=== PATIENT | male | born 1970 | race Caucasian/White ===

== ENCOUNTER 2019-07-28 19:52 | Observation (INO) | payer MEDICARE, MEDICAID ==
[~2019-07-28] VITALS: Ht 188 cm; Wt 108.4 kg
[~2019-07-28 19:52] MED LIST: ACHYD1T PO; ATOR40TA PO; BRIM5DRO12 OP; BRIM5DRO12 OU; C250T PO; CALC-685 PO; CALTRATE 600 +1 EACH PO; CPR500T PO; DCS100C PO; LEVE100015 PO; LORA2TAB PO; MULT-1029 PO; NITR-65 PO; TRAM50TA2 PO; VENL150C PO; VITAMIN C 1000MG PO
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
[2019-07-28 20:16] LABS: BASOPHILS % (AUTO) 0 % (0-10); EOSINOPHILS # (AUTO) 0.4 10^3/uL (0.0-0.3); EOSINOPHILS % (AUTO) 3 % (0-10); HEMATOCRIT 44 % (40-54); HEMOGLOBIN 14.8 G/DL (13.3-17.7); LYMPHOCYTES # (AUTO) 2.2 X 10^3 (1.0-4.0); LYMPHOCYTES % (AUTO) 16 % (12-44); MEAN CORPUSCULAR HEMOGLOBIN 32 PG (25-34); MEAN CORPUSCULAR HGB CONC 34 G/DL (32-36); MEAN CORPUSCULAR VOLUME 94 FL (80-99); MEAN PLATELET VOLUME 10.9 FL (7.4-10.4); MONOCYTES # (AUTO) 1.9 X 10^3 (0.0-1.0); MONOCYTES % (AUTO) 14 % (0-12); NEUTROPHILS # (AUTO) 8.8 X 10^3 (1.8-7.8); NEUTROPHILS % (AUTO) 66 % (42-75); PLATELET COUNT 217 10^3/uL (130-400); RED CELL DISTRIBUTION WIDTH 13.4 % (10.0-14.5); WHITE BLOOD COUNT 13.3 10^3/uL (4.3-11.0)
[2019-07-28 20:34] LABS: ALANINE AMINOTRANSFERASE 55 U/L (0-55); ALBUMIN 3.9 GM/DL (3.2-4.5); ALKALINE PHOSPHATASE 69 U/L (40-136); BILIRUBIN,TOTAL 0.2 MG/DL (0.1-1.0); BUN/CREATININE RATIO 15; CALCIUM 9.3 MG/DL (8.5-10.1); CARBON DIOXIDE 19 MMOL/L (21-32); CHLORIDE 106 MMOL/L (98-107); CREATININE SERUM 0.86 MG/DL (0.60-1.30); GFR ESTIMATED > 60; GLUCOSE 192 MG/DL (70-105); POTASSIUM 4.5 MMOL/L (3.6-5.0); SODIUM 139 MMOL/L (135-145); TOTAL PROTEIN 7.1 GM/DL (6.4-8.2)
--- NOTE | 2019-07-28 20:39 | Diagnostic Imaging Report ---
HISTORY: Fall TECHNIQUE: Single frontal view of the chest COMPARISON: 04/29/2013 FINDINGS: Lung volumes are low. There is mild airspace opacity in the right upper lobe. No pleural effusion or pneumothorax is seen. The cardiac silhouette and mediastinum appear mildly prominent, likely due to low lung volumes. There is tubing overlying the right chest. IMPRESSION: 1. Mild airspace opacities in the right upper lobe. This may be due to atelectasis given the low lung volumes, versus infiltrate. Dictated by: Dictated on workstation # [id number]
[2019-07-28 20:40] LABS: INR 0.9 (0.8-1.4); PROTHROMBIN TIME PATIENT 12.6 SEC (12.2-14.7)
--- NOTE | 2019-07-28 20:40 | Diagnostic Imaging Report ---
HISTORY: Fall with left hip pain TECHNIQUE: Frontal view of the pelvis. Frontal and lateral views of the left hip COMPARISON: 12/31/2012 FINDINGS: Tubing extends along the right pelvis and there is also tubing into the pelvis of the midline. Alignment appears normal. No acute fracture is seen. Joint spaces are preserved. There is heterogeneous material overlying the lower pelvis external to the patient. There may be mild cortical irregularity along the left ilioischial line. IMPRESSION: 1. Subtle cortical irregularity along the left ilioischial line, could represent a nondisplaced fracture. Consider cross-sectional imaging for further evaluation. Dictated by: Dictated on workstation # [id number]
[2019-07-28] MEDS ORDERED: NS IV 1000 ML 1,000 ML IV SCH (20:45)
[2019-07-28] MEDS ORDERED: LIDOCAINE UROJET 2% GEL 10 ML PKG ONE (21:10)
--- NOTE | 2019-07-28 21:20 | NUR ---
IN ROOM TO STRAIGT CATH PATIENT FOR URINE SAMPLE, PATIENT IS INCONTINENT AT THIS TIME A LARGE AMOUNT OF YELLOW URINE. NO SKIN BREAKDOWN NOTED. CLEANSED AND CHANGED. PATIENT DENIES ADDITONAL NEEDS AND DEMONSTRATES USE OF CALL LIGHT WHICH IS LAYING WITHIN REACH OF PATIENT. FREQUENT MONITORING MAINTAINED.
--- NOTE | 2019-07-28 21:25 | Diagnostic Imaging Report ---
PROCEDURE: CT left lower extremity without contrast. TECHNIQUE: Multiple contiguous axial images were obtained through the left lower extremity without the use of intravenous contrast. Sagittal and coronal reformations were then performed. Auto Exposure Controls were utilized during the CT exam to meet ALARA standards for radiation dose reduction. INDICATION: Fall, left hip pain COMPARISON: Radiographs from the same day FINDINGS: No acute fracture is seen in the left hip. There is slight irregularity at the medial cortex of the left acetabulum which appears to be chronic. There is a sclerotic focus at the medial left acetabulum which is consistent with a bone island. There are mild degenerative changes in the left hip joint. There is mild enthesopathy at the ischial tuberosity. Mild degenerative changes seen in the left sacroiliac joint. There is mild generalized muscular atrophy without focal atrophy seen. No soft tissue fluid collections are identified. No free fluid is seen in the pelvis. There is tubing seen within the pelvis near the midline. There is a small fat-containing left inguinal hernia. Calcifications in the left adductor musculature may be from remote trauma. IMPRESSION: 1. Chronic findings in the left hip with no acute osseous abnormality seen. Dictated by: Dictated on workstation # [id number]
[2019-07-28] MEDS ORDERED: KETOROLAC 30 MG/ML VIAL IVP ONE (21:30)
[2019-07-28] MEDS ORDERED: LIDOCAINE UROJET 2% GEL 10 ML PKG TOP ONE (21:30)
[2019-07-28 21:31] LABS: BILIRUBIN,URINE NEGATIVE (NEGATIVE); CLARITY,URINE CLEAR; COLOR,URINE YELLOW; GLUCOSE, URINE (UA) NEGATIVE (NEGATIVE); KETONES,URINE TRACE (NEGATIVE); LEUKOCYTE ESTERASE ,URINE NEGATIVE (NEGATIVE); NITRITE,URINE NEGATIVE (NEGATIVE); PH,URINE 6.5 (5-9); PROTEIN,URINE NEGATIVE (NEGATIVE)
--- OUTSIDE RECORDS SUMMARY | 2019-07-28 21:40 | XMS REPORT ---
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 [employer] [facility] [facility] [place] Address [address] [address] Care Team Providers Care Fuel Buyer Name Role Phone LETTY, NIKKI Unavailable Unavailable KENYETTA FU Unavailable [facility] Unavailable [phone] SAENZ, NIKKI K Unavailable KENYETTA FU Unavailable KENYETTA FU Unavailable GAULT, ADRIANO Unavailable GAULT, ADRIANO Unavailable GAULT, ADRIANO Unavailable GAULT, ADRIANO Unavailable GAULT, ADRIANO Unavailable STUART FRANK Unavailable Unavailable GAULT, ADRIANO Unavailable GAULT, ADRIANO Unavailable Migration, Doctor Unavailable Unavailable Migration, Doctor Unavailable Unavailable Migration, Doctor Unavailable Unavailable Migration, Doctor Unavailable Unavailable Migration, Doctor Unavailable Unavailable SAENZ, NIKKI Unavailable SAENZ, NIKKI Unavailable SAENZ, NIKKI Unavailable SAENZ, NIKKI Unavailable SAENZ, NIKKI Unavailable SAENZ, NIKKI Unavailable SAENZ, NIKKI Unavailable SAENZ, NIKKI Unavailable SAENZ, NIKKI Unavailable GAMCKAY, ADRIANO Unavailable Unavailable KENYETTA FU Unavailable SAENZ, NIKKI Unavailable SAENZ, NIKKI Unavailable SAENZ, NIKKI Unavailable SAENZ, NIKKI Unavailable SAENZ NIKKI Unavailable SAENZ, NIKKI Unavailable KENYETTA FU Unavailable SAENZ, NIKKI Unavailable SAENZ, NIKKI Unavailable SAENZ, NIKKI Unavailable Unavailable Unavailable Unavailable Unavailable Allergies The data below is from unstructured sources Allergen Type Severity Reaction Last Updated No Known Drug Allergies 09/21/12 No Information Medications Medication Ingredient Drug Dose Dates Status Sig Sig Care Class(es) (Normalized) (Original) Provid er no Calcium no Active no Calcium no information Carb-Cholec information information Carb-Choleca name (1 source.) alciferol lciferol Active no Calcium-Vit no Active no Calcium-Manjula no information woo D information information min D name (3 600-400 600-400 sources.) MG-UNIT MG-UNIT Translation Active s: [ Calcium-Vit woo D 600-400 MG-UNIT, Calcium-Vit woo D 600-400 MG-UNIT] no Centrum no 06-12-19 Active no Centrum by no information information 12 information Oral route name (1 source.) May, Active no Centrum no Active no Centrum no information Silver - information information Silver - name (3 Translation Active sources.) s: [ Centrum Silver -, Centrum Silver -] guaiFENesin guaiFENesin no 600 mg 12-03-19 Active take 1 Muc inex 600 no 600 mg oral Translation information 14 tablet by mg 1 tab let name tablet (4 s: [ mouth every by Oral sources.) Mucinex twelve hours route every Maximum as needed 12 hours PRN Strength with plenty 1200 MG, of water 10 Mucinex Nov, 2013 Maximum Active Strength 1200 MG] 1200 mg Active no Mucinex no name inform Maximum ation Strength 1200 MG Orally every 12 hrs 1 tablet as needed 12h Active no Multiple no Active no Multiple no information Vitamins-Mi information information Vitamins-Min name (1 source.) nerals erals Active no Multivitami no 01-06-20 Active no Multivitamin no information n information 13 information 1 Tablet 1 name (1 source.) preparation time per day Dec, Active no senokot-s no Active no Docusate no information information information Sodium name (1 source.) Active no valproate no Active no Depakote no information Translation information information Active na me (4 s: [ sources.) Depakote 500 mg, Depakote 500 mg] 500 mg Active no Depakote no name inform 500 mg ation Orally 2 times a day 1 tablet 12h Active Problems Problem Normalized Date Last Normalized Normalized Provider Fa cility Classification Problem(s) Recorded Problem Problem Sta tus Duration Unclassified Edema, Episodic Active ADRIANO BATES Communit y (20 sources.) unspecified [address] [place] [address] Translations: of [facility] [ - Dependent [place] ([address]) edema R60.9, - Lower extremity edema R60.0, - Lower extremity edema R60.0, - Dependent edema R60.9] Medical Encounter for Episodic Active ADRIANO Hayden ity examination/ev general adult [address] [place] [address] aluation (4 medical of [facility] sources.) examination [place] ([address]) without abnormal findings Translations: [ - Well adult health check Z00.00, - Medicare annual wellness visit, initial Z00.00] Immunizations Encounter for Episodic Active ADRIANO BATES Co mmunity and screening immunization [address] [place] [address] for infectious Translations: of [facility] disease (20 [ - Encounter [place] ([address]) sources.) for immunization Z23, - Encounter for immunization Z23] Residual Localized Episodic Active ADRIANO BATES Community codes; edema [address] [place] [address] unclassified Translations: of [facility] (20 sources.) [ - [place] ([address]) extremity edema R60.0] Other Other symptoms Episodic Active ADRIANO BATES Commu nity connective and signs [address] [place] [address] tissue disease involving the of [facility] (20 sources.) musculoskeleta [place] ([address]16) l system Translations: [ - Weakness of both lower limbs R29.898, - Weakness of both lower limbs R29.898] Spinal cord Unspecified Episodic Active ADRIANO BATES Commun ity injury (20 injury at [address] [place] [address] sources.) unspecified of [facility] level of [place] ([address]) thoracic spinal cord, sequela Translations: [ - Spinal cord injury of thoracic region without bone injury, sequela S24.109S, - Spinal cord injury of thoracic region without bone injury, sequela S24.109S] Intracranial Unspecified Episodic Active ADRIANO BATES Commu nity injury (20 [facility] sources.) injury with of [facility] (22032) consciousness of unspecified duration, sequela Translations: [ - Traumatic brain injury, with loss of consciousness of unspecified duration, sequela S06.9X9S, - Traumatic brain injury with loss of consciousness, sequela S06.9X9S, - Traumatic brain injury, with loss of consciousness of unspecified duration, sequela S06.9X9S, Traumatic brain injury with loss of consciousness, sequela, Traumatic brain injury with loss of consciousness, sequela, - Traumatic brain injury with loss of consciousness, sequela S06.9X9S, Traumatic brain injury with loss of consciousness, sequela] Procedures Procedure Normalized Procedure Procedure Result Performer Facility Date 04-14-2014 Blood count complete no information no name [facility] auto&auto difrntl wbc [facility] ([id number]) 04-14-2014 Comprehensive no information no name [facility] metabolic panel [facility] ([id number]) 11-12-2017 Dental prophylaxis no information no name [facility] adult [facility] ([id number]) 09-12-2017 Fall risk assessment no information no name [facility] docd [facility] ([id number]) 07-23-2017 FQHC visit, estab pt no information no name [facility] ([id number]) 01-14-2017 FQHC visit, estab pt no information no name [facility] ([id number]) 09-12-2017 FQ visit, IPPE or no information no name [facility] AWV [facility] ([id number]) 09-12-2017 Pt tobacco screen rcvd no information no name [facility] tlk [facility] ([id number]) 08-10-2013 Quantitation drug not no information [facility] specified [facility] ([id number]) 04-14-2014 Radiologic examination no information no name [facility] ankle 2 views [facility] ([id number]) 11-12-2017 Topical fluoride no information no name [facility] ([id number]) 04-14-2014 Urnls dip stick/tablet no information no name [facility] rgnt auto w/o [facility] ([id number]) Immunizations Normalized Immunization Date Notes Care Provider Facili ty Immunization influenza, 01-14-2017 - no information ADRIANO BATES [address] [facility] injectable, 01-14-2017 [facility] [place] preservative free Translations: [ FLUARIX QUAD (3 AND UP) 2016] influenza, seasonal, 01-28-2018 no information no name [facility] injectable [facility] ([id number]) tetanus toxoid, 09-12-2017 - no information ADRIANO BATES [address] [facility] reduced diphtheria 09-12-2017 [facility] ([id number]) acellular pertussis vaccine, adsorbed Translations: [ SINGLE IMMUNIZATION ADMIN, TDAP (BOOSTRIX)] SINGLE IMMUNIZATION 01-14-2017 no information ADRIANO BATES 6676 2 [facility] ([id number]) Results The data below is from unstructured sourcesNo Known Results No Results No ResultsNo Known Relevant Diagnostic Tests, Laboratory Data and/or Discharge Summary.No Known Relevant Diagnostic Tests, Laboratory Data and/or Discharge Summary. No Results No Results No Results No Results No Results No Results No Results No Results No Results No Results No Results No Results No Results No Results No Results No Results No Results No Results No Results No Results No Results No Results No Results No Results No Results No Results No Results No Results No Results No Results No Results No Results No Results No Results No Results No Results No Results No Results No Results No Results No Results No Results No Results No Results No Results No Results No Results No Results No Results No Results No Results No Results No Results No Results No Results No Results Vital Signs Vital Sign Value Interpretation Reference Date Time Care Prov ider Facility (Normalized) (Normalized) Range BMI (Body Mass 34.41 kg/m2 (no code) 15 - 25 kg/m2 09-12-2017 HO Y GAULT Community Index) 12:20-[id number] [place] [address] ([id number]) BMI (Body Mass 37.61 kg/m2 (no code) 15 - 25 kg/m2 07-23-2017 HO LLY GAULT Community Index) 14:20-[id number] [place] [address] ([id number]) Body height 187.96 cm (no code) cm 08-24-2013 [employer] [facility] 12:520400 79577 [facility] [place] [facility] ([id number]) Body 97.9 [degF] (no code) 97.8 - 99.0 09-12-2017 [facility]ANOMinnie [facility] Temperature [degF] 12:[id number] [place] [address] ([id number]) Body 98.2 [degF] (no code) 97.8 - 99.0 07-23-2017 AD[facility]ANOMinnie [facility] Temperature [degF] 14: [address] [place] [address] ([id number]) Body 98 [degF] (no code) 97.8 - 99.0 01-14-2017 ADRIANO GI-ViewMCKAY [facility] Temperature [degF] 12:[address] [place] [address] ([id number]) Body 98.6 [degF] (no code) 97.8 - 99.0 08-24-2013 NIKKI SAENZ [facility] temperature [degF] 12:520400 [address] [place] [address] ([id number]) Height 187.96 cm (no code) cm 09-12-2017 ADRIANO GAULT Co mmunity 12: [address] [place] [address] ([id number]) Height 187.96 cm (no code) cm 07-23-2017 ADRIANO GAULT Co mmunity 14: [address] [place] [address] ([id number]) Height 187.96 cm (no code) cm 01-14-2017 ADRIANO GAULT Co mmunity 12:[address] [place] [address] ([id number]) Weight 121.56 kg (no code) kg 09-12-2017 ADRIANO GAULT Co mmunity 12:[address] [place] [address] ([id number]) Weight 132.9 kg (no code) kg 07-23-2017 ADRIANO GAULT Com munity 14: [address] [place] [address] ([id number]) Interventions No Information Plan of Treatment The data below is from unstructured sources Activity Details Follow Up 3 Months with Gault CHM Re ason: Activity Details Follow Up 6 Months with Josy Mallory, will schedule MAWV Reason: Activity Details Follow Up 1 Year with Josy for MAWV Reason: Activity Details Follow Up prn Reason:Recall Goals No Information Social History The data below is from unstructured sources History Response Recorde d Date/Time Hx Family Cancer N 12/25 3:20pm Hx Family Breast Cancer N 12/25/12 3:20pm Hx Family Lung Cancer N 12/25/12 3:20pm Hx Family Colorectal Cancer N 12/25/12 3:20pm Hx Family Cardiac Disorders N 12/25/12 3:20pm Hx Family Stroke N 12/25 3:20pm Hx Family Hypertension Y 12/25/12 3:20pm Hx Family Myocardial Infarction N 12/25/12 3:20pm Hx Family Cystic Fibrosis N 12/25/12 3:20pm History Response Recorde d Date/Time Alcohol Use Denies Use 1 3:32pm Recreational Drug Use N 12/25/12 3:32pm Sexually Transmitted Disease N 12/25/12 3:32pm HIV/AIDS N 12/25/12 3:32 pm History Response Recorde d Date/Time Alcohol Use Denies Use 0 09/21/12 1:20pm Recreational Drug Use N 09/21/12 1:20pm Functional Status No Information Mental Status No Information Encounters Encounter Normalized Encounter Encounter Diagnosis Care Provi valeria Organization Date Type 01-14-2017 (ACUTE) Acute Visit Edema, unspecified ADRIANO BATES (no phone) [facility] - (no phone) 01-14-2017 - 01-14-2017 09-17-2016 (ACUTE) Acute Visit Localized edema ADRIANO BATES (no phone) [facility] - (no phone) 09-17-2016 - 09-17-2016 01-28-2018 (M) Chronic Health Anxiety disorder, ADRIANO BATES (no phone) [facility] - Maintenance unspecified (no phone) 01-28-2018 - 01-28-2018 07-23-2017 (M) Chronic Health Hemiplegia, ADRIANO BATES (no ph one) [facility] - Maintenance unspecified affecting (no cherie ne) 07-23-2017 left nondominant side - 07-23-2017 08-06-2016 (CHM) Chronic Health Dependence on ADRIANO TOLEDOMCKAY (no phone) [facility] - Maintenance wheelchair (no phone) 08-06-2016 - 08-06-2016 11-12-2017 (d-outreach) Dental Encounter for dental STUART MURPHY (no [facility] - Outreach examination and phone) DENTAL (no phone) 11-12-2017 cleaning without - abnormal findings 11-12-2017 02-08-2016 (ESTAB) Establish Care Unspecified ADRIANO BATES (no phone) [facility] - intracranial injury (no phone) 02-08-2016 with loss of - consciousness of 02-08-2016 unspecified duration, sequela 09-12-2017 (MAWV) Medicare Annual Encounter for general ADRIANO BATES (no phone) [facility] - Wellness Visit adult medical (no phone) 09-12-2017 examination without - abnormal findings 09-12-2017 06-19-2016 [facility] no information ADRIANO BATES (no cherie ne) [facility] - NONFQHC NONFQHC (no phone) 06-19-2016 - 06-19-2016 06-12-2016 [facility] no information ADRIANO BATES (no cherie ne) [facility] - NONFQHC NONFQHC (no phone) 06-12-2016 - 06-12-2016 02-01-2017 [facility] no information ADRIANO BATES (n o phone) [facility] - (no phone) 02-01-2017 - 02-01-2017 07-11-2016 [facility] no information ADRIANO BATES (n o phone) [facility] - (no phone) 07-11-2016 - 07-11-2016 03-07-2016 [facility] no information KENYETTA FU (no [facility] - phone) (no phone) 03-07-2016 - 03-07-2016 02-22-2016 [facility] no information KENYETTA FU (no [facility] - phone) (no phone) 02-22-2016 - 02-22-2016 02-07-2016 [facility] no information NIKKI SAENZ (no phone) [facility] - (no phone) 02-07-2016 - 02-07-2016 12-20-2014 [facility] no information NIKKI SAENZ (no phone) [facility] - (no phone) 12-20-2014 - 12-20-2014 07-06-2014 [facility] no information Doctor Migrati on (no [facility] - phone) (no phone) 07-06-2014 - 07-06-2014 07-05-2014 [facility] no information Doctor Migrati on (no [facility] - phone) (no phone) 07-05-2014 - 07-05-2014 05-13-2014 [facility] no information NIKKI SAENZ (no phone) [facility] - Doctor Migration (no (no phone) 05-13-2014 phone) Doctor - Migration (no phone) 05-13-2014 NIKKI SAENZ (no phone) NIKKI SAENZ (no phone) Doctor Migration (no phone) 05-12-2014 [facility] no information Doctor Migrati on (no [facility] - phone) (no phone) 05-12-2014 - 05-12-2014 05-11-2014 [facility] no information NIKKI SAENZ (no phone) [facility] - Doctor Migration (no (no phone) 05-11-2014 phone) NIKKI SAENZ (no - phone) Doctor 05-11-2014 Migration (no phone) NIKKI SAENZ (no phone) Doctor Migration (no phone) 04-26-2014 [facility] no information NIKKI SAENZ (no phone) [facility] - Doctor Migration (no (no phone) 04-26-2014 phone) NIKKI SAENZ (no - phone) Doctor 04-26-2014 Migration (no phone) Doctor Migration (no phone) NIKKI SAENZ (no phone) 04-14-2014 [facility] no information NIKKI SAENZ (no phone) [facility] - Doctor Migration (no (no phone) 04-14-2014 phone) NIKKI SAENZ (no - phone) Doctor 04-14-2014 Migration (no phone) Doctor Migration (no phone) NIKKI SAENZ (no phone) 03-08-2014 [facility] no information NIKKI SAENZ (no phone) [facility] - Doctor Migration (no (no phone) 03-08-2014 phone) NIKKI SAENZ (no - phone) Doctor 03-08-2014 Migration (no phone) Doctor Migration (no phone) NIKKI SAENZ (no phone) 12-18-2013 [facility] no information NIKKI SAENZ (no phone) [facility] - Doctor Migration (no (no phone) 12-18-2013 phone) NIKKI SAENZ (no - phone) Doctor 12-18-2013 Migration (no phone) Doctor Migration (no phone) NIKKI SAENZ (no phone) 12-02-2013 [facility] no information NIKKI SAENZ (no phone) [facility] - Doctor Migration (no (no phone) 12-02-2013 phone) NIKKI SAENZ (no - phone) Doctor 12-02-2013 Migration (no phone) NIKKI SAENZ (no phone) Doctor Migration (no phone) 10-19-2013 [facility] no information NIKKI SAENZ (no phone) [facility] - Doctor Migration (no (no phone) 10-19-2013 phone) NIKKI SAENZ (no - phone) Doctor 10-19-2013 Migration (no phone) NIKKI SAENZ (no phone) Doctor Migration (no phone) 10-16-2013 [facility] no information NIKKI SAENZ (no phone) [facility] - Doctor Migration (no (no phone) 10-16-2013 phone) NIKKI SAENZ (no - phone) Doctor 10-16-2013 Migration (no phone) Doctor Migration (no phone) NIKKI SAENZ (no phone) 09-28-2013 [facility] no information Doctor Migrati on (no [facility] - phone) KENYETTA FU (no phone) 09-28-2013 (no phone) Doctor - Migration (no phone) 09-28-2013 KENYETTA FU (no phone) Doctor Migration (no phone) KENYETTA FU (no phone) 08-24-2013 [facility] no information NIKKI SAENZ (no phone) [facility] - Doctor Migration (no (no phone) 08-24-2013 phone) NIKKI SAENZ (no - phone) Doctor 08-24-2013 Migration (no phone) NIKKI SAENZ (no phone) Doctor Migration (no phone) 08-10-2013 [facility] no information Doctor Migrati on (no [facility] - phone) NIKKI SAENZ (no (no phone) 08-10-2013 phone) Doctor - Migration (no phone) 08-10-2013 NIKKI SAENZ (no phone) Doctor Migration (no phone) NIKKI SAENZ (no phone) 08-04-2013 [facility] no information NIKKI SAENZ (no phone) [facility] - Doctor Migration (no (no phone) 08-04-2013 phone) NIKKI SAENZ (no - phone) Doctor 08-04-2013 Migration (no phone) NIKKI SAENZ (no phone) Doctor Migration (no phone) 07-10-2013 [facility] no information NIKKI SAENZ (no phone) [facility] - Doctor Migration (no (no phone) 07-10-2013 phone) NIKKI SAENZ (no - phone) Doctor 07-10-2013 Migration (no phone) NIKKI SAENZ (no phone) Doctor Migration (no phone) 07-03-2013 [facility] no information KENYETTA FU (no [facility] - phone) Doctor (no phone) 07-03-2013 Migration (no phone) - KENYETTA FU (no 07-03-2013 phone) Doctor Migration (no phone) KENYETTA FU (no phone) Doctor Migration (no phone) 06-19-2013 [facility] no information NIKKI SAENZ (no phone) [facility] - Doctor Migration (no (no phone) 06-19-2013 phone) NIKKI SAENZ (no - phone) Doctor 06-19-2013 Migration (no phone) NIKKI SAENZ (no phone) Doctor Migration (no phone) 05-18-2013 [facility] no information NIKKI SAENZ (no phone) [facility] - Doctor Migration (no (no phone) 05-18-2013 phone) NIKKI SAENZ (no - phone) Doctor 05-18-2013 Migration (no phone) Doctor Migration (no phone) NIKKI SAENZ (no phone) 05-05-2013 [facility] no information Doctor Migrati on (no [facility] - phone) NIKKI SAENZ (no (no phone) 05-05-2013 phone) Doctor - Migration (no phone) 05-05-2013 NIKKI SAENZ (no phone) NIKKI SAENZ (no phone) Doctor Migration (no phone) 04-29-2013 [facility] no information Doctor Migrati on (no [facility] - phone) (no phone) 04-29-2013 - 04-29-2013 04-09-2013 [facility] no information NIKKI SAENZ (no phone) [facility] - Doctor Migration (no (no phone) 04-09-2013 phone) NIKKI SAENZ (no - phone) Doctor 04-09-2013 Migration (no phone) Doctor Migration (no phone) NIKKI SAENZ (no phone) 04-02-2013 [facility] no information NIKKI SAENZ (no phone) [facility] - Doctor Migration (no (no phone) 04-02-2013 phone) NIKKI SAENZ (no - phone) Doctor 04-02-2013 Migration (no phone) Doctor Migration (no phone) NIKKI SAENZ (no phone) 02-26-2013 [facility] no information Doctor Migrati on (no [facility] - phone) NIKKI SAENZ (no (no phone) 02-26-2013 phone) Doctor - Migration (no phone) 02-26-2013 NIKKI SAENZ (no phone) NIKKI SAENZ (no phone) Doctor Migration (no phone) 02-13-2013 [facility] no information Doctor Migrati on (no [facility] - phone) (no phone) 02-13-2013 - 02-13-2013 02-12-2013 [facility] no information NIKKI SAENZ (no phone) [facility] - Doctor Migration (no (no phone) 02-12-2013 phone) NIKKI SAENZ (no - phone) Doctor 02-12-2013 Migration (no phone) Doctor Migration (no phone) NIKKI SAENZ (no phone) 01-05-2013 [facility] no information NIKKI SAENZ (no phone) [facility] - Doctor Migration (no (no phone) 01-05-2013 phone) NIKKI SAENZ (no - phone) Doctor 01-05-2013 Migration (no phone) Doctor Migration (no phone) NIKKI SAENZ (no phone) 12-25-2012 [facility] no information NIKKI SAENZ (no phone) [facility] - (no phone) 12-25-2012 - 12-25-2012 12-08-2012 [facility] no information NIKKI SAENZ (no phone) [facility] - (no phone) 12-08-2012 - 12-08-2012 10-23-2012 [facility] no information NKIKI SAENZ (no phone) [facility] - (no phone) 10-23-2012 - 10-23-2012 10-16-2012 [facility] no information NIKKI SAENZ (no phone) [facility] - (no phone) 10-16-2012 - 10-16-2012 10-15-2012 [facility] no information NIKKI SAENZ (no phone) [facility] - (no phone) 10-15-2012 - 10-15-2012 09-23-2012 [facility] no information Doctor Migrati on (no [facility] - phone) (no phone) 09-23-2012 - 09-23-2012 06-30-2012 [facility] no information NIKKI SAENZ (no phone) [facility] - (no phone) 06-30-2012 - 06-30-2012 06-27-2012 [facility] no information Doctor Migrati on (no [facility] - phone) (no phone) 06-27-2012 - 06-27-2012 05-09-2012 [facility] no information NIKKI SAENZ (no phone) [facility] - (no phone) 05-09-2012 - 05-09-2012 03-26-2012 [facility] no information NIKKI SAENZ (no phone) [facility] - (no phone) 03-26-2012 - 03-26-2012 02-25-2012 [facility] no information KENYETTA FU (no [facility] - phone) Doctor (no phone) 02-25-2012 Migration (no phone) - KENYETTA FU (no 02-25-2012 phone) Doctor Migration (no phone) Doctor Migration (no phone) KENYETTA FU (no phone) 01-07-2012 [facility] no information Doctor Migrati on (no [facility] - phone) KENYETTA FU (no phone) 01-07-2012 (no phone) Doctor - Migration (no phone) 01-07-2012 KENYETTA FU (no phone) KENYETTA FU (no phone) Doctor Migration (no phone) 12-27-2011 [facility] no information NIKKI SAENZ (no phone) [facility] - (no phone) 12-27-2011 - 12-27-2011 12-18-2011 [facility] no information Doctor Migrati on (no [facility] - phone) (no phone) 12-18-2011 - 12-18-2011 12-11-2011 [facility] no information KENYETTA FU (no [facility] - phone) (no phone) 12-11-2011 - 12-11-2011 11-22-2011 [facility] no information KENYETTA FU (no [facility] - phone) (no phone) 11-22-2011 - 11-22-2011 09-27-2011 [facility] no information KENYETTA FU (no [facility] - phone) (no phone) 09-27-2011 - 09-27-2011 08-30-2011 [facility] no information NIKKI SAENZ (no phone) [facility] - (no phone) 08-30-2011 - 08-30-2011 06-14-2011 [facility] no information NIKKI SAENZ (no phone) [facility] - (no phone) 06-14-2011 - 06-14-2011 06-13-2011 [facility] no information NIKKI SAENZ (no phone) [facility] - (no phone) 06-13-2011 - 06-13-2011 06-12-2011 [facility] no information NIKKI SAENZ (no phone) [facility] - (no phone) 06-12-2011 - 06-12-2011 06-11-2011 [facility] no information NIKKI SAENZ (no phone) [facility] - (no phone) 06-11-2011 - 06-11-2011 05-10-2011 [facility] no information NIKKI SAENZ (no phone) [facility] - (no phone) 05-10-2011 - 05-10-2011 01-05-2011 [facility] no information Doctor Migrati on (no [facility] - phone) (no phone) 01-05-2011 - 01-05-2011 12-05-2010 [facility] no information Doctor Migrati on (no [facility] - phone) (no phone) 12-05-2010 - 12-05-2010 03-14-2009 [facility] no information Doctor Migrati on (no [facility] - phone) (no phone) 03-14-2009 - 03-14-2009 02-21-2009 [facility] no information Doctor Migrati on (no [facility] - phone) (no phone) 02-21-2009 - 02-21-2009 02-15-2009 [facility] no information Doctor Migrati on (no [facility] - phone) (no phone) 02-15-2009 - 02-15-2009 02-07-2009 [facility] no information Doctor Migrati on (no [facility] - phone) (no phone) 02-07-2009 - 02-07-2009 09-12-2017 Patient encounter no information no name no or ganization name 07-23-2017 Patient encounter no information no name no or ganization name NEGATED Patient encounter no information no name no or ganization name 11-11-2018 Patient encounter no information no name no or ganization name procedure 02-12-2018 Patient encounter no information no name no or ganization name procedure 09-12-2017 [facility], initial visit no information no name no organization name 01-24-2018 Telephone encounter no information ADRIANO BATES (no phone) JACQUI [facility] - (no phone) 01-24-2018 - 01-24-2018 no information Encounter

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
--- OUTSIDE RECORDS SUMMARY | 2019-07-28 21:40 | XMS REPORT ---
Author Author Bradley SANEZ [facility] Address [address] [place] [address] Care Team Providers Care Private Secretary Name Role Phone NIKKI SAENZ Unavailable PROBLEMS Type Condition ICD9-CM Code SBD47-OT Code Onset Dates Condition S tatus SNOMED Code Problem Other specified glaucoma, unspecified laterality H 40.89 Active 50404522 Problem Mood disorder F39 Active 663028 05 Problem Anxiety F41.9 Active 32005959 Problem Traumatic brain injury with loss of consciousness, sequela S06.9X9S Active 569979694 Problem Hemiplegia, unspecified etio logy, unspecified hemiplegia laterality, unspecified hemiplegia type G81.90 Active 50550665 Problem Other urinary incontinence N39.498 Act bertha 212016355 Problem Other generalized epilepsy, 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, 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 Active 89700755 Problem Wheel chair as ambulatory aid Z99.3 Active 122708790 Problem Seizure disorder G40.909 Active 128 322607 Problem Left hemiplegia G81.94 Active 2782 49578 ALLERGIES No Information ENCOUNTERS Encounter Location Date Diagnosis [facility] [employer] [facility] [address] [place] [address] May, Seizure disorder G40.909 ; Left hemipleg ia G81.94 and Mood disorder F39 [facility] [address] [facility] [id number] [address] [place] [address] Apr, Seizure disorder G40.909 [facility] [address] [facility] [id number] [address] [place] [address] Apr, [facility] [address] [facility] [id number] [address] [place] [address] Feb, [facility] [address] [facility] [id number] [address] [place] [address] Feb, [facility] [address] [facility] [id number] [address] [place] [address] Feb, [facility] [address] [place] [address] Feb, Mood disorder F39 ; Anxiety F41.9 ; Left hemiplegia G81.94 ; Seizure disorder G40.909 ; Traumatic brain injury with loss of consciousness, sequela S06.9X9S ; Other specified glaucoma, unspecified laterality H40.89 and Other urinary incontinence N39.498 [facility] [address] [facility] [id number] [address] [place] [address] Jan, [facility] [address] [place] [address] Oct, Insect bite (nonvenomous) of right forea rm, initial encounter S50.861A [place] [address] [facility] [id number] [address] [place] [address] Sep, [facility] [address] [facility] [id number] [address] [place] [address] Aug, Rash R21 [facility] [address] [place] [address] Aug, Ringworm B35.9 [place] [id number] [facility] [id number] [address] [place] [address] July, [facility] [address] [facility] [id number] [address] [place] [address] July, [facility] [address] [facility] [id number] [address] [place] [address] Jan, [place] [address] [facility] [id number] [address] [place] [address] Jan, Anxiety F41.9 ; Wheel chair as ambulatory aid Z99.3 ; Left hemiplegia G81.94 and Encounter for immunization Z23 [facility] [address] [facility] [id number] [address] [place] [address] Jan, [facility] [address] [id number] [address] [place] [id number] Oct, Dental examination Z01.20 [place] [address] [place] [id number] [address] [place] [address] Aug, Medicare annual wellness vis it, initial Z00.00 ; Traumatic brain injury with loss of consciousness, sequela S06.9X9S ; Anxiety F41.9 ; Mood disorder F39 ; Other specified glaucoma, unspecified laterality H40.89 ; Hemiplegia, unspecified etiology, unspecified hemiplegia laterality, unspecified hemiplegia type G81.90 ; Other generalized epilepsy, 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ble, 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 ; Left hemiplegia G81.94 and Encounter for immunization Z23 [place] [address] [place] [id number] [address] [place] [address] July, Left hemiplegia G81.94 ; Low er extremity edema R60.0 ; Seizure disorder G40.909 and Wheel chair as ambulatory aid Z99.3 [place] [address] [address] Jan, [place] [address] [address] Dec, Dependent edema R60.9 and He miplegia, unspecified etiology, unspecified hemiplegia laterality, unspecified hemiplegia type G81.90 [place] [address] [place] [id number] [address] [place] [address] Aug, Lower extremity edema R60.0 [place] [address] [place] [id number] [address] [place] [address] July, Wheel chair as ambulatory ai d Z99.3 ; Hemiplegia, unspecified etiology, unspecified hemiplegia laterality, unspecified hemiplegia type G81.90 ; Spinal cord injury of thoracic region without bone injury, sequela S24.109S and Weakness of both lower limbs R29.898 [place] [address] [place] [id number] [address] [place] [address] Jun, [facility] [address] [id number] [place] [id number] May, [facility] [address] [id number] [place] [id number] May, [facility] [address] [id number] [address] [place] [address] Feb, [facility] [address] [facility] [id number] [address] [place] [address] 30 Jan, 2016 [facility] [address] [id number] [address] [place] [address] 16 Jan, 2016 Traumatic brain injury, with loss of consciousness of unspecified duration, sequela S06.9X9S ; Well adult health check Z00.00 and Other generalized epilepsy, 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ble, 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 [facility] [address] [facility] [id number] [address] [place] [address] Jan, [facility] [address] [facility] [id number] [address] [place] [address] Nov, [facility] [address] [facility] [id number] [address] [place] [address] Jun, [facility] [address] [facility] [id number] [address] [place] [address] Jun, [facility] [address] [facility] [id number] [address] [place] [address] Apr, [facility] [address] [facility] [id number] [address] [place] [address] Apr, [facility] [address] [id number] [address] [place] [address] 18 Apr, 2014 [facility] [address] [facility] [id number] [address] [place] [address] 17 Apr, 2014 [facility] [address] [facility] [id number] [address] [place] [address] Apr, [facility] [address] [id number] [address] [place] [address], [place] [address] Apr, [facility] [address] [id number] [address] [place] [address], [place] [address] Apr, [facility] [address] [id number] [address] [place] [address], [place] [address] Mar, [facility] [address] [id number] [address] [place] [address], [place] [address] Mar, [facility] [address] [id number] [address] [place] [address], [place] [address] Feb, [facility] [address] [id number] [address] [place] [address], [place] [address] Feb, [facility] [address] [id number] [address] [place] [address], [place] [address] Nov, [facility] [address] [id number] [address] [place] [address], [place] [address] Nov, [facility] [address] [id number] [address] [place] [address], [place] [address] Nov, [facility] [address] [id number] [address] [place] [address], [place] [address] Nov, [facility] [address] [id number] [address] [place] [address], [place] [address] Nov, [facility] [address] [id number] [address] [place] [address], [place] [address] Nov, [facility] [address] [id number] [address] [place] [address], [place] [address] Sep, [facility] [address] [id number] [address] [place] [address], [place] [address] Sep, [facility] [address] [id number] [address] [place] [address], [place] [address] Sep, [facility] [address] [id number] [address] [place] [address], [place] [address] Sep, [facility] [address] [id number] [facility] [place] [address] Sep, [facility] [address] [id number] [address] [place] [address], [place] [address] Sep, [facility] [address] [id number] [address] [place] [address], [place] [address] Aug, [facility] [address] [id number] [address] [place] [address], [place] [address] Aug, [facility] [address] [id number] [address] [place] [address], [place] [address] July, [facility] [address] [id number] [address] [place] [address], [place] [address] July, [facility] [address] [id number] [address] [place] [address], [place] [address] July, [facility] [address] [id number] [address] [place] [address], [place] [address] July, [facility] [address] [id number] [address] [place] [address], [place] [address] Jun, [facility] [address] [id number] [address] [place] [address], [place] [address] Jun, [facility] [address] [id number] [address] [place] [address], [place] [address] Jun, [facility] [address] [id number] [address] [place] [address], [place] [address] Jun, [facility] [address] [id number] [address] [place] [address], [place] [address] May, [facility] [address] [id number] [address] [place] [address], [place] [address] May, [facility] [address] [id number] [address] [place] [address], [place] [address] Apr, [facility] [address] [id number] [address] [place] [address], [place] [address] Apr, [facility] [address] [id number] [address] [place] [address], [place] [address] Apr, [facility] [address] [id number] [address] [place] [address], [place] [address] Apr, [facility] [address] [id number] [address] [place] [address], [place] [address] Apr, [facility] [address] [id number] [address] [place] [address], [place] [address] Mar, [facility] [address] [id number] [address] [place] [address], [place] [address] Mar, [facility] [address] [id number] [address] [place] [address], [place] [address] Mar, [facility] [address] [id number] [address] [place] [address], [place] [address] Mar, [facility] [address] [id number] [address] [place] [address], [place] [address] Feb, [facility] [address] [id number] [address] [place] [address], [place] [address] Feb, [facility] [address] [id number] [address] [place] [address], [place] [address] Jan, [facility] [address] [id number] [address] [place] [address], [place] [address] Jan, [facility] [address] [id number] [address] [place] [address], [place] [address] Jan, [facility] [address] [id number] [address] [place] [address], [place] [address] Jan, [facility] [address] [id number] [address] [place] [address], [place] [address] 14 Dec, 2012 [facility] [address] [id number] [address] [place] [address], [place] [address] 14 Dec, 2012 [facility] [address] [id number] [address] [place] [address], [place] [address] Dec, [facility] [address] [id number] [address] [place] [address], [place] [address] Nov, [facility] [address] [id number] [address] [place] [address], [place] [address] Oct, [facility] [address] [id number] [address] [place] [address], [place] [address] Sep, [facility] [address] [id number] [address] [place] [address], [place] [address] Sep, [facility] [address] [id number] [address] [place] [address], [place] [address] Sep, [facility] [address] [id number] [address] [place] [address], [place] [address] Jun, [facility] [address] [id number] [address] [place] [address], [place] [address] Jun, [facility] [address] [id number] [address] [place] [address], [place] [address] Apr, [facility] [address] [id number] [address] [place] [address], [place] [address] Mar, [facility] [address] [id number] [address] [place] [address], [place] [address] Feb, [facility] [address] [id number] [address] [place] [address] Feb, [facility] [address] [id number] [address] [place] [address], [place] [address] Dec, [facility] [address] [id number] [address] [place] [address], [place] [address] Dec, [facility] [address] [id number] [address] [place] [address], [place] [address] Dec, [facility] [address] [id number] [address] [place] [address], [place] [address] 25 Nov, 2011 [facility] [address] [id number] [address] [place] [address], [place] [address] 18 Nov, 2011 [facility] [address] [id number] [address] [place] [address], [place] [address] 30 Oct, 2011 [facility] [address] [id number] [address] [place] [address], [place] [address] 05 Sep, 2011 [facility] [address] [id number] [address] [place] [address], [place] [address] Aug, [facility] [address] [id number] [address] [place] [address], [place] [address] 22 May, 2011 [facility] [address] [id number] [address] [place] [address], [place] [address] May, [facility] [address] [id number] [address] [place] [address], [place] [address] May, [facility] [address] [id number] [address] [place] [address], [place] [address] May, [facility] [address] [id number] [address] [place] [address], [place] [address] May, [facility] [address] [id number] [address] [place] [address], [place] [address] 16 Apr, 2011 [facility] [address] [id number] [address] [place] [address], [place] [address] 14 Dec, 2010 [facility] [address] [id number] [address] [place] [address], [place] [address] 13 Nov, 2010 [facility] [address] [id number] [address] [place] [address], [place] [address] Feb, [facility] [address] [id number] [address] [place] [address], [place] [address] 30 Jan, 2009 [facility] [address] [id number] [address] [place] [address], [place] [address] Jan, [facility] [address] [facility] [id number] [address] [place] [address] Jan, [facility] [address] [facility] [id number] [address] [place] [address] Jan, IMMUNIZATIONS No Known Immunizations SOCIAL HISTORY [...]
--- OUTSIDE RECORDS SUMMARY | 2019-07-28 21:41 | XMS REPORT ---
Author Author Bradley SAENZ [facility] Address [address] [place] [address] Care Team Providers Care Stained Glass Artist Name Role Phone NIKKI SAENZ Unavailable PROBLEMS Type Condition ICD9-CM Code QHY95-WS Code Onset Dates Condition S tatus SNOMED Code Problem Other specified glaucoma, unspecified laterality H 40.89 Active 65966135 Problem Mood disorder F39 Active 882958 05 Problem Anxiety F41.9 Active 96409233 Problem Traumatic brain injury with loss of consciousness, sequela S06.9X9S Active 279697888 Problem Hemiplegia, unspecified etio logy, unspecified hemiplegia laterality, unspecified hemiplegia type G81.90 Active 14888025 Problem Other urinary incontinence N39.498 Act bertha 740444570 Problem Other generalized epilepsy, 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 [address] [id number] [place] [address] Apr, Seizure disorder G40.909 [facility] [id number] [place] [address] Apr, [facility] [address] [id number] [place] [address] Feb, [facility] [address] [id number] [place] [address] Feb, [place] [id number] [address] Feb, [facility] [address] [place] [address] Feb, Mood disorder F39 ; Anxiety F41.9 ; Left hemiplegia G81.94 ; Seizure disorder G40.909 ; Traumatic brain injury with loss of consciousness, sequela S06.9X9S ; Other specified glaucoma, unspecified laterality H40.89 and Other urinary incontinence N39.498 [place] [address] [address] Jan, [facility] [address] [place] [address] Oct, Insect bite (nonvenomous) of right forea rm, initial encounter S50.861A [place] [address] [address] Sep, [place] [address] [address] Aug, Rash R21 [facility] [address] [place] [address] Aug, Ringworm B35.9 [place] [address] [address] July, [place] [address] [address] July, [place] [address] [address] Jan, [place] [address] [address] Jan, Anxiety F41.9 ; Wheel chair as ambulator y aid Z99.3 ; Left hemiplegia G81.94 and Encounter for immunization Z23 [place] [address] [address] Jan, [facility] [id number] [place] [id number] Oct, Dental examination Z01.20 [place] [address] [address] Aug, Medicare annual wellness visit, initial Z00.00 ; Traumatic brain injury with loss of consciousness, sequela S06.9X9S ; Anxiety F41.9 ; Mood disorder F39 ; Other specified glaucoma, unspecified laterality H40.89 ; Hemiplegia, unspecified etiology, unspecified hemiplegia laterality, unspecified hemiplegia type G81.90 ; Other generalized epilepsy, 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ble, 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 ; Left hemiplegia G81.94 and Encounter for immunization Z23 [place] [address] [address] July, Left hemiplegia G81.94 ; Lower extremity edema R60.0 ; Seizure disorder G40.909 and Wheel chair as ambulatory aid Z99.[address] [address] Jan, [place] [address] [address] Dec, Dependent edema R60.9 and Hemiplegia, un specified etiology, unspecified hemiplegia laterality, unspecified hemiplegia type G81.90 [place] [address] [address] Aug, Lower extremity edema R60.0 [place] [address] [address] July, Wheel chair as ambulatory aid Z99.3 ; He miplegia, unspecified etiology, unspecified hemiplegia laterality, unspecified hemiplegia type G81.90 ; Spinal cord injury of thoracic region without bone injury, sequela S24.109S and Weakness of both lower limbs R29.898 [place] [address] [address] Jun, [place] [address] [place] [id number] [facility] [place] [id number] May, [id number] [place] [id number] May, [facility] [address] [address] Feb, [facility] [address] [address] Jan, [facility] [address] [address] Jan, Traumatic brain injury, with loss of con sciousness of unspecified duration, sequela S06.9X9S ; Well adult health check Z00.00 and Other generalized epilepsy, 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ble, 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 [facility] [address] [address] Jan, [facility] [address] [address] 28 Nov, 2014 [facility] [address] [address] 14 Jun, 2014 [facility] [address] [address] 13 Jun, 2014 [facility] [address] [address] Apr, [facility] [address] [address] Apr, 2014 [facility] [address] [address] 18 Apr, 2014 [facility] [address] [address] Apr, 2014 [facility] [address] [address] Apr, 2014 [facility] [address] [address] Apr, 2014 [facility] [address] [address] Apr, 2014 [facility] [address] [facility] [id number] [place] [address] Mar, [facility] [address] [facility] [id number] [place] [address] Mar, [facility] [address] [id number] [place] [address] Feb, [facility] [address] [id number] [place] [address] Feb, [facility] [address] [facility] [id number] [place] [address] Nov, [facility] [address] [facility] [id number] [place] [address] Nov, [facility] [address] [id number] [place] [address] Nov, [facility] [address] [id number] [place] [address] Nov, [facility] [address] [id number] [place] [address] Nov, [facility] [address] [id number] [place] [address] Nov, [facility] [address] [id number] [place] [address] Sep, [facility] [address] [id number] [place] [address] Sep, [facility] [address] [id number] [place] [address] Sep, [facility] [address] [facility] [id number] [place] [address] Sep, [facility] [address] [id number] [place] [address] Sep, [facility] [address] [id number] [place] [address] Sep, [facility] [address] [id number] [place] [address] Aug, [facility] [address] [facility] [id number] [place] [address] Aug, [facility] [address] [facility] [id number] [facility] [place] [address] July, [facility] [address] [facility] [id number] [place] [address] July, [facility] [address] [id number] [place] [address] July, [facility] [address] [facility] [id number] [place] [address] July, [facility] [address] [id number] [place] [address] Jun, [facility] [address] [id number] [place] [address] Jun, [facility] [address] [id number] [place] [address] Jun, [facility] [address] [id number] [place] [address] Jun, [facility] [address] [id number] [place] [address] May, [facility] [address] [id number] [place] [address] May, [facility] [address] [id number] [place] [address] Apr, [facility] [address] [facility] [id number] [place] [address] Apr, [facility] [address] [id number] [place] [address] Apr, [facility] [address] [id number] [place] [address] Apr, [facility] [address] [id number] [place] [address] Apr, [facility] [address] [id number] [place] [address] Mar, [facility] [address] [id number] [place] [address] Mar, [facility] [address] [id number] [place] [address] Mar, [facility] [address] [id number] [place] [address] Mar, [facility] [address] [id number] [place] [address] Feb, [facility] [address] [id number] [place] [address] Feb, [facility] [address] [id number] [place] [address] Jan, [facility] [id number] [place] [address] Jan, [facility] [id number] [place] [address] Jan, [facility] [address] [id number] [place] [address] Jan, [facility] [address] [id number] [place] [address] Dec, [facility] [address] [id number] [place] [address] Dec, [facility] [address] [id number] [place] [address] Dec, [facility] [address] [id number] [place] [address] Nov, [facility] [id number] [place] [address] Oct, [facility] [address] [id number] [place] [address] Sep, [facility] [address] [id number] [place] [address] Sep, [facility] [address] [id number] [place] [address] Sep, [facility] [address] [id number] [place] [address] Jun, [facility] [address] [id number] [place] [address] Jun, [facility] [id number] [place] [address] Apr, [facility] [address] [id number] [place] [address] Mar, [facility] [id number] [place] [address] Feb, [facility] [id number] [place] [address] Feb, [facility] [id number] [place] [address] Dec, [facility] [id number] [place] [address] Dec, [facility] [id number] [place] [address] Dec, [facility] [id number] [place] [address] Nov, [facility] [id number] [place] [address] Nov, [facility] [address] [id number] [place] [address] Oct, [facility] [address] [id number] [place] [address] Sep, [facility] [id number] [place] [address] Aug, [facility] [address] [id number] [place] [address] May, [facility] [id number] [place] [address] May, [facility] [id number] [place] [address] May, [facility] [id number] [place] [address] May, [facility] [id number] [place] [address] May, [facility] [id number] [place] [address] Apr, [facility] [id number] [place] [address] Dec, [facility] [address] [address] Nov, [facility] [id number] [place] [address] Feb, [facility] [id number] [place] [address] 30 Jan, 2009 [facility] [id number] [place] [address] Jan, [facility] [id number] [place] [address] Jan, [facility] [id number] [place] [address] Jan, IMMUNIZATIONS No Known Immunizations SOCIAL HISTORY [...]
--- OUTSIDE RECORDS SUMMARY | 2019-07-28 21:41 | XMS REPORT ---
Author Author Bradley FU Organization [facility] Address [address] [place] [address] Care Team Providers Care Utility Division Project Manager Name Role Phone KENYETTA FU Unavailable PROBLEMS Type Condition ICD9-CM Code HCE43-ZY Code Onset Dates Condition S tatus SNOMED Code Problem Other specified glaucoma, unspecified laterality H 40.89 Active 10122783 Problem Mood disorder F39 Active 942167 05 Problem Anxiety F41.9 Active 04407672 Problem Traumatic brain injury with loss of consciousness, sequela S06.9X9S Active 758980063 Problem Hemiplegia, unspecified etio logy, unspecified hemiplegia laterality, unspecified hemiplegia type G81.90 Active 23829794 Problem Other urinary incontinence N39.498 Act bertha 691011425 Problem Other generalized epilepsy, 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, 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 Active 67611531 Problem Wheel chair as ambulatory aid Z99.3 Active 235255605 Problem Seizure disorder G40.909 Active 128 393393 Problem Left hemiplegia G81.94 Active 2782 37544 ALLERGIES No Information ENCOUNTERS Encounter Location Date Diagnosis [facility] [employer] [facility] [address] [place] [address] May, Seizure disorder G40.909 ; Left hemipleg ia G81.94 and Mood disorder F39 [facility] [address] [facility] [id number] [address] [place] [address] Apr, Seizure disorder G40.909 [facility] [address] [facility] [id number] [address] [place] [address] Apr, [facility] [address] [facility] [id number] [address] [place] [address] Feb, [facility] [address] [facility] [id number] [address] [place] [address] Feb, [facility] [address] [facility] [id number] [address] [place] [address] Feb, [employer] [address] [place] [address] Feb, Mood disorder F39 ; Anxiety F41.9 ; Left hemiplegia G81.94 ; Seizure disorder G40.909 ; Traumatic brain injury with loss of consciousness, sequela S06.9X9S ; Other specified glaucoma, unspecified laterality H40.89 and Other urinary incontinence N39.498 [facility] [address] [facility] [id number] [address] [place] [address] Jan, [employer] [address] [place] [address] Oct, Insect bite (nonvenomous) of right forea rm, initial encounter S50.861A [place] [address] [facility] [id number] [address] [place] [address] Sep, [facility] [address] [facility] [id number] [address] [place] [address] Aug, Rash R21 [employer] [address] [place] [address] Aug, Ringworm B35.9 [place] [address] [facility] [id number] [address] [place] [address] July, [facility] [address] [facility] [id number] [address] [place] [address] July, [facility] [address] [facility] [id number] [address] [place] [address] Jan, [place] [address] [facility] [id number] [address] [place] [address] Jan, Anxiety F41.9 ; Wheel chair as ambulatory aid Z99.3 ; Left hemiplegia G81.94 and Encounter for immunization Z23 [facility] [address] [facility] [id number] [address] [place] [address] Jan, [facility] [address] [id number] [address] [place] [id number] Oct, Dental examination Z01.20 [place] [address] [place] [id number] [address] [place] [address] Aug, Medicare annual wellness vis it, initial Z00.00 ; Traumatic brain injury with loss of consciousness, sequela S06.9X9S ; Anxiety F41.9 ; Mood disorder F39 ; Other specified glaucoma, unspecified laterality H40.89 ; Hemiplegia, unspecified etiology, unspecified hemiplegia laterality, unspecified hemiplegia type G81.90 ; Other generalized epilepsy, 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ble, 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 ; Left hemiplegia G81.94 and Encounter for immunization Z23 [place] [address] [place] [id number] [address] [place] [address] July, Left hemiplegia G81.94 ; Low er extremity edema R60.0 ; Seizure disorder G40.909 and Wheel chair as ambulatory aid Z99.3 [place] [address] [address] Jan, [place] [address] [address] Dec, Dependent edema R60.9 and He miplegia, unspecified etiology, unspecified hemiplegia laterality, unspecified hemiplegia type G81.90 [place] [address] [address] [place] [id number] [address] [place] [address] Aug, Lower extremity edema R60.0 [place] [address] [place] [id number] [address] [place] [address] July, Wheel chair as ambulatory ai d Z99.3 ; Hemiplegia, unspecified etiology, unspecified hemiplegia laterality, unspecified hemiplegia type G81.90 ; Spinal cord injury of thoracic region without bone injury, sequela S24.109S and Weakness of both lower limbs R29.898 [place] [address] [place] [id number] [address] [place] [address] Jun, [facility] [address] [id number] [id number] May, [facility] [address] [id number] [place] [id number] May, [facility] [address] [id number] [address] [place] [address] Feb, [facility] [address] [facility] [id number] [address] [place] [address] 30 Jan, 2016 [facility] [address] [id number] [address] [place] [address] 16 Jan, 2016 Traumatic brain injury, with loss of consciousness of unspecified duration, sequela S06.9X9S ; Well adult health check Z00.00 and Other generalized epilepsy, 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ble, 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 [facility] [address] [facility] [id number] [address] [place] [address] Jan, [facility] [address] [facility] [id number] [address] [place] [address] Nov, [facility] [address] [facility] [id number] [address] [place] [address] Jun, [facility] [address] [facility] [id number] [address] [place] [address] Jun, [facility] [address] [facility] [id number] [address] [place] [address] Apr, [facility] [address] [facility] [id number] [address] [place] [address] Apr, [facility] [address] [id number] [address] [place] [address] 18 Apr, 2014 [facility] [address] [facility] [id number] [address] [place] [address] 17 Apr, 2014 [facility] [address] [facility] [id number] [address] [place] [address] Apr, [facility] [address] [id number] [address] [place] [address], [place] [address] Apr, [facility] [address] [id number] [address] [place] [address], [place] [address] Apr, [facility] [address] [id number] [address] [place] [address], [place] [address] Mar, [facility] [address] [id number] [address] [place] [address], [place] [address] Mar, [facility] [address] [id number] [address] [place] [address], [place] [address] Feb, [facility] [address] [id number] [address] [place] [address], [place] [address] Feb, [facility] [address] [id number] [address] [place] [address], [place] [address] Nov, [facility] [address] [id number] [address] [place] [address], [place] [address] Nov, [facility] [address] [id number] [address] [place] [address], [place] [address] Nov, [facility] [address] [id number] [address] [place] [address], [place] [address] Nov, [facility] [address] [id number] [address] [place] [address], [place] [address] Nov, [facility] [address] [id number] [address] [place] [address], [place] [address] Nov, [facility] [address] [id number] [address] [place] [address], [place] [address] Sep, [facility] [address] [id number] [address] [place] [address], [place] [address] Sep, [facility] [address] [id number] [address] [place] [address], [place] [address] Sep, [facility] [address] [id number] [address] [place] [address], [place] [address] Sep, [facility] [address] [id number] [facility] [place] [address] Sep, [facility] [address] [id number] [address] [place] [address], [place] [address] Sep, [facility] [address] [id number] [address] [place] [address], [place] [address] Aug, [facility] [address] [id number] [address] [place] [address], [place] [address] Aug, [facility] [address] [id number] [address] [place] [address], [place] [address] July, [facility] [address] [id number] [address] [place] [address], [place] [address] July, [facility] [address] [id number] [address] [place] [address], [place] [address] July, [facility] [address] [id number] [address] [place] [address], [place] [address] July, [facility] [address] [id number] [address] [place] [address], [place] [address] Jun, [facility] [address] [id number] [address] [place] [address], [place] [address] Jun, [facility] [address] [id number] [address] [place] [address], [place] [address] Jun, [facility] [address] [id number] [address] [place] [address], [place] [address] Jun, [facility] [address] [id number] [address] [place] [address], [place] [address] May, [facility] [address] [id number] [address] [place] [address], [place] [address] May, [facility] [address] [id number] [address] [place] [address], [place] [address] Apr, [facility] [address] [id number] [address] [place] [address], [place] [address] Apr, [facility] [address] [id number] [address] [place] [address], [place] [address] Apr, [facility] [address] [id number] [address] [place] [address], [place] [address] Apr, [facility] [address] [id number] [address] [place] [address], [place] [address] Apr, [facility] [address] [id number] [address] [place] [address], [place] [address] Mar, [facility] [address] [id number] [address] [place] [address], [place] [address] Mar, [facility] [address] [id number] [address] [place] [address], [place] [address] Mar, [facility] [address] [id number] [address] [place] [address], [place] [address] Mar, [facility] [address] [id number] [address] [place] [address], [place] [address] Feb, [facility] [address] [id number] [address] [place] [address], [place] [address] Feb, [facility] [address] [id number] [address] [place] [address], [place] [address] Jan, [facility] [address] [id number] [address] [place] [address], [place] [address] Jan, [facility] [address] [id number] [address] [place] [address], [place] [address] Jan, [facility] [address] [id number] [address] [place] [address], [place] [address] Jan, [facility] [address] [id number] [address] [place] [address], [place] [address] 14 Dec, 2012 [facility] [address] [id number] [address] [place] [address], [place] [address] 14 Dec, 2012 [facility] [address] [id number] [address] [place] [address], [place] [address] Dec, [facility] [address] [id number] [address] [place] [address], [place] [address] Nov, [facility] [address] [id number] [address] [place] [address], [place] [address] Oct, [facility] [address] [id number] [address] [place] [address], [place] [address] Sep, [facility] [address] [id number] [address] [place] [address], [place] [address] Sep, [facility] [address] [id number] [address] [place] [address], [place] [address] Sep, [facility] [address] [id number] [address] [place] [address], [place] [address] Jun, [facility] [address] [id number] [address] [place] [address], [place] [address] Jun, [facility] [address] [id number] [address] [place] [address], [place] [address] Apr, [facility] [address] [id number] [address] [place] [address], [place] [address] Mar, [facility] [address] [id number] [address] [place] [address], [place] [address] Feb, [facility] [address] [id number] [address] [place] [address] Feb, [facility] [address] [id number] [address] [place] [address], [place] [address] Dec, [facility] [address] [id number] [address] [place] [address], [place] [address] Dec, [facility] [address] [id number] [address] [place] [address], [place] [address] Dec, [facility] [address] [id number] [address] [place] [address], [place] [address] 25 Nov, 2011 [facility] [address] [id number] [address] [place] [address], [place] [address] 18 Nov, 2011 [facility] [address] [id number] [address] [place] [address], [place] [address] 30 Oct, 2011 [facility] [address] [id number] [address] [place] [address], [place] [address] 05 Sep, 2011 [facility] [address] [id number] [address] [place] [address], [place] [address] Aug, [facility] [address] [id number] [address] [place] [address], [place] [address] 22 May, 2011 [facility] [address] [id number] [address] [place] [address], [place] [address] May, [facility] [address] [id number] [address] [place] [address], [place] [address] May, [facility] [address] [id number] [address] [place] [address], [place] [address] May, [facility] [address] [id number] [address] [place] [address], [place] [address] May, [facility] [address] [id number] [address] [place] [address], [place] [address] 16 Apr, 2011 [facility] [address] [id number] [address] [place] [address], [place] [address] 14 Dec, 2010 [facility] [address] [id number] [address] [place] [address], [place] [address] 13 Nov, 2010 [facility] [address] [id number] [address] [place] [address], [place] [address] Feb, [facility] [address] [id number] [address] [place] [address], [place] [address] 30 Jan, 2009 [facility] [address] [id number] [address] [place] [address], [place] [address] Jan, [facility] [address] [facility] [id number] [address] [place] [address] Jan, [facility] [address] [facility] [id number] [address] [place] [address] Jan, IMMUNIZATIONS No Known Immunizations SOCIAL HISTORY [...]
--- OUTSIDE RECORDS SUMMARY | 2019-07-28 21:41 | XMS REPORT ---
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 Name Role Phone NIKKI SAENZ Unavailable PROBLEMS Type Condition ICD9-CM Code PXK19-WR Code Onset Dates Condition S tatus SNOMED Code Problem Other specified glaucoma, unspecified laterality H 40.89 Active 13295206 Problem Mood disorder F39 Active 872559 05 Problem Anxiety F41.9 Active 07008920 Problem Traumatic brain injury with loss of consciousness, sequela S06.9X9S Active 918277157 Problem Hemiplegia, unspecified etio logy, unspecified hemiplegia laterality, unspecified hemiplegia type G81.90 Active 78789453 Problem Other urinary incontinence N39.498 Act bertha 508314689 Problem Other generalized epilepsy, 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, 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 Active 12853043 Problem Wheel chair as ambulatory aid Z99.3 Active 092305307 Problem Seizure disorder G40.909 Active 128 122973 Problem Left hemiplegia G81.94 Active 2782 86217 ALLERGIES No Information ENCOUNTERS Encounter Location Date Diagnosis [facility] [employer] [facility] [address] [address] May, Seizure disorder G40.909 ; Left hemipleg ia G81.94 and Mood disorder F39 [facility] [address] [id number] [address] [place] [address] Apr, Seizure disorder G40.909 [facility] [address] [id number] [address] [place] [phone] Apr, [facility] [address] [id number] [address] [place] [address] Feb, [facility] [address] [id number] [address] [place] [address] Feb, [facility] [address] [id number] [address] [place] [address] Feb, [employer] [address] [place] [address] Feb, Mood disorder F39 ; Anxiety F41.9 ; Left hemiplegia G81.94 ; Seizure disorder G40.909 ; Traumatic brain injury with loss of consciousness, sequela S06.9X9S ; Other specified glaucoma, unspecified laterality H40.89 and Other urinary incontinence N39.498 [facility] [address] [id number] [address] [place] [address] Jan, [facility] [address] [place] [address] Oct, Insect bite (nonvenomous) of right forea rm, initial encounter S50.861A [place] [address] [id number] [address] [place] [address] Sep, [facility] [address] [id number] [address] [place] [address] Aug, Rash R21 [facility] [address] [place] [address] Aug, Ringworm B35.9 [place] [address] [id number] [address] [place] [address] July, [facility] [address] [id number] [address] [place] [address] July, [facility] [address] [id number] [address] [place] [address] Jan, [place] [address] [id number] [address] [place] [address] Jan, Anxiety F41.9 ; Wheel chair as ambulatory aid Z99.3 ; Left hemiplegia G81.94 and Encounter for immunization Z23 [facility] [address] [id number] [address] [place] [address] Jan, [facility] [address] [id number] [address] [place] [id number] Oct, Dental examination Z01.20 [place] [address] [place] [id number] [address] [place] [address] Aug, Medicare annual wellness vis it, initial Z00.00 ; Traumatic brain injury with loss of consciousness, sequela S06.9X9S ; Anxiety F41.9 ; Mood disorder F39 ; Other specified glaucoma, unspecified laterality H40.89 ; Hemiplegia, unspecified etiology, unspecified hemiplegia laterality, unspecified hemiplegia type G81.90 ; Other generalized epilepsy, 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ble, 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 ; Left hemiplegia G81.94 and Encounter for immunization Z23 [place] [address] [place] [id number] [address] [place] [address] July, Left hemiplegia G81.94 ; Low er extremity edema R60.0 ; Seizure disorder G40.909 and Wheel chair as ambulatory aid Z99.3 [place] [address] [address] Jan, [place] [address] [address] Dec, Dependent edema R60.9 and He miplegia, unspecified etiology, unspecified hemiplegia laterality, unspecified hemiplegia type G81.90 [place] [address] [place] [id number] [address] [place] [address] Aug, Lower extremity edema R60.0 [place] [address] [place] [id number] [address] [place] [address] July, Wheel chair as ambulatory ai d Z99.3 ; Hemiplegia, unspecified etiology, unspecified hemiplegia laterality, unspecified hemiplegia type G81.90 ; Spinal cord injury of thoracic region without bone injury, sequela S24.109S and Weakness of both lower limbs R29.898 [place] [address] [place] [id number] [address] [place] [phone] Jun, [facility] [address] [id number] [place] [id number] May, [facility] [address] [id number] [place] [id number] May, [facility] [address] [id number] [address] [place] [address] Feb, [facility] [address] [id number] [address] [place] [address] 30 Jan, 2016 [facility] [address] [id number] [address] [place] [address] 16 Jan, 2016 Traumatic brain injury, with loss of consciousness of unspecified duration, sequela S06.9X9S ; Well adult health check Z00.00 and Other generalized epilepsy, 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ble, 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 [facility] [address] [id number] [address] [place] [address] Jan, [facility] [address] [id number] [address] [place] [phone] Nov, [facility] [address] [id number] [address] [place] [phone] Jun, [facility] [address] [id number] [address] [place] [phone] Jun, [facility] [address] [id number] [address] [place] [address] Apr, [facility] [address] [id number] [address] [place] [phone] Apr, [facility] [address] [id number] [address] [place] [phone] 18 Apr, 2014 [facility] [address] [id number] [address] [place] [phone] 17 Apr, 2014 [facility] [address] [id number] [address] [place] [phone] Apr, [facility] [address] [id number] [address] [place] [address], [place] [address] Apr, [facility] [address] [id number] [address] [place] [address], [place] [address] Apr, [facility] [address] [id number] [address] [place] [address], [place] [address] Mar, [facility] [address] [id number] [address] [place] [address], [place] [address] Mar, [facility] [address] [id number] [address] [place] [address], [place] [address] Feb, [facility] [address] [id number] [address] [place] [address], [place] [address] Feb, [facility] [address] [id number] [address] [place] [address], [place] [address] Nov, [facility] [address] [id number] [address] [place] [address], [place] [address] Nov, [facility] [address] [id number] [address] [place] [address], [place] [address] Nov, [facility] [address] [id number] [address] [place] [address], [place] [address] Nov, [facility] [address] [id number] [address] [place] [address], [place] [address] Nov, [facility] [address] [id number] [address] [place] [address], [place] [address] Nov, [facility] [address] [id number] [address] [place] [address], [place] [address] Sep, [facility] [address] [id number] [address] [place] [address], [place] [address] Sep, [facility] [address] [id number] [address] [place] [address], [place] [address] Sep, [facility] [address] [id number] [address] [place] [address], [place] [address] Sep, [facility] [address] [id number] [facility] [place] [address] Sep, [facility] [address] [id number] [address] [place] [address], [place] [address] Sep, [facility] [address] [id number] [address] [place] [address], [place] [address] Aug, [facility] [address] [id number] [address] [place] [address], [place] [address] Aug, [facility] [address] [id number] [address] [place] [address], [place] [address] July, [facility] [address] [id number] [address] [place] [address], [place] [address] July, [facility] [address] [id number] [address] [place] [address], [place] [address] July, [facility] [address] [id number] [address] [place] [address], [place] [address] July, [facility] [address] [id number] [address] [place] [address], [place] [address] Jun, [facility] [address] [id number] [address] [place] [address], [place] [address] Jun, [facility] [address] [id number] [address] [place] [address], [place] [address] Jun, [facility] [address] [id number] [address] [place] [address], [place] [address] Jun, [facility] [address] [id number] [address] [place] [address], [place] [address] May, [facility] [address] [id number] [address] [place] [address], [place] [address] May, [facility] [address] [id number] [address] [place] [address], [place] [address] Apr, [facility] [address] [id number] [address] [place] [address], [place] [address] Apr, [facility] [address] [id number] [address] [place] [address], [place] [address] Apr, [facility] [address] [id number] [address] [place] [address], [place] [address] Apr, [facility] [address] [id number] [address] [place] [address], [place] [address] Apr, [facility] [address] [id number] [address] [place] [address], [place] [address] Mar, [facility] [address] [id number] [address] [place] [address], [place] [address] Mar, [facility] [address] [id number] [address] [place] [address], [place] [address] Mar, [facility] [address] [id number] [address] [place] [address], [place] [address] Mar, [facility] [address] [id number] [address] [place] [address], [place] [address] Feb, [facility] [address] [id number] [address] [place] [address], [place] [address] Feb, [facility] [address] [id number] [address] [place] [address], [place] [address] Jan, [facility] [address] [id number] [address] [place] [address], [place] [address] Jan, [facility] [address] [id number] [address] [place] [address], [place] [address] Jan, [facility] [address] [id number] [address] [place] [address], [place] [address] Jan, [facility] [address] [id number] [address] [place] [address], [place] [address] 14 Dec, 2012 [facility] [address] [id number] [address] [place] [address], [place] [address] 14 Dec, 2012 [facility] [address] [id number] [address] [place] [address], [place] [address] Dec, [facility] [address] [id number] [address] [place] [address], [place] [address] Nov, [facility] [address] [id number] [address] [place] [address], [place] [address] Oct, [facility] [address] [id number] [address] [place] [address], [place] [address] Sep, [facility] [address] [id number] [address] [place] [address], [place] [address] Sep, [facility] [address] [id number] [address] [place] [address], [place] [address] Sep, [facility] [address] [id number] [address] [place] [address], [place] [address] Jun, [facility] [address] [id number] [address] [place] [address], [place] [address] Jun, [facility] [address] [id number] [address] [place] [address], [place] [address] Apr, [facility] [address] [id number] [address] [place] [address], [place] [address] Mar, [facility] [address] [id number] [address] [place] [address], [place] [address] Feb, [facility] [address] [id number] [address] [place] [address] Feb, [facility] [address] [id number] [address] [place] [address], [place] [address] Dec, [facility] [address] [id number] [address] [place] [address], [place] [address] Dec, [facility] [address] [id number] [address] [place] [address], [place] [address] Dec, [facility] [address] [id number] [address] [place] [address], [place] [address] 25 Nov, 2011 [facility] [address] [id number] [address] [place] [address], [place] [address] 18 Nov, 2011 [facility] [address] [id number] [address] [place] [address], [place] [address] 30 Oct, 2011 [facility] [address] [id number] [address] [place] [address], [place] [address] 05 Sep, 2011 [facility] [address] [id number] [address] [place] [address], [place] [address] Aug, [facility] [address] [id number] [address] [place] [address], [place] [address] 22 May, 2011 [facility] [address] [id number] [address] [place] [address], [place] [address] May, [facility] [address] [id number] [address] [place] [address], [place] [address] May, [facility] [address] [id number] [address] [place] [address], [place] [address] May, [facility] [address] [id number] [address] [place] [address], [place] [address] May, [facility] [address] [id number] [address] [place] [address], [place] [address] 16 Apr, 2011 [facility] [address] [id number] [address] [place] [address], [place] [address] 14 Dec, 2010 [facility] [address] [id number] [address] [place] [address], [place] [address] 13 Nov, 2010 [facility] [address] [id number] [address] [place] [address], [place] [address] Feb, [facility] [address] [id number] [address] [place] [address], [place] [address] 30 Jan, 2009 [facility] [address] [id number] [address] [place] [address], [place] [address] Jan, [facility] [address] [id number] [address] [place] [address] Jan, [facility] [address] [id number] [address] [place] [address] Jan, IMMUNIZATIONS No Known Immunizations SOCIAL HISTORY [...]
--- OUTSIDE RECORDS SUMMARY | 2019-07-28 21:41 | XMS REPORT ---
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 Name Role Phone NIKKI SAENZ Unavailable PROBLEMS Type Condition ICD9-CM Code QAE39-EF Code Onset Dates Condition S tatus SNOMED Code Problem Other specified glaucoma, unspecified laterality H 40.89 Active 47494803 Problem Mood disorder F39 Active 647910 05 Problem Anxiety F41.9 Active 00900151 Problem Traumatic brain injury with loss of consciousness, sequela S06.9X9S Active 504129487 Problem Hemiplegia, unspecified etio logy, unspecified hemiplegia laterality, unspecified hemiplegia type G81.90 Active 03784139 Problem Other urinary incontinence N39.498 Act bertha 124449597 Problem Other generalized epilepsy, 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, 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 Active 98176207 Problem Wheel chair as ambulatory aid Z99.3 Active 638209812 Problem Seizure disorder G40.909 Active 128 906566 Problem Left hemiplegia G81.94 Active 2782 27369 ALLERGIES No Information ENCOUNTERS Encounter Location Date Diagnosis [place] [address] [address] Feb, [facility] [address] [address] Feb, [place] [address] [address] Feb, [facility] [address] [address] Feb, Mood disorder F39 ; Anxiety F41.9 ; Left hemiplegia G81.94 ; Seizure disorder G40.909 ; Traumatic brain injury with loss of consciousness, sequela S06.9X9S ; Other specified glaucoma, unspecified laterality H40.89 and Other urinary incontinence N39.498 [place] [address] [address] 15 Jan, [address] [facility] [address] [place] [address] Oct, Insect bite (nonvenomous) of right forea rm, initial encounter S50.861A [place] [address] [address] Sep, [place] [address] [address] Aug, Rash R21 [facility] [address] [place] [address] Aug, Ringworm B35.9 [place] [address] [address] July, [place] [address] [address] July, [place] [address] [address] Jan, [place] [address] [address] Jan, Anxiety F41.9 ; Wheel chair as ambulator y aid Z99.3 ; Left hemiplegia G81.94 and Encounter for immunization Z23 [place] [address] [address] Jan, [facility] [address] [id number] [place] [id number] Oct, Dental examination Z01.20 [place] [address] [address] Aug, Medicare annual wellness visit, initial Z00.00 ; Traumatic brain injury with loss of consciousness, sequela S06.9X9S ; Anxiety F41.9 ; Mood disorder F39 ; Other specified glaucoma, unspecified laterality H40.89 ; Hemiplegia, unspecified etiology, unspecified hemiplegia laterality, unspecified hemiplegia type G81.90 ; Other generalized epilepsy, 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ble, 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 ; Left hemiplegia G81.94 and Encounter for immunization Z23 [place] [address] [address] July, Left hemiplegia G81.94 ; Lower extremity edema R60.0 ; Seizure disorder G40.909 and Wheel chair as ambulatory aid Z99.3 [place] [address] [address] Jan, [place] [address] [address] Dec, Dependent edema R60.9 and Hemiplegia, un specified etiology, unspecified hemiplegia laterality, unspecified hemiplegia type G81.90 [place] [address] [address] Aug, Lower extremity edema R60.0 [place] [address] [address] July, Wheel chair as ambulatory aid Z99.3 ; He miplegia, unspecified etiology, unspecified hemiplegia laterality, unspecified hemiplegia type G81.90 ; Spinal cord injury of thoracic region without bone injury, sequela S24.109S and Weakness of both lower limbs R29.898 [place] [address] [address] Jun, [place] [address] [id number] [id number] May, [place] [address] [place] [id number] [place] [id number] May, [place] [address] [address] Feb, [place] [address] [address] 30 Jan, 2016 [place] [address] [address] Jan, Traumatic brain injury, with loss of con sciousness of unspecified duration, sequela S06.9X9S ; Well adult health check Z00.00 and Other generalized epilepsy, 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ble, 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 [facility] [address] [place] [id number] [place] [address] Jan, [facility] [address] [place] [id number] [place] [address] 28 Nov, 2014 [facility] [address] [place] [address] [id number] [place] [address] 14 Jun, 2014 [facility] [address] [place] [id number] [place] [address] Jun, [facility] [address] [place] [id number] [place] [address] Apr, [facility] [address] [place] [address] [id number] [place] [address] Apr, [facility] [address] [place] [id number] [place] [address] Apr, [facility] [address] [place] [address] [id number] [place] [address] Apr, [facility] [address] [place] [id number] [place] [address] Apr, [facility] [address] [place] [address] [id number] [place] [address] Apr, [facility] [address] [place] [address] [id number] [place] [address] Apr, [facility] [address] [place] [id number] [place] [address] Mar, [facility] [address] [place] [id number] [place] [address] Mar, [facility] [address] [place] [id number] [place] [address] Feb, [facility] [address] [place] [id number] [place] [address] Feb, [facility] [address] [id number] [place] [address] Nov, 2013 [facility] [address] [facility] [id number] [place] [address] Nov, [facility] [address] [id number] [place] [address] Nov, [facility] [address] [id number] [place] [address] Nov, [facility] [address] [facility] [id number] [place] [address] Nov, [facility] [address] [facility] [id number] [place] [address] Nov, [facility] [address] [id number] [place] [address] Sep, [facility] [address] [id number] [place] [address] Sep, [facility] [address] [id number] [place] [address] Sep, [facility] [address] [id number] [place] [address] Sep, [facility] [address] [id number] [place] [address] Sep, [facility] [address] [id number] [place] [address] Sep, [facility] [address] [id number] [place] [address] Aug, [facility] [address] [facility] [id number] [place] [address] Aug, [facility] [address] [id number] [place] [address] July, [facility] [address] [id number] [place] [address] July, [facility] [address] [id number] [place] [address] July, [facility] [address] [facility] [id number] [place] [address] July, [facility] [address] [facility] [id number] [place] [address] Jun, [facility] [address] [id number] [place] [address] Jun, [facility] [address] [id number] [place] [address] Jun, [facility] [address] [facility] [id number] [place] [address] Jun, [facility] [address] [id number] [place] [address] May, [facility] [address] [id number] [place] [address] May, [facility] [address] [id number] [place] [address] Apr, [facility] [address] [id number] [place] [address] Apr, [facility] [address] [id number] [place] [address] Apr, [facility] [address] [id number] [place] [address] Apr, [facility] [address] [id number] [place] [address] Apr, [facility] [address] [id number] [place] [address] Mar, [facility] [address] [id number] [place] [address] Mar, [facility] [address] [id number] [place] [address] Mar, [facility] [address] [id number] [place] [address] Mar, [facility] [address] [id number] [place] [address] 05 Feb, 2013 [facility] [address] [id number] [place] [address] Feb, [facility] [address] [id number] [place] [address] Jan, [facility] [address] [id number] [place] [address] Jan, [facility] [address] [id number] [place] [address] Jan, [facility] [address] [id number] [place] [address] Jan, [facility] [address] [id number] [place] [address] Dec, [facility] [address] [id number] [place] [address] Dec, [facility] [address] [id number] [place] [address] Dec, [facility] [address] [id number] [place] [address] Nov, [facility] [address] [id number] [place] [address] Oct, [facility] [address] [id number] [place] [address] Sep, [facility] [address] [id number] [place] [address] Sep, [facility] [address] [id number] [place] [address] Sep, [facility] [address] [id number] [place] [address] Jun, [facility] [address] [id number] [place] [address] Jun, [facility] [address] [id number] [place] [address] Apr, [facility] [address] [id number] [place] [address] Mar, [facility] [address] [id number] [place] [address] Feb, [facility] [address] [id number] [place] [address] Feb, [facility] [address] [id number] [place] [address] Dec, [facility] [address] [id number] [place] [address] Dec, [facility] [address] [id number] [place] [address] Dec, [facility] [address] [id number] [place] [address] Nov, [facility] [address] [place] [id number] [place] [address] Nov, [facility] [address] [id number] [place] [address] Oct, [facility] [address] [place] [address] [id number] [place] [address] Sep, [facility] [address] [id number] [place] [address] Aug, [facility] [address] [id number] [place] [address] May, [facility] [address] [id number] [place] [address] May, [facility] [address] [id number] [place] [address] May, [facility] [address] [id number] [place] [address] May, [facility] [address] [id number] [place] [address] May, [facility] [address] [id number] [place] [address] 16 Apr, 2011 [facility] [address] [id number] [place] [address] 14 Dec, 2010 [facility] [address] [id number] [place] [address] 13 Nov, 2010 [facility] [address] [id number] [place] [address] Feb, [facility] [address] [id number] [place] [address] Jan, [facility] [address] [id number] [place] [address] Jan, [facility] [address] [id number] [place] [address] Jan, [facility] [address] [id number] [place] [address] Jan, IMMUNIZATIONS No Known Immunizations SOCIAL HISTORY Never Assessed REASON FOR VISIT PLAN OF CARE VITAL SIGNS MEDICATIONS Unknown Medications RESULTS No Results PROCEDURES Procedure Date Ordered Result Body Site QUANTITATIVE ASSAY, DRUG August 10, 2013 INSTRUCTIONS MEDICATIONS ADMINISTERED No Known Medications MEDICAL [...]
--- OUTSIDE RECORDS SUMMARY | 2019-07-28 21:41 | XMS REPORT ---
Author Author Bradley SAENZ [facility] Address [address] [place] [address] Care Team Providers Care Gis Consultant Name Role Phone NIKKI SAENZ Unavailable PROBLEMS Type Condition ICD9-CM Code BLN00-FF Code Onset Dates Condition S tatus SNOMED Code Problem Other specified glaucoma, unspecified laterality H 40.89 Active 07720432 Problem Mood disorder F39 Active 646088 05 Problem Anxiety F41.9 Active 64512056 Problem Traumatic brain injury with loss of consciousness, sequela S06.9X9S Active 791024188 Problem Hemiplegia, unspecified etio logy, unspecified hemiplegia laterality, unspecified hemiplegia type G81.90 Active 78152977 Problem Other urinary incontinence N39.498 Act bertha 644440162 Problem Other generalized epilepsy, 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, 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 Active 30382219 Problem Wheel chair as ambulatory aid Z99.3 Active 652521156 Problem Seizure disorder G40.909 Active 128 622346 Problem Left hemiplegia G81.94 Active 2782 27669 ALLERGIES No Information ENCOUNTERS Encounter Location Date [facility] [address] [address] May, [facility] [id number] [place] [address] Apr, Seizure disorder G40.909 [facility] [address] [id number] [place] [address] Apr, [facility] [id number] [place] [address] Feb, [facility] [address] [id number] [place] [address] Feb, [facility] [address] [id number] [place] [address] Feb, [facility] [address] [place] [address] Feb, Mood disorder F39 ; Anxiety F41.9 ; Left hemiplegia G81.94 ; Seizure disorder G40.909 ; Traumatic brain injury with loss of consciousness, sequela S06.9X9S ; Other specified glaucoma, unspecified laterality H40.89 and Other urinary incontinence N39.498 [place] [address] [address] Jan, [facility] [address] [place] [address] Oct, Insect bite (nonvenomous) of right forea , initial encounter S50.861A [place] [address] [address] Sep, [place] [address] [address] Aug, Rash R21 [facility] [address] [place] [address] Aug, Ringworm B35.9 [place] [address] [address] July, [place] [address] [address] July, [place] [address] [address] Jan, [place] [address] [address] Jan, Anxiety F41.9 ; Wheel chair as ambulator y aid Z99.3 ; Left hemiplegia G81.94 and Encounter for immunization Z23 [place] [address] [address] Jan, [facility] [address] [id number] [place] [id number] Oct, Dental examination Z01.20 [place] [address] [address] Aug, Medicare annual wellness visit, initial Z00.00 ; Traumatic brain injury with loss of consciousness, sequela S06.9X9S ; Anxiety F41.9 ; Mood disorder F39 ; Other specified glaucoma, unspecified laterality H40.89 ; Hemiplegia, unspecified etiology, unspecified hemiplegia laterality, unspecified hemiplegia type G81.90 ; Other generalized epilepsy, 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ble, 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 ; Left hemiplegia G81.94 and Encounter for immunization Z23 [place] [address] [address] July, Left hemiplegia G81.94 ; Lower extremity edema R60.0 ; Seizure disorder G40.909 and Wheel chair as ambulatory aid Z99.3 [place] [address] [address] Jan, [place] [address] [address] Dec, Dependent edema R60.9 and Hemiplegia, un specified etiology, unspecified hemiplegia laterality, unspecified hemiplegia type G81.90 [place] [address] [address] Aug, Lower extremity edema R60.0 [place] [address] [address] July, Wheel chair as ambulatory aid Z99.3 ; He miplegia, unspecified etiology, unspecified hemiplegia laterality, unspecified hemiplegia type G81.90 ; Spinal cord injury of thoracic region without bone injury, sequela S24.109S and Weakness of both lower limbs R29.898 [place] [address] [address] Jun, [place] [address] [id number] [id number] May, [place] [address] [place] [id number] [place] [id number] May, [place] [id number] [place] [address] 14 Feb, 2016 [facility] [address] [address] 30 Jan, 2016 [facility] [address] [address] 16 Jan, 2016 Traumatic brain injury, with loss of con sciousness of unspecified duration, sequela S06.9X9S ; Well adult health check Z00.00 and Other generalized epilepsy, 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ble, 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 [facility] [address] [address] 15 Jan, 2016 [facility] [address] [address] 28 Nov, 2014 [facility] [address] [address] 14 Jun, 2014 [facility] [address] [address] 13 Jun, 2014 [facility] [address] [address] Apr, [facility] [address] [address] Apr, [facility] [address] [address] 18 Apr, 2014 [facility] [address] [address] Apr, [facility] [address] [address] Apr, [facility] [address] [address] Apr, [facility] [address] [address] Apr, [facility] [address] [address] Mar, [facility] [address] [id number] [place] [address] Mar, [facility] [address] [id number] [place] [address] Feb, [facility] [address] [id number] [place] [address] Feb, [facility] [address] [id number] [place] [address] Nov, [facility] [address] [facility] [id number] [place] [address] Nov, [facility] [address] [id number] [place] [address] Nov, [facility] [address] [id number] [place] [address] Nov, [facility] [address] [id number] [place] [address] Nov, [facility] [address] [id number] [place] [address] Nov, [facility] [address] [id number] [place] [address] Sep, [facility] [address] [id number] [place] [address] Sep, [facility] [address] [id number] [place] [address] Sep, [facility] [address] [id number] [place] [address] Sep, [facility] [address] [id number] [place] [address] Sep, [facility] [address] [id number] [place] [address] Sep, [facility] [address] [id number] [place] [address] Aug, [facility] [address] [id number] [place] [address] Aug, [facility] [address] [facility] [id number] [place] [address] July, [facility] [address] [facility] [id number] [place] [address] July, [facility] [address] [id number] [place] [address] July, [facility] [address] [id number] [place] [address] July, [facility] [address] [facility] [id number] [place] [address] Jun, [facility] [address] [id number] [place] [address] Jun, [facility] [address] [id number] [place] [address] Jun, [facility] [address] [id number] [place] [address] Jun, [facility] [address] [id number] [place] [address] May, [facility] [address] [id number] [place] [address] May, [facility] [address] [id number] [place] [address] Apr, [facility] [address] [id number] [place] [address] Apr, [facility] [address] [facility] [id number] [place] [address] Apr, [facility] [address] [id number] [place] [address] Apr, [facility] [address] [id number] [place] [address] Apr, [facility] [address] [id number] [place] [address] Mar, [facility] [address] [id number] [place] [address] Mar, [facility] [address] [id number] [place] [address] Mar, [facility] [address] [id number] [place] [address] Mar, [facility] [address] [id number] [place] [address] Feb, [facility] [address] [id number] [place] [address] Feb, [facility] [address] [id number] [place] [address] Jan, [facility] [address] [id number] [place] [address] Jan, [facility] [id number] [place] [address] Jan, [facility] [address] [id number] [place] [address] Jan, [facility] [address] [id number] [place] [address] Dec, [facility] [address] [id number] [place] [address] Dec, [facility] [address] [id number] [place] [address] Dec, [facility] [address] [id number] [place] [address] Nov, [facility] [address] [id number] [place] [address] Oct, [facility] [id number] [place] [address] Sep, [facility] [address] [id number] [place] [address] Sep, [facility] [address] [id number] [place] [address] Sep, [facility] [address] [id number] [place] [address] Jun, [facility] [address] [id number] [place] [address] Jun, [facility] [address] [id number] [place] [address] Apr, [facility] [address] [id number] [place] [address] Mar, [facility] [address] [id number] [place] [address] Feb, [facility] [address] [id number] [place] [address] Feb, [facility] [address] [id number] [place] [address] Dec, [facility] [address] [id number] [place] [address] Dec, [facility] [address] [id number] [place] [address] Dec, [facility] [address] [id number] [place] [address] Nov, [facility] [address] [id number] [place] [address] Nov, [facility] [address] [id number] [place] [address] Oct, [facility] [address] [id number] [place] [address] Sep, [facility] [address] [id number] [place] [address] Aug, [facility] [address] [id number] [place] [address] May, [facility] [address] [id number] [place] [address] May, [facility] [id number] [place] [address] 21 May, 2011 [facility] [id number] [place] [address] May, [facility] [address] [address] 19 May, 2011 [facility] [address] [address] 16 Apr, 2011 [facility] [address] [address] 14 Dec, 2010 [facility] [address] [address] Nov, [facility] [address] [address] Feb, [facility] [address] [address] Jan, [facility] [address] [address] Jan, [facility] [address] [address] Jan, [facility] [address] [address] Jan, IMMUNIZATIONS No Known Immunizations SOCIAL HISTORY Never Assessed REASON FOR VISIT PLAN OF CARE VITAL SIGNS Temperature 97.3 degrees Fahrenheit 2013-05-18 Heart Rate 72 bpm 2013-05-18 Respiratory Rate 16 2013-05-18 Blood pressure systolic 124 mmHg 2013-05-18 Blood pressure diastolic 80 mmHg 2013-05-18 MEDICATIONS Unknown Medications RESULTS No Results PROCEDURES No Known [...]
--- OUTSIDE RECORDS SUMMARY | 2019-07-28 21:41 | XMS REPORT ---
Author Author Bradley SAENZ [facility] Address [address] [place] [address] Care Team Providers Care Anhydrous Ammonia Production Supervisor Name Role Phone NIKKI SAENZ Unavailable PROBLEMS Type Condition ICD9-CM Code UDK10-QF Code Onset Dates Condition S tatus SNOMED Code Problem Other specified glaucoma, unspecified laterality H 40.89 Active 16197131 Problem Mood disorder F39 Active 856538 05 Problem Anxiety F41.9 Active 55840005 Problem Traumatic brain injury with loss of consciousness, sequela S06.9X9S Active 901096747 Problem Hemiplegia, unspecified etio logy, unspecified hemiplegia laterality, unspecified hemiplegia type G81.90 Active 37248058 Problem Other urinary incontinence N39.498 Act bertha 823149730 Problem Other generalized epilepsy, 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 [address] [place] [address] May, [facility] [place] [id number] [place] [address] Apr, Seizure disorder G40.909 [facility] [place] [address] [id number] [place] [address] Apr, [facility] [place] [address] [id number] [place] [address] Feb, [facility] [place] [address] [id number] [place] [address] Feb, [facility] [place] [address] [id number] [place] [address] Feb, [facility] [address] [place] [address] Feb, Mood disorder F39 ; Anxiety F41.9 ; Left hemiplegia G81.94 ; Seizure disorder G40.909 ; Traumatic brain injury with loss of consciousness, sequela S06.9X9S ; Other specified glaucoma, unspecified laterality H40.89 and Other urinary incontinence N39.498 [place] [address] [address] Jan, [facility] [address] [place] [address] Oct, Insect bite (nonvenomous) of right forea , initial encounter S50.861A [place] [address] [address] Sep, [place] [address] [address] Aug, Rash R21 [facility] [address] [place] [address] Aug, Ringworm B35.9 [place] [address] [address] July, [place] [address] [address] July, [place] [address] [address] Jan, [place] [address] [address] Jan, Anxiety F41.9 ; Wheel chair as ambulator y aid Z99.3 ; Left hemiplegia G81.94 and Encounter for immunization Z23 [place] [address] [address] Jan, [facility] [address] [id number] [place] [id number] Oct, Dental examination Z01.20 [place] [address] [address] Aug, Medicare annual wellness visit, initial Z00.00 ; Traumatic brain injury with loss of consciousness, sequela S06.9X9S ; Anxiety F41.9 ; Mood disorder F39 ; Other specified glaucoma, unspecified laterality H40.89 ; Hemiplegia, unspecified etiology, unspecified hemiplegia laterality, unspecified hemiplegia type G81.90 ; Other generalized epilepsy, 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ble, 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 ; Left hemiplegia G81.94 and Encounter for immunization Z23 [place] [address] [address] July, Left hemiplegia G81.94 ; Lower extremity edema R60.0 ; Seizure disorder G40.909 and Wheel chair as ambulatory aid Z99.3 [place] [address] [address] Jan, [place] [address] [address] Dec, Dependent edema R60.9 and Hemiplegia, un specified etiology, unspecified hemiplegia laterality, unspecified hemiplegia type G81.90 [place] [address] [address] Aug, Lower extremity edema R60.0 [place] [address] [address] July, Wheel chair as ambulatory aid Z99.3 ; He miplegia, unspecified etiology, unspecified hemiplegia laterality, unspecified hemiplegia type G81.90 ; Spinal cord injury of thoracic region without bone injury, sequela S24.109S and Weakness of both lower limbs R29.898 [place] [address] [address] Jun, [place] [address] [place] [id number] [place] [id number] May, [place] [address] [place] [id number] [place] [id number] May, [place] [id number] [place] [address] 14 Feb, 2016 [facility] [address] [address] 30 Jan, 2016 [facility] [address] [address] 16 Jan, 2016 Traumatic brain injury, with loss of con sciousness of unspecified duration, sequela S06.9X9S ; Well adult health check Z00.00 and Other generalized epilepsy, 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ble, 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 [facility] [address] [address] 15 Jan, 2016 [facility] [address] [address] 28 Nov, 2014 [facility] [address] [address] 14 Jun, 2014 [facility] [address] [address] 13 Jun, 2014 [facility] [address] [address] Apr, [facility] [address] [address] Apr, [facility] [address] [address] 18 Apr, 2014 [facility] [address] [address] Apr, [facility] [address] [address] Apr, [facility] [address] [address] Apr, [facility] [address] [address] Apr, [facility] [address] [address] Mar, [facility] [address] [id number] [place] [address] Mar, [facility] [address] [id number] [place] [address] Feb, [facility] [address] [id number] [place] [address] Feb, [facility] [address] [id number] [place] [address] Nov, [facility] [address] [facility] [id number] [place] [address] Nov, [facility] [address] [id number] [place] [address] Nov, [facility] [address] [id number] [place] [address] Nov, [facility] [address] [id number] [place] [address] Nov, [facility] [address] [id number] [place] [address] Nov, [facility] [address] [id number] [place] [address] Sep, [facility] [address] [id number] [place] [address] Sep, [facility] [address] [id number] [place] [address] Sep, [facility] [address] [id number] [place] [address] Sep, [facility] [address] [id number] [place] [address] Sep, [facility] [address] [id number] [place] [address] Sep, [facility] [address] [id number] [place] [address] Aug, [facility] [address] [id number] [place] [address] Aug, [facility] [address] [facility] [id number] [place] [address] July, [facility] [address] [facility] [id number] [place] [address] July, [facility] [address] [id number] [place] [address] July, [facility] [address] [id number] [place] [address] July, [facility] [address] [facility] [id number] [place] [address] Jun, [facility] [address] [id number] [place] [address] Jun, [facility] [address] [id number] [place] [address] Jun, [facility] [address] [id number] [place] [address] Jun, [facility] [address] [id number] [place] [address] May, [facility] [address] [id number] [place] [address] May, [facility] [address] [id number] [place] [address] Apr, [facility] [address] [id number] [place] [address] Apr, [facility] [address] [facility] [id number] [place] [address] Apr, [facility] [address] [id number] [place] [address] Apr, [facility] [address] [id number] [place] [address] Apr, [facility] [address] [id number] [place] [address] Mar, [facility] [address] [id number] [place] [address] Mar, [facility] [address] [id number] [place] [address] Mar, [facility] [address] [id number] [place] [address] Mar, [facility] [address] [id number] [place] [address] Feb, [facility] [address] [id number] [place] [address] Feb, [facility] [address] [id number] [place] [address] Jan, [facility] [address] [id number] [place] [address] Jan, [facility] [id number] [place] [address] Jan, [facility] [address] [id number] [place] [address] Jan, [facility] [address] [id number] [place] [address] Dec, [facility] [address] [id number] [place] [address] Dec, [facility] [address] [id number] [place] [address] Dec, [facility] [address] [id number] [place] [address] Nov, [facility] [address] [id number] [place] [address] Oct, [facility] [id number] [place] [address] Sep, [facility] [address] [id number] [place] [address] Sep, [facility] [address] [id number] [place] [address] Sep, [facility] [address] [id number] [place] [address] Jun, [facility] [address] [id number] [place] [address] Jun, [facility] [address] [id number] [place] [address] Apr, [facility] [address] [id number] [place] [address] Mar, [facility] [address] [id number] [place] [address] Feb, [facility] [address] [id number] [place] [address] Feb, [facility] [address] [id number] [place] [address] Dec, [facility] [address] [id number] [place] [address] Dec, [facility] [address] [id number] [place] [address] Dec, [facility] [address] [id number] [place] [address] Nov, [facility] [address] [id number] [place] [address] Nov, [facility] [address] [id number] [place] [address] Oct, [facility] [address] [id number] [place] [address] Sep, [facility] [address] [id number] [place] [address] Aug, [facility] [address] [id number] [place] [address] May, [facility] [address] [id number] [place] [address] May, [facility] [id number] [place] [address] 21 May, 2011 [facility] [place] [id number] [place] [address] May, [facility] [place] [address] [address] 19 May, 2011 [facility] [place] [address] [address] 16 Apr, 2011 [facility] [place] [address] [address] 14 Dec, 2010 [facility] [place] [address] [address] Nov, [facility] [place] [address] [address] Feb, [facility] [place] [address] [address] Jan, [facility] [place] [address] [address] 24 Jan, 2009 [facility] [place] [address] [address] Jan, [facility] [place] [address] [address] Jan, IMMUNIZATIONS No Known Immunizations SOCIAL HISTORY [...]
--- OUTSIDE RECORDS SUMMARY | 2019-07-28 21:41 | XMS REPORT ---
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 Name Role Phone NIKKI SAENZ Unavailable PROBLEMS Type Condition ICD9-CM Code HOM08-UY Code Onset Dates Condition S tatus SNOMED Code Problem Other specified glaucoma, unspecified laterality H 40.89 Active 91057539 Problem Mood disorder F39 Active 568624 05 Problem Anxiety F41.9 Active 17727347 Problem Traumatic brain injury with loss of consciousness, sequela S06.9X9S Active 494520163 Problem Hemiplegia, unspecified etio logy, unspecified hemiplegia laterality, unspecified hemiplegia type G81.90 Active 12671109 Problem Other urinary incontinence N39.498 Act bertha 214359644 Problem Other generalized epilepsy, 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, 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 Active 74339858 Problem Wheel chair as ambulatory aid Z99.3 Active 012773507 Problem Seizure disorder G40.909 Active 128 792811 Problem Left hemiplegia G81.94 Active 2782 82213 ALLERGIES No Information ENCOUNTERS Encounter Location Date Diagnosis [place] [address] [address] Feb, [place] [address] [address] Feb, [place] [address] [address] Feb, [employer] [address] [place] [address] Feb, Mood disorder F39 ; Anxiety F41.9 ; Left hemiplegia G81.94 ; Seizure disorder G40.909 ; Traumatic brain injury with loss of consciousness, sequela S06.9X9S ; Other specified glaucoma, unspecified laterality H40.89 and Other urinary incontinence N39.498 [place] [address] [address] 15 Jan, 2019 [employer] [address] [place] [address] Oct, Insect bite (nonvenomous) of right forea rm, initial encounter S50.861A [place] [address] [address] Sep, [place] [address] [address] Aug, Rash R21 [employer] [address] [place] [address] Aug, Ringworm B35.9 [place] [address] [address] July, [place] [address] [address] July, [place] [address] [address] Jan, [place] [address] [address] Jan, Anxiety F41.9 ; Wheel chair as ambulator y aid Z99.3 ; Left hemiplegia G81.94 and Encounter for immunization Z23 [place] [address] [address] Jan, [facility] [address] [id number] [place] [id number] Oct, Dental examination Z01.20 [place] [address] [address] Aug, Medicare annual wellness visit, initial Z00.00 ; Traumatic brain injury with loss of consciousness, sequela S06.9X9S ; Anxiety F41.9 ; Mood disorder F39 ; Other specified glaucoma, unspecified laterality H40.89 ; Hemiplegia, unspecified etiology, unspecified hemiplegia laterality, unspecified hemiplegia type G81.90 ; Other generalized epilepsy, 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ble, 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 ; Left hemiplegia G81.94 and Encounter for immunization Z23 [place] [address] [address] July, Left hemiplegia G81.94 ; Lower extremity edema R60.0 ; Seizure disorder G40.909 and Wheel chair as ambulatory aid Z99.3 [place] [address] [address] Jan, [place] [address] [address] Dec, Dependent edema R60.9 and Hemiplegia, un specified etiology, unspecified hemiplegia laterality, unspecified hemiplegia type G81.90 [place] [address] [address] Aug, Lower extremity edema R60.0 [place] [address] [address] July, Wheel chair as ambulatory aid Z99.3 ; He miplegia, unspecified etiology, unspecified hemiplegia laterality, unspecified hemiplegia type G81.90 ; Spinal cord injury of thoracic region without bone injury, sequela S24.109S and Weakness of both lower limbs R29.898 [place] [address] [address] Jun, [place] [id number] [place] [id number] May, [place] [address] [id number] [place] [id number] May, [place] [address] [address] Feb, [place] [address] [address] 30 Jan, 2016 [place] [address] [address] Jan, Traumatic brain injury, with loss of con sciousness of unspecified duration, sequela S06.9X9S ; Well adult health check Z00.00 and Other generalized epilepsy, 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ble, 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 [facility] [address] [place] [id number] [place] [address] Jan, [facility] [address] [place] [id number] [place] [address] 28 Nov, 2014 [facility] [address] [place] [id number] [place] [address] 14 Jun, 2014 [facility] [address] [place] [id number] [place] [address] Jun, [facility] [address] [place] [id number] [place] [address] Apr, [facility] [address] [place] [id number] [place] [address] Apr, [facility] [address] [place] [id number] [place] [address] Apr, [facility] [address] [place] [id number] [place] [address] Apr, [facility] [address] [place] [id number] [place] [address] Apr, [facility] [address] [place] [id number] [place] [address] Apr, [facility] [address] [place] [id number] [place] [address] Apr, [facility] [address] [place] [id number] [place] [address] Mar, [facility] [address] [place] [id number] [place] [address] Mar, [facility] [address] [place] [id number] [place] [address] Feb, [facility] [address] [place] [id number] [place] [address] Feb, [facility] [address] [id number] [place] [address] Nov, 2013 [facility] [address] [facility] [id number] [place] [address] Nov, [facility] [address] [id number] [place] [address] Nov, [facility] [address] [id number] [place] [address] Nov, [facility] [address] [facility] [id number] [place] [address] Nov, [facility] [address] [facility] [id number] [place] [address] Nov, [facility] [address] [id number] [place] [address] Sep, [facility] [address] [id number] [place] [address] Sep, [facility] [address] [id number] [place] [address] Sep, [facility] [address] [id number] [place] [address] Sep, [facility] [address] [id number] [place] [address] Sep, [facility] [address] [id number] [place] [address] Sep, [facility] [address] [id number] [place] [address] Aug, [facility] [address] [facility] [id number] [place] [address] Aug, [facility] [address] [id number] [place] [address] July, [facility] [address] [id number] [place] [address] July, [facility] [address] [id number] [place] [address] July, [facility] [address] [facility] [id number] [place] [address] July, [facility] [address] [facility] [id number] [facility] [place] [address] Jun, [facility] [address] [id number] [place] [address] Jun, [facility] [address] [id number] [place] [address] Jun, [facility] [address] [facility] [id number] [place] [address] Jun, [facility] [address] [id number] [place] [address] May, [facility] [address] [id number] [place] [address] May, [facility] [address] [id number] [place] [address] Apr, [facility] [address] [id number] [place] [address] Apr, [facility] [address] [id number] [place] [address] Apr, [facility] [address] [id number] [place] [address] Apr, [facility] [address] [id number] [place] [address] Apr, [facility] [address] [id number] [place] [address] Mar, [facility] [address] [id number] [place] [address] Mar, [facility] [address] [id number] [place] [address] Mar, [facility] [address] [id number] [place] [address] Mar, [facility] [address] [id number] [place] [address] 05 Feb, 2013 [facility] [address] [id number] [place] [address] Feb, [facility] [address] [id number] [place] [address] Jan, [facility] [address] [id number] [place] [address] Jan, [facility] [address] [id number] [place] [address] Jan, [facility] [address] [id number] [place] [address] Jan, [facility] [address] [id number] [place] [address] Dec, [facility] [address] [id number] [place] [address] Dec, [facility] [address] [id number] [place] [address] Dec, [facility] [address] [id number] [place] [address] Nov, [facility] [address] [id number] [place] [address] Oct, [facility] [address] [id number] [place] [address] Sep, [facility] [address] [id number] [place] [address] Sep, [facility] [address] [id number] [place] [address] Sep, [facility] [address] [id number] [place] [address] Jun, [facility] [address] [id number] [place] [address] Jun, [facility] [address] [id number] [place] [address] Apr, [facility] [address] [id number] [place] [address] Mar, [facility] [address] [id number] [place] [address] Feb, [facility] [address] [id number] [place] [address] Feb, [facility] [address] [id number] [place] [address] Dec, [facility] [address] [id number] [place] [address] Dec, [facility] [address] [id number] [place] [address] Dec, [facility] [address] [id number] [place] [address] Nov, [facility] [address] [place] [id number] [place] [address] Nov, [facility] [address] [id number] [place] [address] Oct, [facility] [address] [place] [id number] [place] [address] Sep, [facility] [address] [id number] [place] [address] Aug, [facility] [address] [id number] [place] [address] May, [facility] [address] [id number] [place] [address] May, [facility] [address] [id number] [place] [address] May, [facility] [address] [id number] [place] [address] May, [facility] [address] [id number] [place] [address] May, [facility] [address] [id number] [place] [address] 16 Apr, 2011 [facility] [address] [id number] [place] [address] 14 Dec, 2010 [facility] [address] [id number] [place] [address] 13 Nov, 2010 [facility] [address] [id number] [place] [address] Feb, [facility] [address] [id number] [place] [address] Jan, [facility] [address] [id number] [place] [address] Jan, [facility] [address] [id number] [place] [address] Jan, [facility] [address] [id number] [place] [address] Jan, IMMUNIZATIONS No Known Immunizations SOCIAL HISTORY [...]
--- OUTSIDE RECORDS SUMMARY | 2019-07-28 21:42 | XMS REPORT ---
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 Name Role Phone KENYETTA FU Unavailable PROBLEMS Type Condition ICD9-CM Code AGO92-AC Code Onset Dates Condition S tatus SNOMED Code Problem Other specified glaucoma, unspecified laterality H 40.89 Active 78845291 Problem Mood disorder F39 Active 923049 05 Problem Anxiety F41.9 Active 87652806 Problem Traumatic brain injury with loss of consciousness, sequela S06.9X9S Active 711859568 Problem Hemiplegia, unspecified etio logy, unspecified hemiplegia laterality, unspecified hemiplegia type G81.90 Active 23520760 Problem Other urinary incontinence N39.498 Act bertha 181926093 Problem Other generalized epilepsy, 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, 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 Active 31153625 Problem Wheel chair as ambulatory aid Z99.3 Active 299521985 Problem Seizure disorder G40.909 Active 128 204468 Problem Left hemiplegia G81.94 Active 2782 01419 ALLERGIES No Information ENCOUNTERS Encounter Location Date Diagnosis [place] [address] [address] Feb, [facility] [address] [address] Feb, [place] [address] [address] Feb, [facility] [address] [address] Feb, Mood disorder F39 ; Anxiety F41.9 ; Left hemiplegia G81.94 ; Seizure disorder G40.909 ; Traumatic brain injury with loss of consciousness, sequela S06.9X9S ; Other specified glaucoma, unspecified laterality H40.89 and Other urinary incontinence N39.498 [place] [address] [address] 15 Jan, 2019 [facility] [address] [place] [address] Oct, Insect bite (nonvenomous) of right forea rm, initial encounter S50.861A [place] [address] [address] Sep, [place] [address] [address] Aug, Rash R21 [facility] [address] [place] [address] Aug, Ringworm B35.9 [place] [address] [address] July, [place] [address] [address] July, [place] [address] [address] Jan, [place] [address] [address] Jan, Anxiety F41.9 ; Wheel chair as ambulator y aid Z99.3 ; Left hemiplegia G81.94 and Encounter for immunization Z23 [place] [address] [address] Jan, [facility] [address] [id number] [place] [id number] Oct, Dental examination Z01.20 [place] [address] [address] Aug, Medicare annual wellness visit, initial Z00.00 ; Traumatic brain injury with loss of consciousness, sequela S06.9X9S ; Anxiety F41.9 ; Mood disorder F39 ; Other specified glaucoma, unspecified laterality H40.89 ; Hemiplegia, unspecified etiology, unspecified hemiplegia laterality, unspecified hemiplegia type G81.90 ; Other generalized epilepsy, 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ble, 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 ; Left hemiplegia G81.94 and Encounter for immunization Z23 [place] [address] [address] July, Left hemiplegia G81.94 ; Lower extremity edema R60.0 ; Seizure disorder G40.909 and Wheel chair as ambulatory aid Z99.3 [place] [address] [address] Jan, [place] [address] [address] Dec, Dependent edema R60.9 and Hemiplegia, un specified etiology, unspecified hemiplegia laterality, unspecified hemiplegia type G81.90 [place] [address] [address] Aug, Lower extremity edema R60.0 [place] [address] [address] July, Wheel chair as ambulatory aid Z99.3 ; He miplegia, unspecified etiology, unspecified hemiplegia laterality, unspecified hemiplegia type G81.90 ; Spinal cord injury of thoracic region without bone injury, sequela S24.109S and Weakness of both lower limbs R29.898 [place] [address] [address] Jun, [place] [address] [id number] [place] [id number] May, [place] [address] [id number] [place] [id number] May, [place] [address] [address] Feb, [place] [address] [address] 30 Jan, 2016 [place] [address] [address] Jan, Traumatic brain injury, with loss of con sciousness of unspecified duration, sequela S06.9X9S ; Well adult health check Z00.00 and Other generalized epilepsy, 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ble, 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 [facility] [id number] [place] [address] Jan, [facility] [id number] [place] [address] 28 Nov, 2014 [facility] [id number] [place] [address] 14 Jun, 2014 [facility] [id number] [place] [address] Jun, [facility] [id number] [place] [address] Apr, [facility] [id number] [place] [address] Apr, [facility] [id number] [place] [address] Apr, [facility] [id number] [place] [address] Apr, [facility] [id number] [place] [address] Apr, [facility] [id number] [place] [address] Apr, [facility] [id number] [place] [address] Apr, [facility] [id number] [place] [address] Mar, [facility] [address] [place] [id number] [place] [address] Mar, [facility] [id number] [place] [address] Feb, [facility] [id number] [place] [address] Feb, [facility] [address] [id number] [place] [address] Nov, 2013 [facility] [address] [facility] [id number] [place] [address] Nov, [facility] [address] [id number] [place] [address] Nov, [facility] [address] [id number] [place] [address] Nov, [facility] [address] [facility] [id number] [place] [address] Nov, [facility] [address] [facility] [id number] [place] [address] Nov, [facility] [address] [id number] [place] [address] Sep, [facility] [address] [id number] [place] [address] Sep, [facility] [address] [id number] [place] [address] Sep, [facility] [address] [id number] [place] [address] Sep, [facility] [address] [id number] [place] [address] Sep, [facility] [address] [id number] [place] [address] Sep, [facility] [address] [id number] [place] [address] Aug, [facility] [address] [facility] [id number] [place] [address] Aug, [facility] [address] [id number] [place] [address] July, [facility] [address] [id number] [place] [address] July, [facility] [address] [id number] [place] [address] July, [facility] [address] [facility] [id number] [place] [address] July, [facility] [address] [facility] [id number] [facility] [place] [address] Jun, [facility] [address] [id number] [place] [address] Jun, [facility] [address] [id number] [place] [address] Jun, [facility] [address] [facility] [id number] [place] [address] Jun, [facility] [address] [id number] [place] [address] May, [facility] [address] [id number] [place] [address] May, [facility] [address] [id number] [place] [address] Apr, [facility] [address] [id number] [place] [address] Apr, [facility] [address] [id number] [place] [address] Apr, [facility] [address] [id number] [place] [address] Apr, [facility] [address] [id number] [place] [address] Apr, [facility] [address] [id number] [place] [address] Mar, [facility] [address] [id number] [place] [address] Mar, [facility] [address] [id number] [place] [address] Mar, [facility] [address] [id number] [place] [address] Mar, [facility] [address] [id number] [place] [address] 05 Feb, 2013 [facility] [address] [id number] [place] [address] Feb, [facility] [address] [id number] [place] [address] Jan, [facility] [address] [id number] [place] [address] Jan, [facility] [address] [id number] [place] [address] Jan, [facility] [address] [id number] [place] [address] Jan, [facility] [address] [id number] [place] [address] Dec, [facility] [address] [id number] [place] [address] Dec, [facility] [address] [id number] [place] [address] Dec, [facility] [address] [id number] [place] [address] Nov, [facility] [address] [id number] [place] [address] Oct, [facility] [address] [id number] [place] [address] Sep, [facility] [address] [id number] [place] [address] Sep, [facility] [address] [id number] [place] [address] Sep, [facility] [address] [id number] [place] [address] Jun, [facility] [address] [id number] [place] [address] Jun, [facility] [address] [id number] [place] [address] Apr, [facility] [address] [id number] [place] [address] Mar, [facility] [address] [id number] [place] [address] Feb, [facility] [address] [id number] [place] [address] Feb, [facility] [address] [id number] [place] [address] Dec, [facility] [address] [id number] [place] [address] Dec, [facility] [address] [id number] [place] [address] Dec, [facility] [address] [id number] [place] [address] Nov, [facility] [address] [place] [id number] [place] [address] Nov, [facility] [address] [id number] [place] [address] Oct, [facility] [id number] [place] [address] Sep, [facility] [address] [id number] [place] [address] Aug, [facility] [address] [id number] [place] [address] May, [facility] [address] [id number] [place] [address] May, [facility] [address] [id number] [place] [address] May, [facility] [address] [id number] [place] [address] May, [facility] [address] [id number] [place] [address] May, [facility] [address] [id number] [place] [address] 16 Apr, 2011 [facility] [address] [id number] [place] [address] 14 Dec, 2010 [facility] [address] [id number] [place] [address] 13 Nov, 2010 [facility] [address] [id number] [place] [address] Feb, [facility] [address] [id number] [place] [address] Jan, [facility] [address] [id number] [place] [address] Jan, [facility] [address] [id number] [place] [address] Jan, [facility] [address] [id number] [place] [address] Jan, IMMUNIZATIONS No Known Immunizations SOCIAL HISTORY [...]
--- OUTSIDE RECORDS SUMMARY | 2019-07-28 21:42 | XMS REPORT ---
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 Name Role Phone NIKKI SAENZ Unavailable PROBLEMS Type Condition ICD9-CM Code GMI63-NZ Code Onset Dates Condition S tatus SNOMED Code Problem Mood disorder F39 Active 463492 05 Problem Anxiety F41.9 Active 90179508 Problem Hemiplegia, unspecified etio logy, unspecified hemiplegia laterality, unspecified hemiplegia type G81.90 Active 47561485 Problem Left hemiplegia G81.94 Active 2782 36951 Problem Traumatic brain injury with loss of consciousness, sequela S06.9X9S Active 222598720 Problem Other specified glaucoma, unspecified laterality H 40.89 Active 84390267 Problem Other generalized epilepsy, 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, 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 Active 79365912 Problem Wheel chair as ambulatory aid Z99.3 Active 868219549 Problem Seizure disorder G40.909 Active 128 585478 ALLERGIES No Information ENCOUNTERS Encounter Location Date Diagnosis [facility] [address] [address] Oct, Insect bite (nonvenomous) of right forea rm, initial encounter S50.861A [place] [address] [address] [facility] [id number] [address] [place] [address] Sep, [place] [address] [facility] [id number] [address] [place] [address] Aug, Rash R21 [facility] [address] [place] [address] Aug, Ringworm B35.9 [place] [address] [address] [facility] [id number] [address] [place] [address] July, [place] [address] [address] [facility] [id number] [address] [place] [address] July, [facility] [address] [place] [id number] [address] [place] [address] Jan, [facility] [address] [place] [id number] [address] [place] [address] Jan, Anxiety F41.9 ; Wheel chair as ambulatory aid Z99.3 ; Left hemiplegia G81.94 and Encounter for immunization Z23 [facility] [address] [place] [id number] [address] [place] [address] Jan, [facility] [address] [facility] [id number] [address] [place] [id number] Oct, Dental examination Z01.20 [place] [address] [address] [place] [id number] [address] [place] [address] Aug, Medicare annual wellness vis it, initial Z00.00 ; Traumatic brain injury with loss of consciousness, sequela S06.9X9S ; Anxiety F41.9 ; Mood disorder F39 ; Other specified glaucoma, unspecified laterality H40.89 ; Hemiplegia, unspecified etiology, unspecified hemiplegia laterality, unspecified hemiplegia type G81.90 ; Other generalized epilepsy, 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ble, 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 ; Left hemiplegia G81.94 and Encounter for immunization Z23 [place] [address] [place] [id number] [address] [place] [address] July, Left hemiplegia G81.94 ; Low er extremity edema R60.0 ; Seizure disorder G40.909 and Wheel chair as ambulatory aid Z99.3 [facility] [address] [place] [id number] [address] [place] [address] Jan, [place] [address] [address] [place] [id number] [place] [address] Dec, Dependent edema R60.9 and He miplegia, unspecified etiology, unspecified hemiplegia laterality, unspecified hemiplegia type G81.90 [place] [address] [place] [id number] [address] [place] [address] Aug, Lower extremity edema R60.0 [facility] [address] [id number] [address] [place] [address] July, Wheel chair as ambulatory ai d Z99.3 ; Hemiplegia, unspecified etiology, unspecified hemiplegia laterality, unspecified hemiplegia type G81.90 ; Spinal cord injury of thoracic region without bone injury, sequela S24.109S and Weakness of both lower limbs R29.898 [facility] [address] [id number] [address] [place] [address] Jun, [facility] [address] [id number] [place] [id number] May, [facility] [address] [id number] [place] [id number] May, [facility] [address] [facility] [id number] [address] [place] [address] Feb, [facility] [address] [facility] [id number] [address] [place] [address] Jan, [facility] [address] [facility] [id number] [address] [place] [address] Jan, Traumatic brain injury, with loss of consciousness of unspecified duration, sequela S06.9X9S ; Well adult health check Z00.00 and Other generalized epilepsy, 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ble, 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 [facility] [address] [id number] [address] [place] [address] Jan, [facility] [address] [id number] [address] [place] [address] Nov, [facility] [address] [facility] [id number] [address] [place] [address] Jun, [facility] [address] [facility] [id number] [address] [place] [address] 13 Jun, 2014 [facility] [address] [facility] [id number] [address] [place] [address] Apr, 2014 [facility] [address] [id number] [address] [place] [address], [place] [address] Apr, 2014 [facility] [address] [id number] [address] [place] [address], [place] [address] 18 Apr, 2014 [facility] [address] [id number] [address] [place] [address], [place] [address] Apr, 2014 [facility] [address] [id number] [address] [place] [address], [place] [address] Apr, 2014 [facility] [address] [id number] [address] [place] [address], [place] [address] Apr, 2014 [facility] [address] [id number] [address] [place] [address], [place] [address] Apr, [facility] [address] [id number] [address] [place] [address], [place] [address] Mar, [facility] [address] [id number] [address] [place] [address], [place] [address] Mar, [facility] [address] [id number] [address] [place] [address], [place] [address] Feb, [facility] [address] [id number] [address] [place] [address], [place] [address] Feb, [facility] [address] [id number] [address] [place] [address], [place] [address] 26 Nov, 2013 [facility] [address] [id number] [address] [place] [address], [place] [address] 26 Nov, 2013 [facility] [address] [id number] [address] [place] [address], [place] [address] 10 Nov, 2013 [facility] [address] [id number] [address] [place] [address], [place] [address] 10 Nov, 2013 [facility] [address] [id number] [address] [place] [address], [place] [address] 10 Nov, 2013 [facility] [address] [id number] [facility] [place] [address] Nov, [facility] [address] [id number] [address] [place] [address], [place] [address] Sep, [facility] [address] [id number] [address] [place] [address], [place] [address] Sep, [facility] [address] [id number] [address] [place] [address], [place] [address] Sep, [facility] [address] [id number] [address] [place] [address], [place] [address] Sep, [facility] [address] [id number] [address] [place] [address], [place] [address] Sep, [facility] [address] [id number] [address] [place] [address], [place] [address] Sep, [facility] [address] [id number] [address] [place] [address], [place] [address] Aug, [facility] [address] [id number] [address] [place] [address], [place] [address] Aug, [facility] [address] [id number] [address] [place] [address], [place] [address] July, [facility] [address] [id number] [address] [place] [address], [place] [address] July, [facility] [address] [id number] [address] [place] [address], [place] [address] July, [facility] [address] [id number] [address] [place] [address], [place] [address] July, [facility] [address] [id number] [address] [place] [address], [place] [address] Jun, [facility] [address] [id number] [address] [place] [address], [place] [address] Jun, [facility] [address] [id number] [address] [place] [address], [place] [address] Jun, [facility] [address] [id number] [address] [place] [address], [place] [address] Jun, [facility] [address] [id number] [address] [place] [address], [place] [address] May, [facility] [address] [id number] [address] [place] [address], [place] [address] May, [facility] [address] [id number] [address] [place] [address], [place] [address] Apr, [facility] [address] [id number] [address] [place] [address], [place] [address] Apr, [facility] [address] [id number] [address] [place] [address], [place] [address] Apr, [facility] [address] [id number] [address] [place] [address], [place] [address] Apr, [facility] [address] [id number] [address] [place] [address], [place] [address] Apr, [facility] [address] [id number] [address] [place] [address], [place] [address] Mar, [facility] [address] [id number] [address] [place] [address], [place] [address] Mar, [facility] [address] [id number] [address] [place] [address], [place] [address] Mar, [facility] [address] [id number] [address] [place] [address], [place] [address] Mar, [facility] [address] [id number] [address] [place] [address], [place] [address] Feb, [facility] [address] [id number] [address] [place] [address], [place] [address] Feb, [facility] [address] [id number] [address] [place] [address], [place] [address] Jan, [facility] [address] [id number] [address] [place] [address], [place] [address] Jan, [facility] [address] [id number] [address] [place] [address], [place] [address] Jan, [facility] [address] [id number] [address] [place] [address], [place] [address] Jan, [facility] [address] [id number] [address] [place] [address], [place] [address] Dec, [facility] [address] [id number] [address] [place] [address], [place] [address] Dec, [facility] [address] [id number] [address] [place] [address], [place] [address] Dec, [facility] [address] [id number] [address] [place] [address], [place] [address] Nov, [facility] [address] [id number] [address] [place] [address], [place] [address] Oct, [facility] [address] [id number] [address] [place] [address], [place] [address] Sep, [facility] [address] [id number] [address] [place] [address], [place] [address] Sep, [facility] [address] [id number] [address] [place] [address], [place] [address] Sep, [facility] [address] [id number] [address] [place] [address], [place] [address] Jun, [facility] [address] [id number] [address] [place] [address], [place] [address] Jun, [facility] [address] [id number] [address] [place] [address], [place] [address] Apr, [facility] [address] [id number] [address] [place] [address], [place] [address] Mar, [facility] [address] [id number] [address] [place] [address], [place] [address] Feb, [facility] [address] [id number] [address] [place] [address], [place] [address] Feb, [facility] [address] [id number] [address] [place] [address], [place] [address] Dec, [facility] [address] [id number] [address] [place] [address], [place] [address] Dec, [facility] [address] [id number] [address] [place] [address], [place] [address] Dec, [facility] [address] [id number] [address] [place] [address], [place] [address] Nov, [facility] [address] [id number] [address] [place] [address], [place] [address] Nov, [facility] [address] [id number] [address] [place] [address], [place] [address] Oct, [facility] [address] [id number] [address] [place] [address], [place] [address] Sep, [facility] [address] [id number] [address] [place] [address], [place] [address] Aug, [facility] [address] [id number] [address] [place] [address], [place] [address] May, [facility] [address] [id number] [address] [place] [address], [place] [address] May, [facility] [address] [id number] [address] [place] [address], [place] [address] May, [facility] [address] [id number] [address] [place] [address], [place] [address] May, [facility] [address] [id number] [address] [place] [address], [place] [address] May, [facility] [address] [id number] [address] [place] [address], [place] [address] Apr, [facility] [address] [id number] [address] [place] [address] 14 Dec, 2010 [facility] [address] [facility] [id number] [address] [place] [address] 13 Nov, 2010 [facility] [address] [facility] [id number] [address] [place] [address] Feb, [facility] [address] [facility] [id number] [address] [place] [address] 30 Jan, 2009 [facility] [address] [facility] [id number] [address] [place] [address] 24 Jan, 2009 [facility] [address] [facility] [id number] [address] [place] [address] 16 Jan, 2009 [facility] [address] [facility] [id number] [address] [place] [address] 16 Jan, 2009 IMMUNIZATIONS No Known Immunizations SOCIAL HISTORY Never [...]
--- OUTSIDE RECORDS SUMMARY | 2019-07-28 21:42 | XMS REPORT ---
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 Coach Bus Driver Name Role Phone NIKKI SAENZ Unavailable PROBLEMS Type Condition ICD9-CM Code [id number] Code Onset Dates Condition S tatus SNOMED Code Problem Mood disorder F39 Active 988114 05 Problem Anxiety F41.9 Active 57085447 Problem Hemiplegia, unspecified etio logy, unspecified hemiplegia laterality, unspecified hemiplegia type G81.90 Active 11653995 Problem Left hemiplegia G81.94 Active 2782 09248 Problem Traumatic brain injury with loss of consciousness, sequela S06.9X9S Active 660610907 Problem Other specified glaucoma, unspecified laterality H 40.89 Active 15565950 Problem Other generalized epilepsy, 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, 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 Active 56456453 Problem Wheel chair as ambulatory aid Z99.3 Active 344196966 Problem Seizure disorder G40.909 Active 128 315242 ALLERGIES No Information ENCOUNTERS Encounter Location Date Diagnosis [place] [address] [address] [facility] [id number] [address] [place] [address] Sep, [place] [address] [address] [facility] [id number] [address] [place] [address] Aug, Rash R21 [employer] [address] [address] Aug, Ringworm B35.9 [facility] [address] [facility] [id number] [address] [place] [address] July, [place] [address] [address] [facility] [id number] [address] [place] [address] July, [place] [address] [address] [facility] [id number] [address] [place] [address] Jan, [facility] [address] [facility] [id number] [address] [place] [address] Jan, Anxiety F41.9 ; Wheel chair as ambulatory aid Z99.3 ; Left hemiplegia G81.94 and Encounter for immunization Z23 [facility] [address] [facility] [id number] [address] [place] [address] Jan, [facility] [address] [id number] [address] [place] [id number] Oct, Dental examination Z01.20 [facility] [address] [facility] [id number] [address] [place] [address] Aug, Medicare annual wellness vis it, initial Z00.00 ; Traumatic brain injury with loss of consciousness, sequela S06.9X9S ; Anxiety F41.9 ; Mood disorder F39 ; Other specified glaucoma, unspecified laterality H40.89 ; Hemiplegia, unspecified etiology, unspecified hemiplegia laterality, unspecified hemiplegia type G81.90 ; Other generalized epilepsy, 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ble, 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 ; Left hemiplegia G81.94 and Encounter for immunization Z23 [place] [address] [facility] [id number] [address] [place] [address] July, Left hemiplegia G81.94 ; Low er extremity edema R60.0 ; Seizure disorder G40.909 and Wheel chair as ambulatory aid Z99.3 [place] [address] [address] [facility] [id number] [address] [place] [address] Jan, [facility] [address] [place] [id number] [address] [place] [address] Dec, Dependent edema R60.9 and He miplegia, unspecified etiology, unspecified hemiplegia laterality, unspecified hemiplegia type G81.90 [place] [address] [facility] [id number] [address] [place] [phone] Aug, Lower extremity edema R60.0 [place] [address] [address] [facility] [id number] [address] [place] [address] July, Wheel chair as ambulatory ai d Z99.3 ; Hemiplegia, unspecified etiology, unspecified hemiplegia laterality, unspecified hemiplegia type G81.90 ; Spinal cord injury of thoracic region without bone injury, sequela S24.109S and Weakness of both lower limbs R29.898 [facility] [address] [facility] [id number] [address] [place] [phone] Jun, [facility] [address] [id number] [place] [id number] May, [facility] [address] [id number] [place] [id number] May, [facility] [address] [facility] [id number] [address] [place] [phone] Feb, [facility] [address] [facility] [id number] [address] [place] [address] Jan, [facility] [address] [facility] [id number] [address] [place] [address] Jan, Traumatic brain injury, with loss of consciousness of unspecified duration, sequela S06.9X9S ; Well adult health check Z00.00 and Other generalized epilepsy, 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ble, 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 [facility] [address] [facility] [id number] [address] [place] [address] Jan, [facility] [address] [facility] [id number] [address] [place] [address] Nov, [facility] [address] [facility] [id number] [address] [place] [address] Jun, [facility] [address] [facility] [id number] [address] [place] [address] Jun, [facility] [address] [facility] [id number] [address] [place] [phone] Apr, [facility] [address] [facility] [id number] [address] [place] [address] Apr, [facility] [address] [id number] [address] [place] [address], [place] [address] 18 Apr, 2014 [facility] [address] [id number] [address] [place] [address], [place] [address] Apr, 2014 [facility] [address] [id number] [address] [place] [address], [place] [address] Apr, 2014 [facility] [address] [id number] [address] [place] [address], [place] [address] Apr, 2014 [facility] [address] [id number] [address] [place] [address], [place] [address] Apr, [facility] [address] [id number] [address] [place] [address], [place] [address] Mar, [facility] [address] [id number] [address] [place] [address], [place] [address] Mar, [facility] [address] [id number] [address] [place] [address], [place] [address] Feb, [facility] [address] [id number] [address] [place] [address], [place] [address] Feb, [facility] [address] [id number] [address] [place] [address], [place] [address] 26 Nov, 2013 [facility] [address] [id number] [address] [place] [address], [place] [address] 26 Nov, 2013 [facility] [address] [id number] [address] [place] [address], [place] [address] 10 Nov, 2013 [facility] [address] [id number] [address] [place] [address], [place] [address] 10 Nov, 2013 [facility] [address] [id number] [address] [place] [address], [place] [address] 10 Nov, 2013 [facility] [address] [id number] [address] [place] [address], [place] [address] 10 Nov, 2013 [facility] [address] [id number] [address] [place] [address], [place] [address] Sep, [facility] [address] [id number] [address] [place] [address], [place] [address] Sep, [facility] [address] [id number] [address] [place] [address], [place] [address] Sep, [facility] [address] [id number] [address] [place] [address], [place] [address] Sep, [facility] [address] [id number] [address] [place] [address], [place] [address] Sep, [facility] [address] [id number] [address] [place] [address], [place] [address] Sep, [facility] [address] [id number] [address] [place] [address], [place] [address] Aug, [facility] [address] [id number] [address] [place] [address], [place] [address] Aug, [facility] [address] [id number] [address] [place] [address], [place] [address] July, [facility] [address] [id number] [address] [place] [address], [place] [address] July, [facility] [address] [id number] [address] [place] [address], [place] [address] July, [facility] [address] [id number] [address] [place] [address], [place] [address] July, [facility] [address] [id number] [address] [place] [address], [place] [address] Jun, [facility] [address] [id number] [address] [place] [address], [place] [address] Jun, [facility] [address] [id number] [address] [place] [address], [place] [address] Jun, [facility] [address] [id number] [address] [place] [address], [place] [address] Jun, [facility] [address] [id number] [address] [place] [address], [place] [address] May, [facility] [address] [id number] [address] [place] [address], [place] [address] May, [facility] [address] [id number] [address] [place] [address], [place] [address] Apr, [facility] [address] [id number] [address] [place] [address], [place] [address] Apr, [facility] [address] [id number] [address] [place] [address], [place] [address] Apr, [facility] [address] [id number] [address] [place] [address], [place] [address] Apr, [facility] [address] [id number] [address] [place] [address], [place] [address] Apr, [facility] [address] [id number] [address] [place] [address], [place] [address] Mar, [facility] [address] [id number] [address] [place] [address], [place] [address] Mar, [facility] [address] [id number] [address] [place] [address], [place] [address] Mar, [facility] [address] [id number] [address] [place] [address], [place] [address] Mar, [facility] [address] [id number] [address] [place] [address], [place] [address] Feb, [facility] [address] [id number] [address] [place] [address], [place] [address] Feb, [facility] [address] [id number] [address] [place] [address], [place] [address] Jan, [facility] [address] [id number] [address] [place] [address], [place] [address] Jan, [facility] [address] [id number] [address] [place] [address] [address] Jan, [facility] [address] [id number] [address] [place] [address], [place] [address] Jan, [facility] [address] [id number] [address] [place] [address], [place] [address] Dec, [facility] [address] [id number] [address] [place] [address], [place] [address] Dec, [facility] [address] [id number] [address] [place] [address], [place] [address] Dec, [facility] [address] [id number] [address] [place] [address], [place] [address] Nov, [facility] [address] [id number] [address] [place] [address], [place] [address] Oct, [facility] [address] [id number] [address] [place] [address], [place] [address] Sep, [facility] [address] [id number] [address] [place] [address], [place] [address] Sep, [facility] [address] [id number] [address] [place] [address], [place] [address] Sep, [facility] [address] [id number] [address] [place] [address], [place] [address] Jun, [facility] [address] [id number] [address] [place] [address], [place] [address] Jun, [facility] [address] [id number] [address] [place] [address] Apr, [facility] [address] [id number] [address] [place] [address], [place] [address] Mar, [facility] [address] [id number] [address] [place] [address] Feb, [facility] [address] [id number] [address] [place] [address] Feb, [facility] [address] [id number] [address] [place] [address], [place] [address] 15 Dec, 2011 [facility] [address] [id number] [address] [place] [address], [place] [address] 15 Dec, 2011 [facility] [address] [id number] [address] [place] [address], [place] [address] 04 Dec, 2011 [facility] [address] [id number] [address] [place] [address], [place] [address] 25 Nov, 2011 [facility] [address] [id number] [address] [place] [address], [place] [address] 18 Nov, 2011 [facility] [address] [id number] [address] [place] [address], [place] [address] 30 Oct, 2011 [facility] [address] [id number] [address] [place] [address], [place] [address] Sep, [facility] [address] [id number] [address] [place] [address], [place] [address] Aug, [facility] [address] [id number] [address] [place] [address], [place] [address] May, [facility] [address] [id number] [address] [place] [address], [place] [address] May, [facility] [address] [id number] [address] [place] [address], [place] [address] May, [facility] [address] [id number] [address] [place] [address], [place] [address] May, [facility] [address] [id number] [address] [place] [address], [place] [address] 19 May, 2011 [facility] [address] [id number] [address] [place] [address], [place] [address] 16 Apr, 2011 [facility] [address] [id number] [address] [place] [address], [place] [address] 14 Dec, 2010 [facility] [address] [id number] [address] [place] [address], [place] [address] 13 Nov, 2010 [facility] [address] [facility] [id number] [address] [place] [address] Feb, [facility] [address] [facility] [id number] [address] [place] [address] Jan, [facility] [address] [facility] [id number] [address] [place] [address] Jan, [facility] [address] [facility] [id number] [address] [place] [address] Jan, [facility] [address] [facility] [id number] [address] [place] [address] Jan, IMMUNIZATIONS No Known Immunizations SOCIAL HISTORY [...]
--- OUTSIDE RECORDS SUMMARY | 2019-07-28 21:42 | XMS REPORT ---
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 Name Role Phone NIKKI SAENZ Unavailable PROBLEMS Type Condition ICD9-CM Code HJC07-DB Code Onset Dates Condition S tatus SNOMED Code Problem Mood disorder F39 Active 864484 05 Problem Anxiety F41.9 Active 97686789 Problem Hemiplegia, unspecified etio logy, unspecified hemiplegia laterality, unspecified hemiplegia type G81.90 Active 52530748 Problem Left hemiplegia G81.94 Active 2782 63030 Problem Traumatic brain injury with loss of consciousness, sequela S06.9X9S Active 783821067 Problem Other specified glaucoma, unspecified laterality H 40.89 Active 59465699 Problem Other generalized epilepsy, 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, 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 Active 93918522 Problem Wheel chair as ambulatory aid Z99.3 Active 796768629 Problem Seizure disorder G40.909 Active 128 899242 ALLERGIES No Information ENCOUNTERS Encounter Location Date Diagnosis [facility] [address] [place] [address] Oct, Insect bite (nonvenomous) of right forea rm, initial encounter S50.861A [place] [address] [facility] [id number] [address] [place] [address] Sep, [place] [id number] [facility] [id number] [address] [place] [address] Aug, Rash R21 [facility] [address] [place] [address] Aug, Ringworm B35.9 [place] [address] [facility] [id number] [address] [place] [address] July, [place] [address] [facility] [id number] [address] [place] [address] July, [facility] [address] [place] [id number] [address] [place] [address] Jan, [facility] [address] [place] [id number] [address] [place] [address] Jan, Anxiety F41.9 ; Wheel chair as ambulatory aid Z99.3 ; Left hemiplegia G81.94 and Encounter for immunization Z23 [facility] [address] [place] [id number] [address] [place] [address] Jan, [facility] [address] [facility] [id number] [address] [place] [id number] Oct, Dental examination Z01.20 [place] [address] [place] [id number] [address] [place] [address] Aug, Medicare annual wellness vis it, initial Z00.00 ; Traumatic brain injury with loss of consciousness, sequela S06.9X9S ; Anxiety F41.9 ; Mood disorder F39 ; Other specified glaucoma, unspecified laterality H40.89 ; Hemiplegia, unspecified etiology, unspecified hemiplegia laterality, unspecified hemiplegia type G81.90 ; Other generalized epilepsy, 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ble, 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 ; Left hemiplegia G81.94 and Encounter for immunization Z23 [place] [address] [place] [id number] [address] [place] [address] July, Left hemiplegia G81.94 ; Low er extremity edema R60.0 ; Seizure disorder G40.909 and Wheel chair as ambulatory aid Z99.3 [facility] [address] [place] [id number] [address] [place] [address] Jan, [place] [address] [place] [id number] [place] [address] Dec, Dependent edema R60.9 and He miplegia, unspecified etiology, unspecified hemiplegia laterality, unspecified hemiplegia type G81.90 [place] [address] [place] [id number] [address] [place] [address] Aug, Lower extremity edema R60.0 [facility] [address] [id number] [address] [place] [address] July, Wheel chair as ambulatory ai d Z99.3 ; Hemiplegia, unspecified etiology, unspecified hemiplegia laterality, unspecified hemiplegia type G81.90 ; Spinal cord injury of thoracic region without bone injury, sequela S24.109S and Weakness of both lower limbs R29.898 [facility] [address] [id number] [address] [place] [address] Jun, [facility] [address] [id number] [place] [id number] May, [facility] [address] [id number] [place] [id number] May, [facility] [address] [facility] [id number] [address] [place] [address] Feb, [facility] [address] [facility] [id number] [address] [place] [address] Jan, [facility] [address] [facility] [id number] [address] [place] [address] Jan, Traumatic brain injury, with loss of consciousness of unspecified duration, sequela S06.9X9S ; Well adult health check Z00.00 and Other generalized epilepsy, 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ble, 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 [facility] [address] [id number] [address] [place] [address] Jan, [facility] [address] [id number] [address] [place] [address] Nov, [facility] [address] [facility] [id number] [address] [place] [address] Jun, [facility] [address] [facility] [id number] [address] [place] [address] 13 Jun, 2014 [facility] [address] [facility] [id number] [address] [place] [address] Apr, 2014 [facility] [address] [id number] [address] [place] [address], [place] [address] Apr, 2014 [facility] [address] [id number] [address] [place] [address], [place] [address] 18 Apr, 2014 [facility] [address] [id number] [address] [place] [address], [place] [address] Apr, 2014 [facility] [address] [id number] [address] [place] [address], [place] [address] Apr, 2014 [facility] [address] [id number] [address] [place] [address], [place] [address] Apr, 2014 [facility] [address] [id number] [address] [place] [address], [place] [address] Apr, [facility] [address] [id number] [address] [place] [address], [place] [address] Mar, [facility] [address] [id number] [address] [place] [address], [place] [address] Mar, [facility] [address] [id number] [address] [place] [address], [place] [address] Feb, [facility] [address] [id number] [address] [place] [address], [place] [address] Feb, [facility] [address] [id number] [address] [place] [address], [place] [address] 26 Nov, 2013 [facility] [address] [id number] [address] [place] [address], [place] [address] 26 Nov, 2013 [facility] [address] [id number] [address] [place] [address], [place] [address] 10 Nov, 2013 [facility] [address] [id number] [address] [place] [address], [place] [address] 10 Nov, 2013 [facility] [address] [id number] [address] [place] [address], [place] [address] 10 Nov, 2013 [facility] [address] [id number] [facility] [address] Nov, [facility] [address] [id number] [address] [place] [address], [place] [address] Sep, [facility] [address] [id number] [address] [place] [address], [place] [address] Sep, [facility] [address] [id number] [address] [place] [address], [place] [address] Sep, [facility] [address] [id number] [address] [place] [address], [place] [address] Sep, [facility] [address] [id number] [address] [place] [address], [place] [address] Sep, [facility] [address] [id number] [address] [place] [address], [place] [address] Sep, [facility] [address] [id number] [address] [place] [address], [place] [address] Aug, [facility] [address] [id number] [address] [place] [address], [place] [address] Aug, [facility] [address] [id number] [address] [place] [address], [place] [address] July, [facility] [address] [id number] [address] [place] [address], [place] [address] July, [facility] [address] [id number] [address] [place] [address], [place] [address] July, [facility] [address] [id number] [address] [place] [address], [place] [address] July, [facility] [address] [id number] [address] [place] [address], [place] [address] Jun, [facility] [address] [id number] [address] [place] [address], [place] [address] Jun, [facility] [address] [id number] [address] [place] [address], [place] [address] Jun, [facility] [address] [id number] [address] [place] [address], [place] [address] Jun, [facility] [address] [id number] [address] [place] [address], [place] [address] May, [facility] [address] [id number] [address] [place] [address], [place] [address] May, [facility] [address] [id number] [address] [place] [address], [place] [address] Apr, [facility] [address] [id number] [address] [place] [address], [place] [address] Apr, [facility] [address] [id number] [address] [place] [address], [place] [address] Apr, [facility] [address] [id number] [address] [place] [address], [place] [address] Apr, [facility] [address] [id number] [address] [place] [address], [place] [address] Apr, [facility] [address] [id number] [address] [place] [address], [place] [address] Mar, [facility] [address] [id number] [address] [place] [address], [place] [address] Mar, [facility] [address] [id number] [address] [place] [address], [place] [address] Mar, [facility] [address] [id number] [address] [place] [address], [place] [address] Mar, [facility] [address] [id number] [address] [place] [address], [place] [address] Feb, [facility] [address] [id number] [address] [place] [address], [place] [address] Feb, [facility] [address] [id number] [address] [place] [address], [place] [address] Jan, [facility] [address] [id number] [address] [place] [address], [place] [address] Jan, [facility] [address] [id number] [address] [place] [address], [place] [address] Jan, [facility] [address] [id number] [address] [place] [address], [place] [address] Jan, [facility] [address] [id number] [address] [place] [address], [place] [address] Dec, [facility] [address] [id number] [address] [place] [address], [place] [address] Dec, [facility] [address] [id number] [address] [place] [address], [place] [address] Dec, [facility] [address] [id number] [address] [place] [address], [place] [address] Nov, [facility] [address] [id number] [address] [place] [address], [place] [address] Oct, [facility] [address] [id number] [address] [place] [address], [place] [address] Sep, [facility] [address] [id number] [address] [place] [address], [place] [address] Sep, [facility] [address] [id number] [address] [place] [address], [place] [address] Sep, [facility] [address] [id number] [address] [place] [address], [place] [address] Jun, [facility] [address] [id number] [address] [place] [address], [place] [address] Jun, [facility] [address] [id number] [address] [place] [address], [place] [address] Apr, [facility] [address] [id number] [address] [place] [address], [place] [address] Mar, [facility] [address] [id number] [address] [place] [address], [place] [address] Feb, [facility] [address] [id number] [address] [place] [address], [place] [address] Feb, [facility] [address] [id number] [address] [place] [address], [place] [address] Dec, [facility] [address] [id number] [address] [place] [address], [place] [address] Dec, [facility] [address] [id number] [address] [place] [address], [place] [address] Dec, [facility] [address] [id number] [address] [place] [address], [place] [address] Nov, [facility] [address] [id number] [address] [place] [address], [place] [address] Nov, [facility] [address] [id number] [address] [place] [address], [place] [address] Oct, [facility] [address] [id number] [address] [place] [address], [place] [address] Sep, [facility] [address] [id number] [address] [place] [address], [place] [address] Aug, [facility] [address] [id number] [address] [place] [address], [place] [address] May, [facility] [address] [id number] [address] [place] [address], [place] [address] May, [facility] [address] [id number] [address] [place] [address], [place] [address] May, [facility] [address] [id number] [address] [place] [address], [place] [address] May, [facility] [address] [id number] [address] [place] [address], [place] [address] May, [facility] [address] [id number] [address] [place] [address], [place] [address] Apr, [facility] [address] [id number] [address] [place] [address] 14 Dec, 2010 [facility] [address] [facility] [id number] [address] [place] [address] 13 Nov, 2010 [facility] [address] [facility] [id number] [address] [place] [address] Feb, [facility] [address] [facility] [id number] [address] [place] [address] 30 Jan, 2009 [facility] [address] [facility] [id number] [address] [place] [address] 24 Jan, 2009 [facility] [address] [facility] [id number] [address] [place] [address] 16 Jan, 2009 [facility] [address] [facility] [id number] [address] [place] [address] 16 Jan, 2009 IMMUNIZATIONS No Known Immunizations [...]
--- OUTSIDE RECORDS SUMMARY | 2019-07-28 21:42 | XMS REPORT ---
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 Name Role Phone NIKKI SAENZ Unavailable PROBLEMS Type Condition ICD9-CM Code FRT78-DV Code Onset Dates Condition S tatus SNOMED Code Problem Mood disorder F39 Active 171420 05 Problem Anxiety F41.9 Active 48478944 Problem Hemiplegia, unspecified etio logy, unspecified hemiplegia laterality, unspecified hemiplegia type G81.90 Active 85488865 Problem Left hemiplegia G81.94 Active 2782 60881 Problem Traumatic brain injury with loss of consciousness, sequela S06.9X9S Active 312555860 Problem Other specified glaucoma, unspecified laterality H 40.89 Active 25972756 Problem Other generalized epilepsy, 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, 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 Active 74302573 Problem Wheel chair as ambulatory aid Z99.3 Active 501615370 Problem Seizure disorder G40.909 Active 128 944547 ALLERGIES No Information ENCOUNTERS Encounter Location Date Diagnosis [facility] [address] [place] [address] Oct, Insect bite (nonvenomous) of right forea rm, initial encounter S50.861A [place] [address] [address] [facility] [id number] [address] [place] [address] Sep, [place] [address] [facility] [id number] [address] [place] [address] Aug, Rash R21 [facility] [address] [place] [address] Aug, Ringworm B35.9 [place] [address] [address] [facility] [id number] [address] [place] [address] July, [place] [address] [address] [facility] [id number] [address] [place] [address] July, [facility] [address] [place] [id number] [address] [place] [address] Jan, [facility] [address] [place] [id number] [address] [place] [address] Jan, Anxiety F41.9 ; Wheel chair as ambulatory aid Z99.3 ; Left hemiplegia G81.94 and Encounter for immunization Z23 [facility] [address] [place] [id number] [address] [place] [address] Jan, [facility] [address] [facility] [id number] [address] [place] [id number] Oct, Dental examination Z01.20 [place] [address] [place] [id number] [address] [place] [address] Aug, Medicare annual wellness vis it, initial Z00.00 ; Traumatic brain injury with loss of consciousness, sequela S06.9X9S ; Anxiety F41.9 ; Mood disorder F39 ; Other specified glaucoma, unspecified laterality H40.89 ; Hemiplegia, unspecified etiology, unspecified hemiplegia laterality, unspecified hemiplegia type G81.90 ; Other generalized epilepsy, 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ble, 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 ; Left hemiplegia G81.94 and Encounter for immunization Z23 [place] [address] [place] [id number] [address] [place] [address] July, Left hemiplegia G81.94 ; Low er extremity edema R60.0 ; Seizure disorder G40.909 and Wheel chair as ambulatory aid Z99.3 [facility] [address] [place] [id number] [address] [place] [address] Jan, [place] [address] [place] [id number] [place] [address] Dec, Dependent edema R60.9 and He miplegia, unspecified etiology, unspecified hemiplegia laterality, unspecified hemiplegia type G81.90 [place] [address] [place] [id number] [address] [place] [address] Aug, Lower extremity edema R60.0 [facility] [address] [id number] [address] [place] [address] July, Wheel chair as ambulatory ai d Z99.3 ; Hemiplegia, unspecified etiology, unspecified hemiplegia laterality, unspecified hemiplegia type G81.90 ; Spinal cord injury of thoracic region without bone injury, sequela S24.109S and Weakness of both lower limbs R29.898 [facility] [address] [id number] [address] [place] [address] Jun, [facility] [address] [id number] [place] [id number] May, [facility] [address] [id number] [place] [id number] May, [facility] [address] [facility] [id number] [address] [place] [address] Feb, [facility] [address] [facility] [id number] [address] [place] [address] Jan, [facility] [address] [facility] [id number] [address] [place] [address] Jan, Traumatic brain injury, with loss of consciousness of unspecified duration, sequela S06.9X9S ; Well adult health check Z00.00 and Other generalized epilepsy, 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ble, 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 [facility] [address] [id number] [address] [place] [address] Jan, [facility] [address] [id number] [address] [place] [address] Nov, [facility] [address] [facility] [id number] [address] [place] [address] Jun, [facility] [address] [facility] [id number] [address] [place] [address] 13 Jun, 2014 [facility] [address] [facility] [id number] [address] [place] [address] Apr, 2014 [facility] [address] [id number] [address] [place] [address], [place] [address] Apr, 2014 [facility] [address] [id number] [address] [place] [address], [place] [address] 18 Apr, 2014 [facility] [address] [id number] [address] [place] [address], [place] [address] Apr, 2014 [facility] [address] [id number] [address] [place] [address], [place] [address] Apr, 2014 [facility] [address] [id number] [address] [place] [address], [place] [address] Apr, 2014 [facility] [address] [id number] [address] [place] [address], [place] [address] Apr, [facility] [address] [id number] [address] [place] [address], [place] [address] Mar, [facility] [address] [id number] [address] [place] [address], [place] [address] Mar, [facility] [address] [id number] [address] [place] [address], [place] [address] Feb, [facility] [address] [id number] [address] [place] [address], [place] [address] Feb, [facility] [address] [id number] [address] [place] [address], [place] [address] 26 Nov, 2013 [facility] [address] [id number] [address] [place] [address], [place] [address] 26 Nov, 2013 [facility] [address] [id number] [address] [place] [address], [place] [address] 10 Nov, 2013 [facility] [address] [id number] [address] [place] [address], [place] [address] 10 Nov, 2013 [facility] [address] [id number] [address] [place] [address], [place] [address] 10 Nov, 2013 [facility] [address] [id number] [facility] [place] [address] Nov, [facility] [address] [id number] [address] [place] [address], [place] [address] Sep, [facility] [address] [id number] [address] [place] [address], [place] [address] Sep, [facility] [address] [id number] [address] [place] [address], [place] [address] Sep, [facility] [address] [id number] [address] [place] [address], [place] [address] Sep, [facility] [address] [id number] [address] [place] [address], [place] [address] Sep, [facility] [address] [id number] [address] [place] [address], [place] [address] Sep, [facility] [address] [id number] [address] [place] [address], [place] [address] Aug, [facility] [address] [id number] [address] [place] [address], [place] [address] Aug, [facility] [address] [id number] [address] [place] [address], [place] [address] July, [facility] [address] [id number] [address] [place] [address], [place] [address] July, [facility] [address] [id number] [address] [place] [address], [place] [address] July, [facility] [address] [id number] [address] [place] [address], [place] [address] July, [facility] [address] [id number] [address] [place] [address], [place] [address] Jun, [facility] [address] [id number] [address] [place] [address], [place] [address] Jun, [facility] [address] [id number] [address] [place] [address], [place] [address] Jun, [facility] [address] [id number] [address] [place] [address], [place] [address] Jun, [facility] [address] [id number] [address] [place] [address], [place] [address] May, [facility] [address] [id number] [address] [place] [address], [place] [address] May, [facility] [address] [id number] [address] [place] [address], [place] [address] Apr, [facility] [address] [id number] [address] [place] [address], [place] [address] Apr, [facility] [address] [id number] [address] [place] [address], [place] [address] Apr, [facility] [address] [id number] [address] [place] [address], [place] [address] Apr, [facility] [address] [id number] [address] [place] [address], [place] [address] Apr, [facility] [address] [id number] [address] [place] [address], [place] [address] Mar, [facility] [address] [id number] [address] [place] [address], [place] [address] Mar, [facility] [address] [id number] [address] [place] [address], [place] [address] Mar, [facility] [address] [id number] [address] [place] [address], [place] [address] Mar, [facility] [address] [id number] [address] [place] [address], [place] [address] Feb, [facility] [address] [id number] [address] [place] [address], [place] [address] Feb, [facility] [address] [id number] [address] [place] [address], [place] [address] Jan, [facility] [address] [id number] [address] [place] [address], [place] [address] Jan, [facility] [address] [id number] [address] [place] [address], [place] [address] Jan, [facility] [address] [id number] [address] [place] [address], [place] [address] Jan, [facility] [address] [id number] [address] [place] [address], [place] [address] Dec, [facility] [address] [id number] [address] [place] [address], [place] [address] Dec, [facility] [address] [id number] [address] [place] [address], [place] [address] Dec, [facility] [address] [id number] [address] [place] [address], [place] [address] Nov, [facility] [address] [id number] [address] [place] [address], [place] [address] Oct, [facility] [address] [id number] [address] [place] [address], [place] [address] Sep, [facility] [address] [id number] [address] [place] [address], [place] [address] Sep, [facility] [address] [id number] [address] [place] [address], [place] [address] Sep, [facility] [address] [id number] [address] [place] [address], [place] [address] Jun, [facility] [address] [id number] [address] [place] [address], [place] [address] Jun, [facility] [address] [id number] [address] [place] [address], [place] [address] Apr, [facility] [address] [id number] [address] [place] [address], [place] [address] Mar, [facility] [address] [id number] [address] [place] [address], [place] [address] Feb, [facility] [address] [id number] [address] [place] [address], [place] [address] Feb, [facility] [address] [id number] [address] [place] [address], [place] [address] Dec, [facility] [address] [id number] [address] [place] [address], [place] [address] Dec, [facility] [address] [id number] [address] [place] [address], [place] [address] Dec, [facility] [address] [id number] [address] [place] [address], [place] [address] Nov, [facility] [address] [id number] [address] [place] [address], [place] [address] Nov, [facility] [address] [id number] [address] [place] [address], [place] [address] Oct, [facility] [address] [id number] [address] [place] [address], [place] [address] Sep, [facility] [address] [id number] [address] [place] [address], [place] [address] Aug, [facility] [address] [id number] [address] [place] [address], [place] [address] May, [facility] [address] [id number] [address] [place] [address], [place] [address] May, [facility] [address] [id number] [address] [place] [address], [place] [address] May, [facility] [address] [id number] [address] [place] [address], [place] [address] May, [facility] [address] [id number] [address] [place] [address], [place] [address] May, [facility] [address] [id number] [address] [place] [address], [place] [address] Apr, [facility] [address] [id number] [address] [place] [address] 14 Dec, 2010 [facility] [address] [facility] [id number] [address] [place] [address] 13 Nov, 2010 [facility] [address] [facility] [id number] [address] [place] [address] Feb, [facility] [address] [facility] [id number] [address] [place] [address] 30 Jan, 2009 [facility] [address] [facility] [id number] [address] [place] [address] 24 Jan, 2009 [facility] [address] [facility] [id number] [address] [place] [address] 16 Jan, 2009 [facility] [address] [facility] [id number] [address] [place] [address] 16 Jan, 2009 IMMUNIZATIONS No Known Immunizations [...]
--- OUTSIDE RECORDS SUMMARY | 2019-07-28 21:42 | XMS REPORT ---
Author Author Bradley SAENZ [facility] Address [address] [place] [address] Care Team Providers Care Automation Machine Operator Name Role Phone NIKKI SAENZ Unavailable PROBLEMS Type Condition ICD9-CM Code FGR82-BC Code Onset Dates Condition S tatus SNOMED Code Problem Mood disorder F39 Active 245758 05 Problem Anxiety F41.9 Active 00143501 Problem Hemiplegia, unspecified etio logy, unspecified hemiplegia laterality, unspecified hemiplegia type G81.90 Active 89714797 Problem Left hemiplegia G81.94 Active 2782 22551 Problem Traumatic brain injury with loss of consciousness, sequela S06.9X9S Active 349733858 Problem Other specified glaucoma, unspecified laterality H 40.89 Active 00028919 Problem Other generalized epilepsy, 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, 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 Active 51239561 Problem Wheel chair as ambulatory aid Z99.3 Active 650739648 Problem Seizure disorder G40.909 Active 128 031658 ALLERGIES No Information ENCOUNTERS Encounter Location Date Diagnosis [employer] [address] [address] Oct, Insect bite (nonvenomous) of right forea rm, initial encounter S50.861A [place] [address] [facility] [id number] [address] [place] [address] Sep, [place] [address] [facility] [id number] [address] [place] [phone] Aug, Rash R21 [employer] [address] [place] [address] Aug, Ringworm B35.9 [place] [address] [facility] [id number] [address] [place] [phone] July, [place] [address] [facility] [id number] [address] [place] [phone] July, [facility] [address] [place] [id number] [address] [place] [phone] Jan, [facility] [address] [place] [id number] [address] [place] [phone] Jan, Anxiety F41.9 ; Wheel chair as ambulatory aid Z99.3 ; Left hemiplegia G81.94 and Encounter for immunization Z23 [facility] [address] [place] [id number] [address] [place] [phone] Jan, [facility] [address] [facility] [id number] [address] [place] [id number] Oct, Dental examination Z01.20 [place] [address] [place] [id number] [address] [place] [phone] Aug, Medicare annual wellness vis it, initial Z00.00 ; Traumatic brain injury with loss of consciousness, sequela S06.9X9S ; Anxiety F41.9 ; Mood disorder F39 ; Other specified glaucoma, unspecified laterality H40.89 ; Hemiplegia, unspecified etiology, unspecified hemiplegia laterality, unspecified hemiplegia type G81.90 ; Other generalized epilepsy, 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ble, 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 ; Left hemiplegia G81.94 and Encounter for immunization Z23 [place] [address] [place] [id number] [address] [place] [phone] July, Left hemiplegia G81.94 ; Low er extremity edema R60.0 ; Seizure disorder G40.909 and Wheel chair as ambulatory aid Z99.3 [facility] [address] [place] [id number] [address] [place] [phone] Jan, [place] [address] [place] [id number] [place] [phone] Dec, Dependent edema R60.9 and He miplegia, unspecified etiology, unspecified hemiplegia laterality, unspecified hemiplegia type G81.90 [place] [address] [place] [id number] [address] [place] [phone] Aug, Lower extremity edema R60.0 [facility] [address] [id number] [address] [place] [address] July, Wheel chair as ambulatory ai d Z99.3 ; Hemiplegia, unspecified etiology, unspecified hemiplegia laterality, unspecified hemiplegia type G81.90 ; Spinal cord injury of thoracic region without bone injury, sequela S24.109S and Weakness of both lower limbs R29.898 [facility] [address] [id number] [address] [place] [phone] Jun, [facility] [address] [id number] [place] [id number] May, [facility] [address] [id number] [place] [id number] May, [facility] [address] [facility] [id number] [address] [place] [phone] Feb, [facility] [address] [facility] [id number] [address] [place] [phone] Jan, [facility] [address] [facility] [id number] [address] [place] [id number] Jan, Traumatic brain injury, with loss of consciousness of unspecified duration, sequela S06.9X9S ; Well adult health check Z00.00 and Other generalized epilepsy, 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ble, 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 [facility] [address] [id number] [address] [place] [phone] Jan, [facility] [address] [id number] [address] [place] [phone] Nov, [facility] [address] [facility] [id number] [address] [place] [phone] Jun, [facility] [address] [facility] [id number] [address] [place] [phone] 13 Jun, 2014 [facility] [address] [facility] [id number] [address] [place] [phone] Apr, 2014 [facility] [address] [id number] [address] [place] [address], [place] [address] Apr, 2014 [facility] [address] [id number] [address] [place] [address], [place] [address] 18 Apr, 2014 [facility] [address] [id number] [address] [place] [address], [place] [address] Apr, 2014 [facility] [address] [id number] [address] [place] [address], [place] [address] Apr, 2014 [facility] [address] [id number] [address] [place] [address], [place] [address] Apr, 2014 [facility] [address] [id number] [address] [place] [address], [place] [address] Apr, [facility] [address] [id number] [address] [place] [address], [place] [address] Mar, [facility] [address] [id number] [address] [place] [address], [place] [address] Mar, [facility] [address] [id number] [address] [place] [address], [place] [address] Feb, [facility] [address] [id number] [address] [place] [address], [place] [address] Feb, [facility] [address] [id number] [address] [place] [address], [place] [address] 26 Nov, 2013 [facility] [address] [id number] [address] [place] [address], [place] [address] 26 Nov, 2013 [facility] [address] [id number] [address] [place] [address], [place] [address] 10 Nov, 2013 [facility] [address] [id number] [address] [place] [address], [place] [address] 10 Nov, 2013 [facility] [address] [id number] [address] [place] [address], [place] [address] 10 Nov, 2013 [facility] [address] [id number] [facility] [place] [address] Nov, [facility] [address] [id number] [address] [place] [address], [place] [address] Sep, [facility] [address] [id number] [address] [place] [address], [place] [address] Sep, [facility] [address] [id number] [address] [place] [address], [place] [address] Sep, [facility] [address] [id number] [address] [place] [address], [place] [address] Sep, [facility] [address] [id number] [address] [place] [address], [place] [address] Sep, [facility] [address] [id number] [address] [place] [address], [place] [address] Sep, [facility] [address] [id number] [address] [place] [address], [place] [address] Aug, [facility] [address] [id number] [address] [place] [address], [place] [address] Aug, [facility] [address] [id number] [address] [place] [address], [place] [address] July, [facility] [address] [id number] [address] [place] [address], [place] [address] July, [facility] [address] [id number] [address] [place] [address], [place] [address] July, [facility] [address] [id number] [address] [place] [address], [place] [address] July, [facility] [address] [id number] [address] [place] [address], [place] [address] Jun, [facility] [address] [id number] [address] [place] [address], [place] [address] Jun, [facility] [address] [id number] [address] [place] [address], [place] [address] Jun, [facility] [address] [id number] [address] [place] [address], [place] [address] Jun, [facility] [address] [id number] [address] [place] [address], [place] [address] May, [facility] [address] [id number] [address] [place] [address], [place] [address] May, [facility] [address] [id number] [address] [place] [address], [place] [address] Apr, [facility] [address] [id number] [address] [place] [address], [place] [address] Apr, [facility] [address] [id number] [address] [place] [address], [place] [address] Apr, [facility] [address] [id number] [address] [place] [address], [place] [address] Apr, [facility] [address] [id number] [address] [place] [address], [place] [address] Apr, [facility] [address] [id number] [address] [place] [address], [place] [address] Mar, [facility] [address] [id number] [address] [place] [address], [place] [address] Mar, [facility] [address] [id number] [address] [place] [address], [place] [address] Mar, [facility] [address] [id number] [address] [place] [address], [place] [address] Mar, [facility] [address] [id number] [address] [place] [address], [place] [address] Feb, [facility] [address] [id number] [address] [place] [address], [place] [address] Feb, [facility] [address] [id number] [address] [place] [address], [place] [address] Jan, [facility] [address] [id number] [address] [place] [address], [place] [address] Jan, [facility] [address] [id number] [address] [place] [address], [place] [address] Jan, [facility] [address] [id number] [address] [place] [address], [place] [address] Jan, [facility] [address] [id number] [address] [place] [address], [place] [address] Dec, [facility] [address] [id number] [address] [place] [address], [place] [address] Dec, [facility] [address] [id number] [address] [place] [address], [place] [address] Dec, [facility] [address] [id number] [address] [place] [address], [place] [address] Nov, [facility] [address] [id number] [address] [place] [address], [place] [address] Oct, [facility] [address] [id number] [address] [place] [address], [place] [address] Sep, [facility] [address] [id number] [address] [place] [address], [place] [address] Sep, [facility] [address] [id number] [address] [place] [address], [place] [address] Sep, [facility] [address] [id number] [address] [place] [address], [place] [address] Jun, [facility] [address] [id number] [address] [place] [address], [place] [address] Jun, [facility] [address] [id number] [address] [place] [address], [place] [address] Apr, [facility] [address] [id number] [address] [place] [address], [place] [address] Mar, [facility] [address] [id number] [address] [place] [address], [place] [address] Feb, [facility] [address] [id number] [address] [place] [address], [place] [address] Feb, [facility] [address] [id number] [address] [place] [address], [place] [address] Dec, [facility] [address] [id number] [address] [place] [address], [place] [address] Dec, [facility] [address] [id number] [address] [place] [address], [place] [address] Dec, [facility] [address] [id number] [address] [place] [address], [place] [address] Nov, [facility] [address] [id number] [address] [place] [address], [place] [address] Nov, [facility] [address] [id number] [address] [place] [address], [place] [address] Oct, [facility] [address] [id number] [address] [place] [address], [place] [address] Sep, [facility] [address] [id number] [address] [place] [address], [place] [address] Aug, [facility] [address] [id number] [address] [place] [address], [place] [address] May, [facility] [address] [id number] [address] [place] [address], [place] [address] May, [facility] [address] [id number] [address] [place] [address], [place] [address] May, [facility] [address] [id number] [address] [place] [address], [place] [address] May, [facility] [address] [id number] [address] [place] [address], [place] [address] May, [facility] [address] [id number] [address] [place] [address], [place] [address] Apr, [facility] [address] [id number] [address] [place] [address] 14 Dec, 2010 [facility] [address] [facility] [id number] [address] [place] [id number] 13 Nov, 2010 [facility] [address] [facility] [id number] [address] [place] [phone] Feb, [facility] [address] [facility] [id number] [address] [place] [id number] 30 Jan, 2009 [facility] [address] [facility] [id number] [address] [place] [id number] 24 Jan, 2009 [facility] [address] [facility] [id number] [address] [place] [id number] 16 Jan, 2009 [facility] [address] [id number] [address] [place] [phone] 16 Jan, 2009 IMMUNIZATIONS No Known Immunizations SOCIAL HISTORY Never Assessed REASON FOR VISIT PLAN OF CARE VITAL SIGNS MEDICATIONS No Known Medications RESULTS No Results PROCEDURES Procedure Date Ordered Result Body Site COMPLETE CBC W/AUTO DIFF WBC Apr 14, 2014 COMPREHEN METABOLIC PANEL Apr 14, 2014 X-RAY EXAM OF ANKLE Apr 14, 2014 URINALYSIS, AUTO, W/O SCOPE Apr 14, 2014 INSTRUCTIONS MEDICATIONS ADMINISTERED No Known Medications MEDICAL [...]
--- OUTSIDE RECORDS SUMMARY | 2019-07-28 21:42 | XMS REPORT ---
Author Author Bradley SAENZ Organization [facility] Address [address] [place] [address] Care Team Providers Care Residence Director Name Role Phone NIKKI SAENZ Unavailable PROBLEMS Type Condition ICD9-CM Code [id number] Code Onset Dates Condition S tatus SNOMED Code Problem Other specified glaucoma, unspecified laterality H 40.89 Active 33993131 Problem Mood disorder F39 Active 437536 05 Problem Anxiety F41.9 Active 39067377 Problem Traumatic brain injury with loss of consciousness, sequela S06.9X9S Active 557705922 Problem Hemiplegia, unspecified etio logy, unspecified hemiplegia laterality, unspecified hemiplegia type G81.90 Active 44050866 Problem Other urinary incontinence N39.498 Act bertha 497833751 Problem Other generalized epilepsy, 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, 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 Active 95769805 Problem Wheel chair as ambulatory aid Z99.3 Active 921947703 Problem Seizure disorder G40.909 Active 128 053332 Problem Left hemiplegia G81.94 Active 2782 79372 ALLERGIES No Information ENCOUNTERS Encounter Location Date Diagnosis [place] [address] [address] Feb, [place] [address] [address] Feb, [place] [address] [address] Feb, [employer] [address] [place] [address] Feb, Mood disorder F39 ; Anxiety F41.9 ; Left hemiplegia G81.94 ; Seizure disorder G40.909 ; Traumatic brain injury with loss of consciousness, sequela S06.9X9S ; Other specified glaucoma, unspecified laterality H40.89 and Other urinary incontinence N39.498 [place] [address] [address] 15 Jan, 2019 [employer] [address] [place] [address] Oct, Insect bite (nonvenomous) of right forea rm, initial encounter S50.861A [place] [address] [address] Sep, [place] [address] [address] Aug, Rash R21 [employer] [address] [place] [address] Aug, Ringworm B35.9 [place] [address] [address] July, [place] [address] [address] July, [place] [address] [address] Jan, [place] [address] [address] Jan, Anxiety F41.9 ; Wheel chair as ambulator y aid Z99.3 ; Left hemiplegia G81.94 and Encounter for immunization Z23 [place] [address] [address] Jan, [facility] [address] [id number] [place] [id number] Oct, Dental examination Z01.20 [place] [address] [address] Aug, Medicare annual wellness visit, initial Z00.00 ; Traumatic brain injury with loss of consciousness, sequela S06.9X9S ; Anxiety F41.9 ; Mood disorder F39 ; Other specified glaucoma, unspecified laterality H40.89 ; Hemiplegia, unspecified etiology, unspecified hemiplegia laterality, unspecified hemiplegia type G81.90 ; Other generalized epilepsy, 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ble, 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 ; Left hemiplegia G81.94 and Encounter for immunization Z23 [place] [address] [address] July, Left hemiplegia G81.94 ; Lower extremity edema R60.0 ; Seizure disorder G40.909 and Wheel chair as ambulatory aid Z99.3 [place] [address] [address] Jan, [place] [address] [address] Dec, Dependent edema R60.9 and Hemiplegia, un specified etiology, unspecified hemiplegia laterality, unspecified hemiplegia type G81.90 [place] [address] [address] Aug, Lower extremity edema R60.0 [place] [address] [address] July, Wheel chair as ambulatory aid Z99.3 ; He miplegia, unspecified etiology, unspecified hemiplegia laterality, unspecified hemiplegia type G81.90 ; Spinal cord injury of thoracic region without bone injury, sequela S24.109S and Weakness of both lower limbs R29.898 [place] [address] [address] Jun, [place] [address] [id number] [place] [id number] May, [place] [address] [id number] [place] [id number] May, [place] [address] [address] Feb, [place] [address] [address] 30 Jan, 2016 [place] [address] [address] Jan, Traumatic brain injury, with loss of con sciousness of unspecified duration, sequela S06.9X9S ; Well adult health check Z00.00 and Other generalized epilepsy, 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ble, 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 [facility] [id number] [place] [address] Jan, [facility] [address] [id number] [place] [address] 28 Nov, 2014 [facility] [address] [id number] [place] [address] 14 Jun, 2014 [facility] [address] [id number] [place] [address] Jun, [facility] [address] [id number] [place] [address] Apr, [facility] [address] [id number] [place] [address] Apr, [facility] [address] [id number] [place] [address] Apr, [facility] [address] [id number] [place] [address] Apr, [facility] [address] [id number] [place] [address] Apr, [facility] [id number] [place] [address] Apr, [facility] [id number] [place] [address] Apr, [facility] [address] [id number] [place] [address] Mar, [facility] [address] [place] [id number] [place] [address] Mar, [facility] [address] [id number] [place] [address] Feb, [facility] [address] [id number] [place] [address] Feb, [facility] [address] [id number] [place] [address] Nov, 2013 [facility] [address] [facility] [id number] [place] [address] Nov, [facility] [address] [id number] [place] [address] Nov, [facility] [address] [id number] [place] [address] Nov, [facility] [address] [facility] [id number] [place] [address] Nov, [facility] [address] [facility] [id number] [place] [address] Nov, [facility] [address] [id number] [place] [address] Sep, [facility] [address] [id number] [place] [address] Sep, [facility] [address] [id number] [place] [address] Sep, [facility] [address] [id number] [place] [address] Sep, [facility] [address] [id number] [place] [address] Sep, [facility] [address] [id number] [place] [address] Sep, [facility] [address] [id number] [place] [address] Aug, [facility] [address] [facility] [id number] [place] [address] Aug, [facility] [address] [id number] [place] [address] July, [facility] [address] [id number] [place] [address] July, [facility] [address] [id number] [place] [address] July, [facility] [address] [facility] [id number] [place] [address] July, [facility] [address] [facility] [id number] [facility] [address] Jun, [facility] [address] [id number] [place] [address] Jun, [facility] [address] [id number] [place] [address] Jun, [facility] [address] [facility] [id number] [place] [address] Jun, [facility] [address] [id number] [place] [address] May, [facility] [address] [id number] [place] [address] May, [facility] [address] [id number] [place] [address] Apr, [facility] [address] [id number] [place] [address] Apr, [facility] [address] [id number] [place] [address] Apr, [facility] [address] [id number] [place] [address] Apr, [facility] [address] [id number] [place] [address] Apr, [facility] [address] [id number] [place] [address] Mar, [facility] [address] [id number] [place] [address] Mar, [facility] [address] [id number] [place] [address] Mar, [facility] [address] [id number] [place] [address] Mar, [facility] [address] [id number] [place] [address] 05 Feb, 2013 [facility] [address] [id number] [place] [address] Feb, [facility] [address] [id number] [place] [address] Jan, [facility] [address] [id number] [place] [address] Jan, [facility] [address] [id number] [place] [address] Jan, [facility] [address] [id number] [place] [address] Jan, [facility] [address] [id number] [place] [address] Dec, [facility] [address] [id number] [place] [address] Dec, [facility] [address] [id number] [place] [address] Dec, [facility] [address] [id number] [place] [address] Nov, [facility] [address] [id number] [place] [address] Oct, [facility] [address] [id number] [place] [address] Sep, [facility] [address] [id number] [place] [address] Sep, [facility] [address] [id number] [place] [address] Sep, [facility] [address] [id number] [place] [address] Jun, [facility] [address] [id number] [place] [address] Jun, [facility] [address] [id number] [place] [address] Apr, [facility] [address] [id number] [place] [address] Mar, [facility] [address] [id number] [place] [address] Feb, [facility] [address] [id number] [place] [address] Feb, [facility] [address] [id number] [place] [address] Dec, [facility] [address] [id number] [place] [address] Dec, [facility] [address] [id number] [place] [address] Dec, [facility] [address] [id number] [place] [address] Nov, [facility] [address] [id number] [place] [address] Nov, [facility] [address] [id number] [place] [address] Oct, [facility] [address] [place] [id number] [place] [address] Sep, [facility] [address] [id number] [place] [address] Aug, [facility] [address] [id number] [place] [address] May, [facility] [address] [id number] [place] [address] May, [facility] [address] [id number] [place] [address] May, [facility] [address] [id number] [place] [address] May, [facility] [address] [id number] [place] [address] May, [facility] [address] [id number] [place] [address] 16 Apr, 2011 [facility] [address] [id number] [place] [address] 14 Dec, 2010 [facility] [address] [id number] [place] [address] 13 Nov, 2010 [facility] [address] [id number] [place] [address] Feb, [facility] [address] [id number] [place] [address] Jan, [facility] [address] [id number] [place] [address] Jan, [facility] [address] [id number] [place] [address] Jan, [facility] [address] [id number] [place] [address] Jan, IMMUNIZATIONS No Known Immunizations SOCIAL HISTORY Never Assessed REASON FOR VISIT PLAN OF CARE VITAL SIGNS Height 74 in 2013-08-24 Temperature 98.6 degrees Fahrenheit 2013-08-24 Heart Rate 78 bpm 2013-08-24 Respiratory Rate 18 2013-08-24 Blood pressure systolic 120 mmHg 2013-08-24 Blood pressure diastolic 78 mmHg 2013-08-24 MEDICATIONS Unknown Medications RESULTS No Results PROCEDURES [...]
--- OUTSIDE RECORDS SUMMARY | 2019-07-28 21:42 | XMS REPORT ---
Author Author Bradley SAENZ [facility] Address [address] [place] [address] Care Team Providers Care Agency Sales Director Name Role Phone NIKKI SAENZ Unavailable PROBLEMS Type Condition ICD9-CM Code [id number] Code Onset Dates Condition S tatus SNOMED Code Problem Mood disorder F39 Active 278637 05 Problem Anxiety F41.9 Active 08216018 Problem Hemiplegia, unspecified etio logy, unspecified hemiplegia laterality, unspecified hemiplegia type G81.90 Active 23502554 Problem Left hemiplegia G81.94 Active 2782 90038 Problem Traumatic brain injury with loss of consciousness, sequela S06.9X9S Active 839498540 Problem Other specified glaucoma, unspecified laterality H 40.89 Active 74737360 Problem Other generalized epilepsy, 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, 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 Active 58687199 Problem Wheel chair as ambulatory aid Z99.3 Active 440753463 Problem Seizure disorder G40.909 Active 128 852164 ALLERGIES No Information ENCOUNTERS Encounter Location Date Diagnosis [place] [address] [facility] [id number] [address] [place] [address] Sep, [place] [address] [facility] [id number] [address] [place] [address] Aug, Rash R21 [employer] [address] [place] [address] Aug, Ringworm B35.9 [facility] [address] [facility] [id number] [address] [place] [address] July, [place] [address] [facility] [id number] [address] [place] [address] July, [place] [address] [facility] [id number] [address] [place] [address] Jan, [facility] [address] [facility] [id number] [address] [place] [address] Jan, Anxiety F41.9 ; Wheel chair as ambulatory aid Z99.3 ; Left hemiplegia G81.94 and Encounter for immunization Z23 [facility] [address] [facility] [id number] [address] [place] [address] Jan, [facility] [address] [id number] [address] [place] [id number] Oct, Dental examination Z01.20 [facility] [address] [facility] [id number] [address] [place] [address] Aug, Medicare annual wellness vis it, initial Z00.00 ; Traumatic brain injury with loss of consciousness, sequela S06.9X9S ; Anxiety F41.9 ; Mood disorder F39 ; Other specified glaucoma, unspecified laterality H40.89 ; Hemiplegia, unspecified etiology, unspecified hemiplegia laterality, unspecified hemiplegia type G81.90 ; Other generalized epilepsy, 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ble, 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 ; Left hemiplegia G81.94 and Encounter for immunization Z23 [place] [address] [facility] [id number] [address] [place] [address] July, Left hemiplegia G81.94 ; Low er extremity edema R60.0 ; Seizure disorder G40.909 and Wheel chair as ambulatory aid Z99.3 [place] [address] [facility] [id number] [address] [place] [address] Jan, [facility] [address] [place] [id number] [address] [place] [address] Dec, Dependent edema R60.9 and He miplegia, unspecified etiology, unspecified hemiplegia laterality, unspecified hemiplegia type G81.90 [place] [address] [facility] [id number] [address] [place] [address] Aug, Lower extremity edema R60.0 [place] [address] [facility] [id number] [address] [place] [address] July, Wheel chair as ambulatory ai d Z99.3 ; Hemiplegia, unspecified etiology, unspecified hemiplegia laterality, unspecified hemiplegia type G81.90 ; Spinal cord injury of thoracic region without bone injury, sequela S24.109S and Weakness of both lower limbs R29.898 [facility] [address] [facility] [id number] [address] [place] [address] Jun, [facility] [address] [id number] [id number] May, [facility] [address] [id number] [place] [id number] May, [facility] [address] [facility] [id number] [address] [place] [address] Feb, [facility] [address] [facility] [id number] [address] [place] [address] Jan, [facility] [address] [facility] [id number] [address] [place] [address] Jan, Traumatic brain injury, with loss of consciousness of unspecified duration, sequela S06.9X9S ; Well adult health check Z00.00 and Other generalized epilepsy, 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ble, 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 [facility] [address] [facility] [id number] [address] [place] [address] Jan, [facility] [address] [facility] [id number] [address] [place] [address] Nov, [facility] [address] [facility] [id number] [address] [place] [address] Jun, [facility] [address] [facility] [id number] [address] [place] [address] Jun, [facility] [address] [facility] [id number] [address] [place] [address] Apr, [facility] [address] [facility] [id number] [address] [place] [address] Apr, [facility] [address] [id number] [address] [place] [address], [place] [address] 18 Apr, 2014 [facility] [address] [id number] [address] [place] [address], [place] [address] Apr, 2014 [facility] [address] [id number] [address] [place] [address], [place] [address] Apr, 2014 [facility] [address] [id number] [address] [place] [address], [place] [address] Apr, 2014 [facility] [address] [id number] [address] [place] [address], [place] [address] Apr, [facility] [address] [id number] [address] [place] [address], [place] [address] Mar, [facility] [address] [id number] [address] [place] [address], [place] [address] Mar, [facility] [address] [id number] [address] [place] [address], [place] [address] Feb, [facility] [address] [id number] [address] [place] [address], [place] [address] Feb, [facility] [address] [id number] [address] [place] [address], [place] [address] 26 Nov, 2013 [facility] [address] [id number] [address] [place] [address], [place] [address] 26 Nov, 2013 [facility] [address] [id number] [address] [place] [address], [place] [address] 10 Nov, 2013 [facility] [address] [id number] [address] [place] [address], [place] [address] 10 Nov, 2013 [facility] [address] [id number] [address] [place] [address], [place] [address] 10 Nov, 2013 [facility] [address] [id number] [address] [place] [address], [place] [address] 10 Nov, 2013 [facility] [address] [id number] [address] [place] [address], [place] [address] Sep, [facility] [address] [id number] [address] [place] [address], [place] [address] Sep, [facility] [address] [id number] [address] [place] [address], [place] [address] Sep, [facility] [address] [id number] [address] [place] [address], [place] [address] Sep, [facility] [address] [id number] [address] [place] [address], [place] [address] Sep, [facility] [address] [id number] [address] [place] [address], [place] [address] Sep, [facility] [address] [id number] [address] [place] [address], [place] [address] Aug, [facility] [address] [id number] [address] [place] [address], [place] [address] Aug, [facility] [address] [id number] [address] [place] [address], [place] [address] July, [facility] [address] [id number] [address] [place] [address], [place] [address] July, [facility] [address] [id number] [address] [place] [address], [place] [address] July, [facility] [address] [id number] [address] [place] [address], [place] [address] July, [facility] [address] [id number] [address] [place] [address], [place] [address] Jun, [facility] [address] [id number] [address] [place] [address], [place] [address] Jun, [facility] [address] [id number] [address] [place] [address], [place] [address] Jun, [facility] [address] [id number] [address] [place] [address], [place] [address] Jun, [facility] [address] [id number] [address] [place] [address], [place] [address] May, [facility] [address] [id number] [address] [place] [address], [place] [address] May, [facility] [address] [id number] [address] [place] [address], [place] [address] Apr, [facility] [address] [id number] [address] [place] [address], [place] [address] Apr, [facility] [address] [id number] [address] [place] [address], [place] [address] Apr, [facility] [address] [id number] [address] [place] [address], [place] [address] Apr, [facility] [address] [id number] [address] [place] [address], [place] [address] Apr, [facility] [address] [id number] [address] [place] [address], [place] [address] Mar, [facility] [address] [id number] [address] [place] [address], [place] [address] Mar, [facility] [address] [id number] [address] [place] [address], [place] [address] Mar, [facility] [address] [id number] [address] [place] [address], [place] [address] Mar, [facility] [address] [id number] [address] [place] [address], [place] [address] Feb, [facility] [address] [id number] [address] [place] [address], [place] [address] Feb, [facility] [address] [id number] [address] [place] [address], [place] [address] Jan, [facility] [address] [id number] [address] [place] [address], [place] [address] Jan, [facility] [address] [id number] [address] [place] [address] [address] Jan, [facility] [address] [id number] [address] [place] [address], [place] [address] Jan, [facility] [address] [id number] [address] [place] [address], [place] [address] Dec, [facility] [address] [id number] [address] [place] [address], [place] [address] Dec, [facility] [address] [id number] [address] [place] [address], [place] [address] Dec, [facility] [address] [id number] [address] [place] [address], [place] [address] Nov, [facility] [address] [id number] [address] [place] [address], [place] [address] Oct, [facility] [address] [id number] [address] [place] [address], [place] [address] Sep, [facility] [address] [id number] [address] [place] [address], [place] [address] Sep, [facility] [address] [id number] [address] [place] [address], [place] [address] Sep, [facility] [address] [id number] [address] [place] [address], [place] [address] Jun, [facility] [address] [id number] [address] [place] [address], [place] [address] Jun, [facility] [address] [id number] [address] [place] [address] Apr, [facility] [address] [id number] [address] [place] [address], [place] [address] Mar, [facility] [address] [id number] [address] [place] [address] Feb, [facility] [address] [id number] [address] [place] [address] Feb, [facility] [address] [id number] [address] [place] [address], [place] [address] 15 Dec, 2011 [facility] [address] [id number] [address] [place] [address], [place] [address] 15 Dec, 2011 [facility] [address] [id number] [address] [place] [address], [place] [address] 04 Dec, 2011 [facility] [address] [id number] [address] [place] [address], [place] [address] 25 Nov, 2011 [facility] [address] [id number] [address] [place] [address], [place] [address] 18 Nov, 2011 [facility] [address] [id number] [address] [place] [address], [place] [address] 30 Oct, 2011 [facility] [address] [id number] [address] [place] [address], [place] [address] Sep, [facility] [address] [id number] [address] [place] [address], [place] [address] Aug, [facility] [address] [id number] [address] [place] [address], [place] [address] May, [facility] [address] [id number] [address] [place] [address], [place] [address] May, [facility] [address] [id number] [address] [place] [address], [place] [address] May, [facility] [address] [id number] [address] [place] [address], [place] [address] May, [facility] [address] [id number] [address] [place] [address], [place] [address] 19 May, 2011 [facility] [address] [id number] [address] [place] [address], [place] [address] 16 Apr, 2011 [facility] [address] [id number] [address] [place] [address], [place] [address] 14 Dec, 2010 [facility] [address] [id number] [address] [place] [address], [place] [address] 13 Nov, 2010 [facility] [address] [facility] [id number] [address] [place] [address] Feb, [facility] [address] [facility] [id number] [address] [place] [address] Jan, [facility] [address] [facility] [id number] [address] [place] [address] Jan, [facility] [address] [facility] [id number] [address] [place] [address] Jan, [facility] [address] [facility] [id number] [address] [place] [address] Jan, IMMUNIZATIONS No Known Immunizations SOCIAL HISTORY [...]
--- OUTSIDE RECORDS SUMMARY | 2019-07-28 21:43 | XMS REPORT ---
Author Author Bradley Briseno Doctor Organization [facility] Address Unknown Phone Unavailable Care Team Providers Care Drafter Assistant Name Role Phone Migration, Doctor Unavailable Unavailable PROBLEMS Type Condition ICD9-CM Code [id number] Code Onset Dates Condition S tatus SNOMED Code Problem Mood disorder F39 Active 745847 05 Problem Anxiety F41.9 Active 41872241 Problem Hemiplegia, unspecified etio logy, unspecified hemiplegia laterality, unspecified hemiplegia type G81.90 Active 57626049 Problem Left hemiplegia G81.94 Active 2782 44319 Problem Traumatic brain injury with loss of consciousness, sequela S06.9X9S Active 361472891 Problem Other specified glaucoma, unspecified laterality H 40.89 Active 22289491 Problem Other generalized epilepsy, 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, 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 Active 31159800 Problem Wheel chair as ambulatory aid Z99.3 Active 814578645 Problem Seizure disorder G40.909 Active 128 249961 ALLERGIES No Information ENCOUNTERS Encounter Location Date Diagnosis [facility] [address] [id number] [address] [place] [phone] Jan, [facility] [address] [facility] [id number] [address] [place] [phone] Jan, Anxiety F41.9 ; Wheel chair as ambulatory aid Z99.3 ; Left hemiplegia G81.94 and Encounter for immunization Z23 [facility] [address] [facility] [id number] [address] [place] [phone] Jan, [facility] [address] [id number] [address] [place] [id number] Oct, Dental examination Z01.20 [facility] [address] [facility] [id number] [address] [place] [phone] Aug, Medicare annual wellness vis it, initial Z00.00 ; Traumatic brain injury with loss of consciousness, sequela S06.9X9S ; Anxiety F41.9 ; Mood disorder F39 ; Other specified glaucoma, unspecified laterality H40.89 ; Hemiplegia, unspecified etiology, unspecified hemiplegia laterality, unspecified hemiplegia type G81.90 ; Other generalized epilepsy, 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ble, 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 ; Left hemiplegia G81.94 and Encounter for immunization Z23 [facility] [address] [facility] [id number] [address] [place] [phone] July, Left hemiplegia G81.94 ; Low er extremity edema R60.0 ; Seizure disorder G40.909 and Wheel chair as ambulatory aid Z99.3 [place] [address] [id number] [address] [place] [phone] Jan, [place] [address] [facility] [id number] [address] [place] [phone] Dec, Dependent edema R60.9 and He miplegia, unspecified etiology, unspecified hemiplegia laterality, unspecified hemiplegia type G81.90 [place] [address] [id number] [address] [place] [phone] Aug, Lower extremity edema R60.0 [place] [address] [facility] [id number] [address] [place] [phone] July, Wheel chair as ambulatory ai d Z99.3 ; Hemiplegia, unspecified etiology, unspecified hemiplegia laterality, unspecified hemiplegia type G81.90 ; Spinal cord injury of thoracic region without bone injury, sequela S24.109S and Weakness of both lower limbs R29.898 [place] [id number] [id number] [address] [place] [phone] Jun, [facility] [address] [id number] [place] [id number] May, [place] [address] [id number] [place] [id number] May, [place] [address] [facility] [id number] [address] [place] [phone] Feb, [facility] [address] [id number] [address] [place] [phone] Jan, [facility] [address] [facility] [id number] [address] [place] [phone] Jan, Traumatic brain injury, with loss of consciousness of unspecified duration, sequela S06.9X9S ; Well adult health check Z00.00 and Other generalized epilepsy, 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ble, 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 [facility] [address] [id number] [address] [place] [phone] Jan, [facility] [address] [id number] [address] [place] [phone] Nov, [facility] [address] [id number] [address] [place] [phone] Jun, [facility] [address] [id number] [address] [place] [phone] Jun, [facility] [address] [id number] [address] [place] [phone] Apr, [facility] [address] [facility] [id number] [address] [place] [phone] Apr, [facility] [address] [facility] [id number] [address] [place] [phone] 18 Apr, 2014 [facility] [address] [id number] [address] [place] [phone] Apr, [facility] [address] [facility] [id number] [address] [place] [phone] Apr, [facility] [address] [facility] [id number] [address] [place] [phone] Apr, [facility] [address] [facility] [id number] [address] [place] [phone] Apr, [facility] [address] [facility] [id number] [address] [place] [phone] Mar, [facility] [address] [id number] [address] [place] [address], [place] [address] Mar, [facility] [address] [id number] [address] [place] [address], [place] [address] Feb, [facility] [address] [id number] [address] [place] [address], [place] [address] Feb, [facility] [address] [id number] [address] [place] [address], [place] [address] Nov, [facility] [address] [id number] [address] [place] [address], [place] [address] Nov, [facility] [address] [id number] [address] [place] [address], [place] [address] Nov, [facility] [address] [id number] [address] [place] [address], [place] [address] Nov, [facility] [address] [id number] [address] [place] [address], [place] [address] Nov, [facility] [address] [id number] [address] [place] [address], [place] [address] Nov, [facility] [address] [id number] [address] [place] [address], [place] [address] Sep, [facility] [address] [id number] [address] [place] [address], [place] [address] Sep, [facility] [address] [id number] [address] [place] [address], [place] [address] Sep, [facility] [address] [id number] [address] [place] [address], [place] [address] Sep, [facility] [address] [id number] [address] [place] [address], [place] [address] Sep, [facility] [address] [id number] [address] [place] [address], [place] [address] Sep, [facility] [address] [id number] [address] [place] [address], [place] [address] Aug, [facility] [address] [id number] [address] [place] [address], [place] [address] Aug, [facility] [address] [id number] [address] [place] [address], [place] [address] July, [facility] [address] [id number] [address] [place] [address], [place] [address] July, [facility] [address] [id number] [address] [place] [address], [place] [address] July, [facility] [address] [id number] [address] [place] [address], [place] [address] July, [facility] [address] [id number] [address] [place] [address], [place] [address] Jun, [facility] [address] [id number] [address] [place] [address], [place] [address] Jun, [facility] [address] [id number] [address] [place] [address], [place] [address] Jun, [facility] [address] [id number] [address] [place] [address], [place] [address] Jun, [facility] [address] [id number] [address] [place] [address], [place] [address] May, [facility] [address] [id number] [address] [place] [address], [place] [address] May, [facility] [address] [id number] [address] [place] [address], [place] [address] Apr, [facility] [address] [id number] [address] [place] [address], [place] [address] Apr, [facility] [address] [id number] [address] [place] [address], [place] [address] Apr, [facility] [address] [id number] [address] [place] [address], [place] [address] Apr, [facility] [address] [id number] [address] [place] [address], [place] [address] 05 Apr, 2013 [facility] [address] [id number] [address] [place] [address], [place] [address] Mar, [facility] [address] [id number] [address] [place] [address], [place] [address] Mar, [facility] [address] [id number] [address] [place] [address], [place] [address] Mar, [facility] [address] [id number] [address] [place] [address], [place] [address] Mar, [facility] [address] [id number] [address] [place] [address], [place] [address] Feb, [facility] [address] [id number] [address] [place] [address], [place] [address] Feb, [facility] [address] [id number] [address] [place] [address], [place] [address] Jan, [facility] [address] [id number] [address] [place] [address], [place] [address] Jan, [facility] [address] [id number] [address] [place] [address], [place] [address] Jan, [facility] [address] [id number] [address] [place] [address], [place] [address] Jan, [facility] [address] [id number] [address] [place] [address], [place] [address] Dec, [facility] [address] [id number] [address] [place] [address], [place] [address] Dec, [facility] [address] [id number] [address] [place] [address], [place] [address] Dec, [facility] [address] [id number] [address] [place] [address], [place] [address] 16 Nov, 2012 [facility] [address] [id number] [address] [place] [address], [place] [address] Oct, [facility] [address] [id number] [address] [place] [address], [place] [address] Sep, [facility] [address] [id number] [address] [place] [address], [place] [address] Sep, [facility] [address] [id number] [address] [place] [address], [place] [address] Sep, [facility] [address] [id number] [address] [place] [address], [place] [address] Jun, [facility] [address] [id number] [address] [place] [address], [place] [address] Jun, [facility] [address] [id number] [address] [place] [address], [place] [address] Apr, [facility] [address] [id number] [address] [place] [address], [place] [address] Mar, [facility] [address] [id number] [address] [place] [address], [place] [address] Feb, [facility] [address] [id number] [address] [place] [address], [place] [address] Feb, [facility] [address] [id number] [address] [place] [address], [place] [address] Dec, [facility] [address] [id number] [address] [place] [address], [place] [address] Dec, [facility] [address] [id number] [address] [place] [address], [place] [address] Dec, [facility] [address] [id number] [address] [place] [address], [place] [address] Nov, [facility] [address] [id number] [address] [place] [address], [place] [address] Nov, [facility] [address] [id number] [address] [place] [address], [place] [address] Oct, [facility] [address] [id number] [address] [place] [address] 05 Sep, 2011 [facility] [address] [id number] [address] [place] [address] Aug, [facility] [address] [id number] [address] [place] [phone] May, [facility] [address] [id number] [address] [place] [address] May, [facility] [address] [id number] [address] [place] [address] May, [facility] [address] [id number] [address] [place] [phone] May, [facility] [address] [id number] [address] [place] [address] May, [facility] [address] [id number] [address] [place] [phone] 16 Apr, 2011 [facility] [address] [id number] [address] [place] [id number] 14 Dec, 2010 [facility] [address] [id number] [address] [place] [phone] Nov, [facility] [address] [id number] [address] [place] [phone] Feb, [facility] [address] [id number] [address] [place] [phone] 30 Jan, 2009 [facility] [address] [id number] [address] [place] [phone] 24 Jan, 2009 [facility] [address] [id number] [address] [place] [phone] 16 Jan, 2009 [facility] [address] [id number] [address] [place] [phone] 16 Jan, 2009 IMMUNIZATIONS No Known Immunizations SOCIAL HISTORY Never Assessed REASON FOR VISIT EMR-[facility] PLAN OF CARE VITAL SIGNS MEDICATIONS Unknown [...]
--- OUTSIDE RECORDS SUMMARY | 2019-07-28 21:43 | XMS REPORT ---
Author Author Bradley Briseno Doctor Organization [facility] Address Unknown Phone Unavailable Care Team Providers Care Luster Repairer Name Role Phone Migration, Doctor Unavailable Unavailable PROBLEMS Type Condition ICD9-CM Code OKE17-YF Code Onset Dates Condition S tatus SNOMED Code Problem Mood disorder F39 Active 949186 05 Problem Anxiety F41.9 Active 12306485 Problem Hemiplegia, unspecified etio logy, unspecified hemiplegia laterality, unspecified hemiplegia type G81.90 Active 69011644 Problem Left hemiplegia G81.94 Active 2782 11281 Problem Traumatic brain injury with loss of consciousness, sequela S06.9X9S Active 217283820 Problem Other specified glaucoma, unspecified laterality H 40.89 Active 25855765 Problem Other generalized epilepsy, 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, 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 Active 63604964 Problem Wheel chair as ambulatory aid Z99.3 Active 420600897 Problem Seizure disorder G40.909 Active 128 775745 ALLERGIES No Information ENCOUNTERS Encounter Location Date Diagnosis [facility] [address] [id number] [address] [place] [id number] Jan, [facility] [address] [facility] [id number] [address] [place] [phone] Jan, Anxiety F41.9 ; Wheel chair as ambulatory aid Z99.3 ; Left hemiplegia G81.94 and Encounter for immunization Z23 [facility] [address] [facility] [id number] [address] [place] [phone] Jan, [facility] [address] [id number] [address] [place] [id number] Oct, Dental examination Z01.20 [facility] [address] [facility] [id number] [address] [place] [phone] Aug, Medicare annual wellness vis it, initial Z00.00 ; Traumatic brain injury with loss of consciousness, sequela S06.9X9S ; Anxiety F41.9 ; Mood disorder F39 ; Other specified glaucoma, unspecified laterality H40.89 ; Hemiplegia, unspecified etiology, unspecified hemiplegia laterality, unspecified hemiplegia type G81.90 ; Other generalized epilepsy, 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ble, 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 ; Left hemiplegia G81.94 and Encounter for immunization Z23 [facility] [address] [facility] [id number] [address] [place] [id number] July, Left hemiplegia G81.94 ; Low er extremity edema R60.0 ; Seizure disorder G40.909 and Wheel chair as ambulatory aid Z99.3 [place] [address] [id number] [address] [place] [phone] Jan, [place] [address] [facility] [id number] [address] [place] [id number] Dec, Dependent edema R60.9 and He miplegia, unspecified etiology, unspecified hemiplegia laterality, unspecified hemiplegia type G81.90 [place] [address] [id number] [address] [place] [phone] Aug, Lower extremity edema R60.0 [place] [address] [facility] [id number] [address] [place] [phone] July, Wheel chair as ambulatory ai d Z99.3 ; Hemiplegia, unspecified etiology, unspecified hemiplegia laterality, unspecified hemiplegia type G81.90 ; Spinal cord injury of thoracic region without bone injury, sequela S24.109S and Weakness of both lower limbs R29.898 [place] [address] [id number] [address] [place] [phone] Jun, [facility] [address] [id number] [place] [id number] May, [place] [address] [id number] [place] [id number] May, [place] [address] [facility] [id number] [address] [place] [phone] Feb, [facility] [address] [id number] [address] [place] [phone] Jan, [facility] [address] [facility] [id number] [address] [place] [id number] Jan, Traumatic brain injury, with loss of consciousness of unspecified duration, sequela S06.9X9S ; Well adult health check Z00.00 and Other generalized epilepsy, 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ble, 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 [facility] [address] [id number] [address] [place] [phone] Jan, [facility] [address] [id number] [address] [place] [phone] Nov, [facility] [address] [address] [id number] [address] [place] [phone] Jun, [facility] [address] [id number] [address] [place] [phone] Jun, [facility] [address] [id number] [address] [place] [phone] Apr, [facility] [address] [facility] [id number] [address] [place] [phone] Apr, [facility] [address] [facility] [id number] [address] [place] [phone] 18 Apr, 2014 [facility] [address] [address] [id number] [address] [place] [phone] Apr, [facility] [address] [facility] [id number] [address] [place] [phone] Apr, [facility] [address] [facility] [id number] [address] [place] [phone] Apr, [facility] [address] [facility] [id number] [address] [place] [phone] Apr, [facility] [address] [facility] [id number] [address] [place] [phone] Mar, [facility] [address] [id number] [address] [place] [address], [place] [address] Mar, [facility] [address] [id number] [address] [place] [address], [place] [address] Feb, [facility] [address] [id number] [address] [place] [address], [place] [address] Feb, [facility] [address] [id number] [address] [place] [address], [place] [address] Nov, [facility] [address] [id number] [address] [place] [address], [place] [address] Nov, [facility] [address] [id number] [address] [place] [address], [place] [address] Nov, [facility] [address] [id number] [address] [place] [address], [place] [address] Nov, [facility] [address] [id number] [address] [place] [address], [place] [address] Nov, [facility] [address] [id number] [address] [place] [address], [place] [address] Nov, [facility] [address] [id number] [address] [place] [address], [place] [address] Sep, [facility] [address] [id number] [address] [place] [address], [place] [address] Sep, [facility] [address] [id number] [address] [place] [address], [place] [address] Sep, [facility] [address] [id number] [address] [place] [address], [place] [address] Sep, [facility] [address] [id number] [address] [place] [address], [place] [address] Sep, [facility] [address] [id number] [address] [place] [address], [place] [address] Sep, [facility] [address] [id number] [address] [place] [address], [place] [address] Aug, [facility] [address] [id number] [address] [place] [address], [place] [address] Aug, [facility] [address] [id number] [address] [place] [address], [place] [address] July, [facility] [address] [id number] [address] [place] [address], [place] [address] July, [facility] [address] [id number] [address] [place] [address], [place] [address] July, [facility] [address] [id number] [address] [place] [address], [place] [address] July, [facility] [address] [id number] [address] [place] [address], [place] [address] Jun, [facility] [address] [id number] [address] [place] [address], [place] [address] Jun, [facility] [address] [id number] [address] [place] [address], [place] [address] Jun, [facility] [address] [id number] [address] [place] [address], [place] [address] Jun, [facility] [address] [id number] [address] [place] [address], [place] [address] May, [facility] [address] [id number] [address] [place] [address], [place] [address] May, [facility] [address] [id number] [address] [place] [address], [place] [address] Apr, [facility] [address] [id number] [address] [place] [address], [place] [address] Apr, [facility] [address] [id number] [address] [place] [address], [place] [address] Apr, [facility] [address] [id number] [address] [place] [address], [place] [address] Apr, [facility] [address] [id number] [address] [place] [address], [place] [address] 05 Apr, 2013 [facility] [address] [id number] [address] [place] [address], [place] [address] Mar, [facility] [address] [id number] [address] [place] [address], [place] [address] Mar, [facility] [address] [id number] [address] [place] [address], [place] [address] Mar, [facility] [address] [id number] [address] [place] [address], [place] [address] Mar, [facility] [address] [id number] [address] [place] [address], [place] [address] Feb, [facility] [address] [id number] [address] [place] [address], [place] [address] Feb, [facility] [address] [id number] [address] [place] [address], [place] [address] Jan, [facility] [address] [id number] [address] [place] [address], [place] [address] Jan, [facility] [address] [id number] [address] [place] [address], [place] [address] Jan, [facility] [address] [id number] [address] [place] [address], [place] [address] Jan, [facility] [address] [id number] [address] [place] [address], [place] [address] Dec, [facility] [address] [id number] [address] [place] [address], [place] [address] Dec, [facility] [address] [id number] [address] [place] [address], [place] [address] Dec, [facility] [address] [id number] [address] [place] [address], [place] [address] 16 Nov, 2012 [facility] [address] [id number] [address] [place] [address], [place] [address] Oct, [facility] [address] [id number] [address] [place] [address], [place] [address] Sep, [facility] [address] [id number] [address] [place] [address], [place] [address] Sep, [facility] [address] [id number] [address] [place] [address], [place] [address] Sep, [facility] [address] [id number] [address] [place] [address], [place] [address] Jun, [facility] [address] [id number] [address] [place] [address], [place] [address] Jun, [facility] [address] [id number] [address] [place] [address], [place] [address] Apr, [facility] [address] [id number] [address] [place] [address], [place] [address] Mar, [facility] [address] [id number] [address] [place] [address], [place] [address] Feb, [facility] [address] [id number] [address] [place] [address], [place] [address] Feb, [facility] [address] [id number] [address] [place] [address], [place] [address] Dec, [facility] [address] [id number] [address] [place] [address], [place] [address] Dec, [facility] [address] [id number] [address] [place] [address], [place] [address] Dec, [facility] [address] [id number] [address] [place] [address], [place] [address] Nov, [facility] [address] [id number] [address] [place] [address], [place] [address] Nov, [facility] [address] [id number] [address] [place] [address], [place] [address] Oct, [facility] [address] [id number] [address] [place] [id number] 05 Sep, 2011 [facility] [address] [id number] [address] [place] [id number] Aug, [facility] [address] [id number] [address] [place] [id number] May, [facility] [address] [id number] [address] [place] [address] May, [facility] [address] [id number] [address] [place] [id number] May, [facility] [address] [id number] [address] [place] [phone] May, [facility] [address] [id number] [address] [place] [id number] May, [facility] [address] [id number] [address] [place] [id number] 16 Apr, 2011 [facility] [address] [id number] [address] [place] [id number] 14 Dec, 2010 [facility] [address] [id number] [address] [place] [phone] Nov, [facility] [address] [id number] [address] [place] [id number] Feb, [facility] [address] [id number] [address] [place] [id number] 30 Jan, 2009 [facility] [address] [id number] [address] [place] [id number] 24 Jan, 2009 [facility] [address] [id number] [address] [place] [id number] 16 Jan, 2009 [facility] [address] [id number] [address] [place] [id number] 16 Jan, 2009 IMMUNIZATIONS No Known Immunizations SOCIAL HISTORY Never Assessed REASON FOR VISIT EMR-[facility] PLAN OF CARE VITAL SIGNS MEDICATIONS Unknown [...]
--- OUTSIDE RECORDS SUMMARY | 2019-07-28 21:43 | XMS REPORT ---
Author Author Bradley SAENZ [facility] Address [address] [place] [address] Care Team Providers Care Habitat Biologist Name Role Phone NIKKI SAENZ Unavailable PROBLEMS Type Condition ICD9-CM Code CWA62-EU Code Onset Dates Condition S tatus SNOMED Code Problem Mood disorder F39 Active 875924 05 Problem Anxiety F41.9 Active 70508587 Problem Hemiplegia, unspecified etio logy, unspecified hemiplegia laterality, unspecified hemiplegia type G81.90 Active 67549306 Problem Left hemiplegia G81.94 Active 2782 83058 Problem Traumatic brain injury with loss of consciousness, sequela S06.9X9S Active 942839624 Problem Other specified glaucoma, unspecified laterality H 40.89 Active 80474934 Problem Other generalized epilepsy, 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, 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 Active 20787131 Problem Wheel chair as ambulatory aid Z99.3 Active 205886156 Problem Seizure disorder G40.909 Active 128 [id number] ALLERGIES No Information ENCOUNTERS Encounter Location Date Diagnosis [facility] [address] [facility] [id number] [address] [place] [address] Aug, Rash R21 [employer] [address] [place] [address] Aug, Ringworm B35.9 [facility] [address] [facility] [id number] [address] [place] [address] July, [facility] [address] [facility] [id number] [address] [place] [address] July, [facility] [address] [facility] [id number] [address] [place] [address] Jan, [facility] [address] [facility] [id number] [address] [place] [address] Jan, Anxiety F41.9 ; Wheel chair as ambulatory aid Z99.3 ; Left hemiplegia G81.94 and Encounter for immunization Z23 [facility] [address] [facility] [id number] [address] [place] [address] Jan, [facility] [address] [id number] [address] [place] [id number] Oct, Dental examination Z01.20 [facility] [address] [facility] [id number] [address] [place] [address] Aug, Medicare annual wellness vis it, initial Z00.00 ; Traumatic brain injury with loss of consciousness, sequela S06.9X9S ; Anxiety F41.9 ; Mood disorder F39 ; Other specified glaucoma, unspecified laterality H40.89 ; Hemiplegia, unspecified etiology, unspecified hemiplegia laterality, unspecified hemiplegia type G81.90 ; Other generalized epilepsy, 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ble, 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 ; Left hemiplegia G81.94 and Encounter for immunization Z23 [facility] [address] [place] [id number] [address] [place] [address] July, Left hemiplegia G81.94 ; Low er extremity edema R60.0 ; Seizure disorder G40.909 and Wheel chair as ambulatory aid Z99.3 [place] [address] [place] [id number] [address] [place] [address] Jan, [place] [address] [place] [id number] [address] [place] [address] Dec, Dependent edema R60.9 and He miplegia, unspecified etiology, unspecified hemiplegia laterality, unspecified hemiplegia type G81.90 [place] [address] [facility] [id number] [address] [place] [address] Aug, Lower extremity edema R60.0 [place] [address] [facility] [id number] [address] [place] [address] July, Wheel chair as ambulatory ai d Z99.3 ; Hemiplegia, unspecified etiology, unspecified hemiplegia laterality, unspecified hemiplegia type G81.90 ; Spinal cord injury of thoracic region without bone injury, sequela S24.109S and Weakness of both lower limbs R29.898 [facility] [address] [id number] [address] [place] [address] Jun, [facility] [address] [id number] [place] [id number] May, [facility] [address] [id number] [place] [id number] May, [facility] [address] [id number] [address] [place] [phone] Feb, [facility] [address] [id number] [address] [place] [address] 30 Jan, 2016 [facility] [address] [id number] [address] [place] [address] 16 Jan, 2016 Traumatic brain injury, with loss of consciousness of unspecified duration, sequela S06.9X9S ; Well adult health check Z00.00 and Other generalized epilepsy, 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ble, 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 [facility] [address] [id number] [address] [place] [address] Jan, [facility] [address] [id number] [address] [place] [address] 28 Nov, 2014 [facility] [address] [id number] [address] [place] [address] Jun, [facility] [address] [id number] [address] [place] [address] Jun, [facility] [address] [id number] [address] [place] [address] Apr, [facility] [address] [id number] [address] [place] [phone] Apr, [facility] [address] [id number] [address] [place] [address] 18 Apr, 2014 [facility] [address] [id number] [address] [place] [address], [place] [address] Apr, 2014 [facility] [address] [id number] [address] [place] [address], [place] [address] Apr, 2014 [facility] [address] [id number] [address] [place] [address], [place] [address] Apr, 2014 [facility] [address] [id number] [address] [place] [address], [place] [address] Apr, [facility] [address] [id number] [address] [place] [address], [place] [address] Mar, [facility] [address] [id number] [address] [place] [address], [place] [address] Mar, [facility] [address] [id number] [address] [place] [address], [place] [address] Feb, [facility] [address] [id number] [address] [place] [address], [place] [address] Feb, [facility] [address] [id number] [address] [place] [address], [place] [address] Nov, [facility] [address] [id number] [address] [place] [address], [place] [address] Nov, [facility] [address] [id number] [address] [place] [address], [place] [address] 10 Nov, 2013 [facility] [address] [id number] [address] [place] [address], [place] [address] Nov, [facility] [address] [id number] [address] [place] [address], [place] [address] 10 Nov, 2013 [facility] [address] [id number] [address] [place] [address], [place] [address] Nov, [facility] [address] [id number] [address] [place] [address], [place] [address] Sep, [facility] [address] [id number] [address] [place] [address], [place] [address] Sep, [facility] [address] [id number] [address] [place] [address], [place] [address] Sep, [facility] [address] [id number] [address] [place] [address], [place] [address] Sep, [facility] [address] [id number] [address] [place] [address], [place] [address] Sep, [facility] [address] [id number] [address] [place] [address], [place] [address] Sep, [facility] [address] [id number] [address] [place] [address], [place] [address] Aug, [facility] [address] [id number] [address] [place] [address], [place] [address] Aug, [facility] [address] [id number] [address] [place] [address], [place] [address] July, [facility] [address] [id number] [address] [place] [address], [place] [address] July, [facility] [address] [id number] [address] [place] [address], [place] [address] July, [facility] [address] [id number] [address] [place] [address], [place] [address] July, [facility] [address] [id number] [address] [place] [address], [place] [address] Jun, [facility] [address] [id number] [address] [place] [address], [place] [address] Jun, [facility] [address] [id number] [address] [place] [address], [place] [address] Jun, [facility] [address] [id number] [address] [place] [address], [place] [address] Jun, [facility] [address] [id number] [address] [place] [address], [place] [address] May, [facility] [address] [id number] [address] [place] [address], [place] [address] May, [facility] [address] [id number] [address] [place] [address], [place] [address] Apr, [facility] [address] [id number] [address] [place] [address], [place] [address] Apr, [facility] [address] [id number] [address] [place] [address], [place] [address] Apr, [facility] [address] [id number] [address] [place] [address], [place] [address] Apr, [facility] [address] [id number] [address] [place] [address], [place] [address] Apr, [facility] [address] [id number] [address] [place] [address], [place] [address] Mar, [facility] [address] [id number] [address] [place] [address], [place] [address] Mar, [facility] [address] [id number] [address] [place] [address], [place] [address] Mar, [facility] [address] [id number] [address] [place] [address], [place] [address] Mar, [facility] [address] [id number] [address] [place] [address], [place] [address] Feb, [facility] [address] [id number] [address] [place] [address], [place] [address] Feb, [facility] [address] [id number] [address] [place] [address], [place] [address] Jan, [facility] [address] [id number] [address] [place] [address], [place] [address] Jan, [facility] [address] [id number] [address] [place] [address], [place] [address] Jan, [facility] [address] [id number] [address] [place] [address] [address] Jan, [facility] [address] [id number] [address] [place] [address], [place] [address] 14 Dec, 2012 [facility] [address] [id number] [address] [place] [address], [place] [address] 14 Dec, 2012 [facility] [address] [id number] [address] [place] [address], [place] [address] Dec, [facility] [address] [id number] [address] [place] [address], [place] [address] Nov, [facility] [address] [id number] [address] [place] [address], [place] [address] Oct, [facility] [address] [id number] [address] [place] [address], [place] [address] Sep, [facility] [address] [id number] [address] [place] [address], [place] [address] Sep, [facility] [address] [id number] [address] [place] [address], [place] [address] Sep, [facility] [address] [id number] [address] [place] [address], [place] [address] Jun, [facility] [address] [id number] [address] [place] [address], [place] [address] Jun, [facility] [address] [id number] [address] [place] [address], [place] [address] Apr, [facility] [address] [id number] [address] [place] [address] Mar, [facility] [address] [id number] [address] [place] [address], [place] [address] Feb, [facility] [address] [id number] [address] [place] [address] Feb, [facility] [address] [id number] [address] [place] [address] Dec, [facility] [address] [id number] [address] [place] [address], [place] [address] 15 Dec, 2011 [facility] [address] [id number] [address] [place] [address], [place] [address] 04 Dec, 2011 [facility] [address] [id number] [address] [place] [address], [place] [address] 25 Nov, 2011 [facility] [address] [id number] [address] [place] [address], [place] [address] 18 Nov, 2011 [facility] [address] [id number] [address] [place] [address], [place] [address] 30 Oct, 2011 [facility] [address] [id number] [address] [place] [address], [place] [address] 05 Sep, 2011 [facility] [address] [id number] [address] [place] [address], [place] [address] Aug, [facility] [address] [id number] [address] [place] [address], [place] [address] 22 May, 2011 [facility] [address] [id number] [address] [place] [address], [place] [address] May, [facility] [address] [id number] [address] [place] [address], [place] [address] May, [facility] [address] [id number] [address] [place] [address], [place] [address] May, [facility] [address] [id number] [address] [place] [address], [place] [address] 19 May, 2011 [facility] [address] [id number] [address] [place] [address], [place] [address] 16 Apr, 2011 [facility] [address] [id number] [address] [place] [address], [place] [address] 14 Dec, 2010 [facility] [address] [id number] [address] [place] [address], [place] [address] 13 Nov, 2010 [facility] [address] [id number] [address] [place] [address], [place] [address] Feb, [facility] [address] [facility] [id number] [address] [place] [address] Jan, [facility] [address] [facility] [id number] [address] [place] [address] Jan, [facility] [address] [facility] [id number] [address] [place] [address] Jan, [facility] [address] [facility] [id number] [address] [place] [address] Jan, IMMUNIZATIONS No Known Immunizations SOCIAL HISTORY [...]
--- OUTSIDE RECORDS SUMMARY | 2019-07-28 21:43 | XMS REPORT ---
Author Author Bradley Briseno Doctor Organization [facility] Address Unknown Phone Unavailable Care Team Providers Care Hairspring Truer Name Role Phone Migration, Doctor Unavailable Unavailable PROBLEMS Type Condition ICD9-CM Code [id number] Code Onset Dates Condition S tatus SNOMED Code Problem Mood disorder F39 Active 947907 05 Problem Anxiety F41.9 Active 66250172 Problem Hemiplegia, unspecified etio logy, unspecified hemiplegia laterality, unspecified hemiplegia type G81.90 Active 26807525 Problem Left hemiplegia G81.94 Active 2782 87659 Problem Traumatic brain injury with loss of consciousness, sequela S06.9X9S Active 082385053 Problem Other specified glaucoma, unspecified laterality H 40.89 Active 38849758 Problem Other generalized epilepsy, 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, 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 Active 15049900 Problem Wheel chair as ambulatory aid Z99.3 Active 146206802 Problem Seizure disorder G40.909 Active 128 696128 ALLERGIES No Information ENCOUNTERS Encounter Location Date Diagnosis [facility] [address] [id number] [address] [place] [address] Jan, [facility] [address] [facility] [id number] [address] [place] [address] Jan, Anxiety F41.9 ; Wheel chair as ambulatory aid Z99.3 ; Left hemiplegia G81.94 and Encounter for immunization Z23 [facility] [address] [facility] [id number] [address] [place] [address] Jan, [facility] [address] [id number] [address] [place] [id number] Oct, Dental examination Z01.20 [facility] [address] [facility] [id number] [address] [place] [address] Aug, Medicare annual wellness vis it, initial Z00.00 ; Traumatic brain injury with loss of consciousness, sequela S06.9X9S ; Anxiety F41.9 ; Mood disorder F39 ; Other specified glaucoma, unspecified laterality H40.89 ; Hemiplegia, unspecified etiology, unspecified hemiplegia laterality, unspecified hemiplegia type G81.90 ; Other generalized epilepsy, 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ble, 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 ; Left hemiplegia G81.94 and Encounter for immunization Z23 [facility] [address] [facility] [id number] [address] [place] [address] July, Left hemiplegia G81.94 ; Low er extremity edema R60.0 ; Seizure disorder G40.909 and Wheel chair as ambulatory aid Z99.3 [place] [address] [id number] [address] [place] [address] Jan, [place] [address] [facility] [id number] [address] [place] [address] Dec, Dependent edema R60.9 and He miplegia, unspecified etiology, unspecified hemiplegia laterality, unspecified hemiplegia type G81.90 [place] [address] [id number] [address] [place] [address] Aug, Lower extremity edema R60.0 [place] [address] [facility] [id number] [address] [place] [address] July, Wheel chair as ambulatory ai d Z99.3 ; Hemiplegia, unspecified etiology, unspecified hemiplegia laterality, unspecified hemiplegia type G81.90 ; Spinal cord injury of thoracic region without bone injury, sequela S24.109S and Weakness of both lower limbs R29.898 [place] [id number] [id number] [address] [place] [address] Jun, [facility] [address] [id number] [id number] May, [place] [address] [id number] [place] [id number] May, [place] [address] [facility] [id number] [address] [place] [address] Feb, [facility] [address] [id number] [address] [place] [address] Jan, [facility] [address] [facility] [id number] [address] [place] [address] Jan, Traumatic brain injury, with loss of consciousness of unspecified duration, sequela S06.9X9S ; Well adult health check Z00.00 and Other generalized epilepsy, 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ble, 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 [facility] [address] [id number] [address] [place] [address] Jan, [facility] [address] [id number] [address] [place] [address] Nov, [facility] [address] [id number] [address] [place] [address] Jun, [facility] [address] [id number] [address] [place] [address] Jun, [facility] [address] [id number] [address] [place] [address] Apr, [facility] [address] [facility] [id number] [address] [place] [address] Apr, [facility] [address] [facility] [id number] [address] [place] [address] 18 Apr, 2014 [facility] [address] [id number] [address] [place] [address] Apr, [facility] [address] [facility] [id number] [address] [place] [address] Apr, [facility] [address] [facility] [id number] [address] [place] [address] Apr, [facility] [address] [facility] [id number] [address] [place] [address] Apr, [facility] [address] [facility] [id number] [address] [place] [address] Mar, [facility] [address] [id number] [address] [place] [address], [place] [address] Mar, [facility] [address] [id number] [address] [place] [address], [place] [address] Feb, [facility] [address] [id number] [address] [place] [address], [place] [address] Feb, [facility] [address] [id number] [address] [place] [address], [place] [address] Nov, [facility] [address] [id number] [address] [place] [address], [place] [address] Nov, [facility] [address] [id number] [address] [place] [address], [place] [address] Nov, [facility] [address] [id number] [address] [place] [address], [place] [address] Nov, [facility] [address] [id number] [address] [place] [address], [place] [address] Nov, [facility] [address] [id number] [address] [place] [address], [place] [address] Nov, [facility] [address] [id number] [address] [place] [address], [place] [address] Sep, [facility] [address] [id number] [address] [place] [address], [place] [address] Sep, [facility] [address] [id number] [address] [place] [address], [place] [address] Sep, [facility] [address] [id number] [address] [place] [address], [place] [address] Sep, [facility] [address] [id number] [address] [place] [address], [place] [address] Sep, [facility] [address] [id number] [address] [place] [address], [place] [address] Sep, [facility] [address] [id number] [address] [place] [address], [place] [address] Aug, [facility] [address] [id number] [address] [place] [address], [place] [address] Aug, [facility] [address] [id number] [address] [place] [address], [place] [address] July, [facility] [address] [id number] [address] [place] [address], [place] [address] July, [facility] [address] [id number] [address] [place] [address], [place] [address] July, [facility] [address] [id number] [address] [place] [address], [place] [address] July, [facility] [address] [id number] [address] [place] [address], [place] [address] Jun, [facility] [address] [id number] [address] [place] [address], [place] [address] Jun, [facility] [address] [id number] [address] [place] [address], [place] [address] Jun, [facility] [address] [id number] [address] [place] [address], [place] [address] Jun, [facility] [address] [id number] [address] [place] [address], [place] [address] May, [facility] [address] [id number] [address] [place] [address], [place] [address] May, [facility] [address] [id number] [address] [place] [address], [place] [address] Apr, [facility] [address] [id number] [address] [place] [address], [place] [address] Apr, [facility] [address] [id number] [address] [place] [address], [place] [address] Apr, [facility] [address] [id number] [address] [place] [address], [place] [address] Apr, [facility] [address] [id number] [address] [place] [address], [place] [address] 05 Apr, 2013 [facility] [address] [id number] [address] [place] [address], [place] [address] Mar, [facility] [address] [id number] [address] [place] [address], [place] [address] Mar, [facility] [address] [id number] [address] [place] [address], [place] [address] Mar, [facility] [address] [id number] [address] [place] [address], [place] [address] Mar, [facility] [address] [id number] [address] [place] [address], [place] [address] Feb, [facility] [address] [id number] [address] [place] [address], [place] [address] Feb, [facility] [address] [id number] [address] [place] [address], [place] [address] Jan, [facility] [address] [id number] [address] [place] [address], [place] [address] Jan, [facility] [address] [id number] [address] [place] [address], [place] [address] Jan, [facility] [address] [id number] [address] [place] [address], [place] [address] Jan, [facility] [address] [id number] [address] [place] [address], [place] [address] Dec, [facility] [address] [id number] [address] [place] [address], [place] [address] Dec, [facility] [address] [id number] [address] [place] [address], [place] [address] Dec, [facility] [address] [id number] [address] [place] [address], [place] [address] 16 Nov, 2012 [facility] [address] [id number] [address] [place] [address], [place] [address] Oct, [facility] [address] [id number] [address] [place] [address], [place] [address] Sep, [facility] [address] [id number] [address] [place] [address], [place] [address] Sep, [facility] [address] [id number] [address] [place] [address], [place] [address] Sep, [facility] [address] [id number] [address] [place] [address], [place] [address] Jun, [facility] [address] [id number] [address] [place] [address], [place] [address] Jun, [facility] [address] [id number] [address] [place] [address], [place] [address] Apr, [facility] [address] [id number] [address] [place] [address], [place] [address] Mar, [facility] [address] [id number] [address] [place] [address], [place] [address] Feb, [facility] [address] [id number] [address] [place] [address], [place] [address] Feb, [facility] [address] [id number] [address] [place] [address], [place] [address] Dec, [facility] [address] [id number] [address] [place] [address], [place] [address] Dec, [facility] [address] [id number] [address] [place] [address], [place] [address] Dec, [facility] [address] [id number] [address] [place] [address], [place] [address] Nov, [facility] [address] [id number] [address] [place] [address], [place] [address] Nov, [facility] [address] [id number] [address] [place] [address], [place] [address] Oct, [facility] [address] [id number] [address] [place] [address] 05 Sep, 2011 [facility] [address] [id number] [address] [place] [address] Aug, [facility] [address] [id number] [address] [place] [address] May, [facility] [address] [id number] [address] [place] [address] May, [facility] [address] [id number] [address] [place] [address] May, [facility] [address] [id number] [address] [place] [address] May, [facility] [address] [id number] [address] [place] [address] May, [facility] [address] [id number] [address] [place] [address] 16 Apr, 2011 [facility] [address] [id number] [address] [place] [address] 14 Dec, 2010 [facility] [address] [id number] [address] [place] [address] Nov, [facility] [address] [id number] [address] [place] [address] Feb, [facility] [address] [id number] [address] [place] [address] 30 Jan, 2009 [facility] [address] [id number] [address] [place] [address] 24 Jan, 2009 [facility] [address] [id number] [address] [place] [address] 16 Jan, 2009 [facility] [address] [id number] [address] [place] [address] 16 Jan, 2009 IMMUNIZATIONS No Known Immunizations SOCIAL HISTORY Never Assessed REASON FOR VISIT EMR-[facility] PLAN OF CARE VITAL SIGNS MEDICATIONS Unknown [...]
--- OUTSIDE RECORDS SUMMARY | 2019-07-28 21:43 | XMS REPORT ---
Author Author Bradley Briseno Doctor Organization [facility] Address Unknown Phone Unavailable Care Team Providers Care Director Of Brand Marketing Name Role Phone Migration, Doctor Unavailable Unavailable PROBLEMS Type Condition ICD9-CM Code [id number] Code Onset Dates Condition S tatus SNOMED Code Problem Mood disorder F39 Active 231514 05 Problem Anxiety F41.9 Active 35908390 Problem Hemiplegia, unspecified etio logy, unspecified hemiplegia laterality, unspecified hemiplegia type G81.90 Active 01280935 Problem Left hemiplegia G81.94 Active 2782 75623 Problem Traumatic brain injury with loss of consciousness, sequela S06.9X9S Active 662801867 Problem Other specified glaucoma, unspecified laterality H 40.89 Active 97522536 Problem Other generalized epilepsy, 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, 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 Active 24864226 Problem Wheel chair as ambulatory aid Z99.3 Active 123172572 Problem Seizure disorder G40.909 Active 128 659220 ALLERGIES No Information ENCOUNTERS Encounter Location Date Diagnosis [facility] [address] [id number] [address] [place] [phone] Jan, [facility] [address] [facility] [id number] [address] [place] [phone] Jan, Anxiety F41.9 ; Wheel chair as ambulatory aid Z99.3 ; Left hemiplegia G81.94 and Encounter for immunization Z23 [facility] [address] [facility] [id number] [address] [place] [phone] Jan, [facility] [address] [id number] [address] [place] [id number] Oct, Dental examination Z01.20 [facility] [address] [facility] [id number] [address] [place] [phone] Aug, Medicare annual wellness vis it, initial Z00.00 ; Traumatic brain injury with loss of consciousness, sequela S06.9X9S ; Anxiety F41.9 ; Mood disorder F39 ; Other specified glaucoma, unspecified laterality H40.89 ; Hemiplegia, unspecified etiology, unspecified hemiplegia laterality, unspecified hemiplegia type G81.90 ; Other generalized epilepsy, 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ble, 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 ; Left hemiplegia G81.94 and Encounter for immunization Z23 [facility] [address] [facility] [id number] [address] [place] [id number] July, Left hemiplegia G81.94 ; Low er extremity edema R60.0 ; Seizure disorder G40.909 and Wheel chair as ambulatory aid Z99.3 [place] [address] [id number] [address] [place] [phone] Jan, [place] [address] [facility] [id number] [address] [place] [phone] Dec, Dependent edema R60.9 and He miplegia, unspecified etiology, unspecified hemiplegia laterality, unspecified hemiplegia type G81.90 [place] [address] [id number] [address] [place] [phone] Aug, Lower extremity edema R60.0 [place] [address] [facility] [id number] [address] [place] [address] July, Wheel chair as ambulatory ai d Z99.3 ; Hemiplegia, unspecified etiology, unspecified hemiplegia laterality, unspecified hemiplegia type G81.90 ; Spinal cord injury of thoracic region without bone injury, sequela S24.109S and Weakness of both lower limbs R29.898 [place] [address] [id number] [address] [place] [phone] Jun, [facility] [address] [id number] [place] [id number] May, [place] [address] [id number] [place] [id number] May, [place] [address] [facility] [id number] [address] [place] [phone] Feb, [facility] [address] [id number] [address] [place] [phone] Jan, [facility] [address] [facility] [id number] [address] [place] [phone] Jan, Traumatic brain injury, with loss of consciousness of unspecified duration, sequela S06.9X9S ; Well adult health check Z00.00 and Other generalized epilepsy, 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ble, 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 [facility] [address] [id number] [address] [place] [phone] Jan, [facility] [address] [id number] [address] [place] [phone] Nov, [facility] [address] [id number] [address] [place] [phone] Jun, [facility] [address] [id number] [address] [place] [phone] Jun, [facility] [address] [id number] [address] [place] [phone] Apr, [facility] [address] [facility] [id number] [address] [place] [phone] Apr, [facility] [address] [facility] [id number] [address] [place] [phone] 18 Apr, 2014 [facility] [address] [id number] [address] [place] [phone] Apr, [facility] [address] [facility] [id number] [address] [place] [phone] Apr, [facility] [address] [facility] [id number] [address] [place] [phone] Apr, [facility] [address] [facility] [id number] [address] [place] [phone] Apr, [facility] [address] [facility] [id number] [address] [place] [phone] Mar, [facility] [address] [id number] [address] [place] [address], [place] [address] Mar, [facility] [address] [id number] [address] [place] [address], [place] [address] Feb, [facility] [address] [id number] [address] [place] [address], [place] [address] Feb, [facility] [address] [id number] [address] [place] [address], [place] [address] Nov, [facility] [address] [id number] [address] [place] [address], [place] [address] Nov, [facility] [address] [id number] [address] [place] [address], [place] [address] Nov, [facility] [address] [id number] [address] [place] [address], [place] [address] Nov, [facility] [address] [id number] [address] [place] [address], [place] [address] Nov, [facility] [address] [id number] [address] [place] [address], [place] [address] Nov, [facility] [address] [id number] [address] [place] [address], [place] [address] Sep, [facility] [address] [id number] [address] [place] [address], [place] [address] Sep, [facility] [address] [id number] [address] [place] [address], [place] [address] Sep, [facility] [address] [id number] [address] [place] [address], [place] [address] Sep, [facility] [address] [id number] [address] [place] [address], [place] [address] Sep, [facility] [address] [id number] [address] [place] [address], [place] [address] Sep, [facility] [address] [id number] [address] [place] [address], [place] [address] Aug, [facility] [address] [id number] [address] [place] [address], [place] [address] Aug, [facility] [address] [id number] [address] [place] [address], [place] [address] July, [facility] [address] [id number] [address] [place] [address], [place] [address] July, [facility] [address] [id number] [address] [place] [address], [place] [address] July, [facility] [address] [id number] [address] [place] [address], [place] [address] July, [facility] [address] [id number] [address] [place] [address], [place] [address] Jun, [facility] [address] [id number] [address] [place] [address], [place] [address] Jun, [facility] [address] [id number] [address] [place] [address], [place] [address] Jun, [facility] [address] [id number] [address] [place] [address], [place] [address] Jun, [facility] [address] [id number] [address] [place] [address], [place] [address] May, [facility] [address] [id number] [address] [place] [address], [place] [address] May, [facility] [address] [id number] [address] [place] [address], [place] [address] Apr, [facility] [address] [id number] [address] [place] [address], [place] [address] Apr, [facility] [address] [id number] [address] [place] [address], [place] [address] Apr, [facility] [address] [id number] [address] [place] [address], [place] [address] Apr, [facility] [address] [id number] [address] [place] [address], [place] [address] 05 Apr, 2013 [facility] [address] [id number] [address] [place] [address], [place] [address] Mar, [facility] [address] [id number] [address] [place] [address], [place] [address] Mar, [facility] [address] [id number] [address] [place] [address], [place] [address] Mar, [facility] [address] [id number] [address] [place] [address], [place] [address] Mar, [facility] [address] [id number] [address] [place] [address], [place] [address] Feb, [facility] [address] [id number] [address] [place] [address], [place] [address] Feb, [facility] [address] [id number] [address] [place] [address], [place] [address] Jan, [facility] [address] [id number] [address] [place] [address], [place] [address] Jan, [facility] [address] [id number] [address] [place] [address], [place] [address] Jan, [facility] [address] [id number] [address] [place] [address], [place] [address] Jan, [facility] [address] [id number] [address] [place] [address], [place] [address] Dec, [facility] [address] [id number] [address] [place] [address], [place] [address] Dec, [facility] [address] [id number] [address] [place] [address], [place] [address] Dec, [facility] [address] [id number] [address] [place] [address], [place] [address] 16 Nov, 2012 [facility] [address] [id number] [address] [place] [address], [place] [address] Oct, [facility] [address] [id number] [address] [place] [address], [place] [address] Sep, [facility] [address] [id number] [address] [place] [address], [place] [address] Sep, [facility] [address] [id number] [address] [place] [address], [place] [address] Sep, [facility] [address] [id number] [address] [place] [address], [place] [address] Jun, [facility] [address] [id number] [address] [place] [address], [place] [address] Jun, [facility] [address] [id number] [address] [place] [address], [place] [address] Apr, [facility] [address] [id number] [address] [place] [address], [place] [address] Mar, [facility] [address] [id number] [address] [place] [address], [place] [address] Feb, [facility] [address] [id number] [address] [place] [address], [place] [address] Feb, [facility] [address] [id number] [address] [place] [address], [place] [address] Dec, [facility] [address] [id number] [address] [place] [address], [place] [address] Dec, [facility] [address] [id number] [address] [place] [address], [place] [address] Dec, [facility] [address] [id number] [address] [place] [address], [place] [address] Nov, [facility] [address] [id number] [address] [place] [address], [place] [address] Nov, [facility] [address] [id number] [address] [place] [address], [place] [address] Oct, [facility] [address] [id number] [address] [place] [id number] 05 Sep, 2011 [facility] [address] [id number] [address] [place] [phone] Aug, [facility] [address] [id number] [address] [place] [address] May, [facility] [address] [id number] [address] [place] [phone] May, [facility] [address] [id number] [address] [place] [address] May, [facility] [address] [id number] [address] [place] [address] May, [facility] [address] [id number] [address] [place] [address] May, [facility] [address] [id number] [address] [place] [address] 16 Apr, 2011 [facility] [address] [id number] [address] [place] [address] 14 Dec, 2010 [facility] [address] [id number] [address] [place] [phone] Nov, [facility] [address] [id number] [address] [place] [address] Feb, [facility] [address] [id number] [address] [place] [address] 30 Jan, 2009 [facility] [address] [id number] [address] [place] [id number] 24 Jan, 2009 [facility] [address] [id number] [address] [place] [id number] 16 Jan, 2009 [facility] [address] [id number] [address] [place] [id number] 16 Jan, 2009 IMMUNIZATIONS No Known Immunizations SOCIAL HISTORY Never Assessed REASON FOR VISIT EMR-[facility] [place] PLAN OF CARE VITAL SIGNS MEDICATIONS Unknown [...]
--- OUTSIDE RECORDS SUMMARY | 2019-07-28 21:43 | XMS REPORT ---
Author Author Bradley SAENZ [facility] Address [address] [place] [address] Care Team Providers Care Tool Clerk Name Role Phone NIKKI SAENZ Unavailable PROBLEMS Type Condition ICD9-CM Code MTA30-CE Code Onset Dates Condition S tatus SNOMED Code Problem Mood disorder F39 Active 849312 05 Problem Anxiety F41.9 Active 43841717 Problem Hemiplegia, unspecified etio logy, unspecified hemiplegia laterality, unspecified hemiplegia type G81.90 Active 53420259 Problem Left hemiplegia G81.94 Active 2782 57127 Problem Traumatic brain injury with loss of consciousness, sequela S06.9X9S Active 835237825 Problem Other specified glaucoma, unspecified laterality H 40.89 Active 75618883 Problem Other generalized epilepsy, 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, 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 Active 65331789 Problem Wheel chair as ambulatory aid Z99.3 Active 840521303 Problem Seizure disorder G40.909 Active 128 616908 ALLERGIES No Information ENCOUNTERS Encounter Location Date Diagnosis [place] [address] [facility] [id number] [address] [place] [phone] Sep, [place] [address] [facility] [id number] [address] [place] [address] Aug, Rash R21 [facility] [employer] [address] [address] Aug, Ringworm B35.9 [facility] [address] [facility] [id number] [address] [place] [address] July, [place] [address] [facility] [id number] [address] [place] [address] July, [place] [address] [facility] [id number] [address] [place] [address] Jan, [facility] [address] [facility] [id number] [address] [place] [address] Jan, Anxiety F41.9 ; Wheel chair as ambulatory aid Z99.3 ; Left hemiplegia G81.94 and Encounter for immunization Z23 [facility] [address] [facility] [id number] [address] [place] [address] Jan, [facility] [address] [id number] [address] [place] [id number] Oct, Dental examination Z01.20 [facility] [address] [facility] [id number] [address] [place] [address] Aug, Medicare annual wellness vis it, initial Z00.00 ; Traumatic brain injury with loss of consciousness, sequela S06.9X9S ; Anxiety F41.9 ; Mood disorder F39 ; Other specified glaucoma, unspecified laterality H40.89 ; Hemiplegia, unspecified etiology, unspecified hemiplegia laterality, unspecified hemiplegia type G81.90 ; Other generalized epilepsy, 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ble, 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 ; Left hemiplegia G81.94 and Encounter for immunization Z23 [place] [address] [facility] [id number] [address] [place] [address] July, Left hemiplegia G81.94 ; Low er extremity edema R60.0 ; Seizure disorder G40.909 and Wheel chair as ambulatory aid Z99.3 [place] [address] [facility] [id number] [address] [place] [address] Jan, [facility] [address] [place] [id number] [address] [place] [address] Dec, Dependent edema R60.9 and He miplegia, unspecified etiology, unspecified hemiplegia laterality, unspecified hemiplegia type G81.90 [place] [address] [facility] [id number] [address] [place] [address] Aug, Lower extremity edema R60.0 [place] [address] [facility] [id number] [address] [place] [address] July, Wheel chair as ambulatory ai d Z99.3 ; Hemiplegia, unspecified etiology, unspecified hemiplegia laterality, unspecified hemiplegia type G81.90 ; Spinal cord injury of thoracic region without bone injury, sequela S24.109S and Weakness of both lower limbs R29.898 [facility] [address] [facility] [id number] [address] [place] [address] Jun, [facility] [address] [id number] [place] [id number] May, [facility] [address] [id number] [place] [id number] May, [facility] [address] [facility] [id number] [address] [place] [phone] Feb, [facility] [address] [facility] [id number] [address] [place] [address] Jan, [facility] [address] [facility] [id number] [address] [place] [address] Jan, Traumatic brain injury, with loss of consciousness of unspecified duration, sequela S06.9X9S ; Well adult health check Z00.00 and Other generalized epilepsy, 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ble, 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 [facility] [address] [facility] [id number] [address] [place] [address] Jan, [facility] [address] [facility] [id number] [address] [place] [address] Nov, [facility] [address] [facility] [id number] [address] [place] [address] Jun, [facility] [address] [facility] [id number] [address] [place] [address] Jun, [facility] [address] [facility] [id number] [address] [place] [phone] Apr, [facility] [address] [facility] [id number] [address] [place] [address] Apr, [facility] [address] [id number] [address] [place] [address], [place] [address] 18 Apr, 2014 [facility] [address] [id number] [address] [place] [address], [place] [address] Apr, 2014 [facility] [address] [id number] [address] [place] [address], [place] [address] Apr, 2014 [facility] [address] [id number] [address] [place] [address], [place] [address] Apr, 2014 [facility] [address] [id number] [address] [place] [address], [place] [address] Apr, [facility] [address] [id number] [address] [place] [address], [place] [address] Mar, [facility] [address] [id number] [address] [place] [address], [place] [address] Mar, [facility] [address] [id number] [address] [place] [address], [place] [address] Feb, [facility] [address] [id number] [address] [place] [address], [place] [address] Feb, [facility] [address] [id number] [address] [place] [address], [place] [address] 26 Nov, 2013 [facility] [address] [id number] [address] [place] [address], [place] [address] 26 Nov, 2013 [facility] [address] [id number] [address] [place] [address], [place] [address] 10 Nov, 2013 [facility] [address] [id number] [address] [place] [address], [place] [address] 10 Nov, 2013 [facility] [address] [id number] [address] [place] [address], [place] [address] 10 Nov, 2013 [facility] [address] [id number] [address] [place] [address], [place] [address] 10 Nov, 2013 [facility] [address] [id number] [address] [place] [address], [place] [address] Sep, [facility] [address] [id number] [address] [place] [address], [place] [address] Sep, [facility] [address] [id number] [address] [place] [address], [place] [address] Sep, [facility] [address] [id number] [address] [place] [address], [place] [address] Sep, [facility] [address] [id number] [address] [place] [address], [place] [address] Sep, [facility] [address] [id number] [address] [place] [address], [place] [address] Sep, [facility] [address] [id number] [address] [place] [address], [place] [address] Aug, [facility] [address] [id number] [address] [place] [address], [place] [address] Aug, [facility] [address] [id number] [address] [place] [address], [place] [address] July, [facility] [address] [id number] [address] [place] [address], [place] [address] July, [facility] [address] [id number] [address] [place] [address], [place] [address] July, [facility] [address] [id number] [address] [place] [address], [place] [address] July, [facility] [address] [id number] [address] [place] [address], [place] [address] Jun, [facility] [address] [id number] [address] [place] [address], [place] [address] Jun, [facility] [address] [id number] [address] [place] [address], [place] [address] Jun, [facility] [address] [id number] [address] [place] [address], [place] [address] Jun, [facility] [address] [id number] [address] [place] [address], [place] [address] May, [facility] [address] [id number] [address] [place] [address], [place] [address] May, [facility] [address] [id number] [address] [place] [address], [place] [address] Apr, [facility] [address] [id number] [address] [place] [address], [place] [address] Apr, [facility] [address] [id number] [address] [place] [address], [place] [address] Apr, [facility] [address] [id number] [address] [place] [address], [place] [address] Apr, [facility] [address] [id number] [address] [place] [address], [place] [address] Apr, [facility] [address] [id number] [address] [place] [address], [place] [address] Mar, [facility] [address] [id number] [address] [place] [address], [place] [address] Mar, [facility] [address] [id number] [address] [place] [address], [place] [address] Mar, [facility] [address] [id number] [address] [place] [address], [place] [address] Mar, [facility] [address] [id number] [address] [place] [address], [place] [address] Feb, [facility] [address] [id number] [address] [place] [address], [place] [address] Feb, [facility] [address] [id number] [address] [place] [address], [place] [address] Jan, [facility] [address] [id number] [address] [place] [address], [place] [address] Jan, [facility] [address] [id number] [address] [place] [address] [address] Jan, [facility] [address] [id number] [address] [place] [address], [place] [address] Jan, [facility] [address] [id number] [address] [place] [address], [place] [address] Dec, [facility] [address] [id number] [address] [place] [address], [place] [address] Dec, [facility] [address] [id number] [address] [place] [address], [place] [address] Dec, [facility] [address] [id number] [address] [place] [address], [place] [address] Nov, [facility] [address] [id number] [address] [place] [address], [place] [address] Oct, [facility] [address] [id number] [address] [place] [address], [place] [address] Sep, [facility] [address] [id number] [address] [place] [address], [place] [address] Sep, [facility] [address] [id number] [address] [place] [address], [place] [address] Sep, [facility] [address] [id number] [address] [place] [address], [place] [address] Jun, [facility] [address] [id number] [address] [place] [address], [place] [address] Jun, [facility] [address] [id number] [address] [place] [address] Apr, [facility] [address] [id number] [address] [place] [address], [place] [address] Mar, [facility] [address] [id number] [address] [place] [address] Feb, [facility] [address] [id number] [address] [place] [id number] Feb, [facility] [address] [id number] [address] [place] [address], [place] [address] 15 Dec, 2011 [facility] [address] [id number] [address] [place] [address], [place] [address] 15 Dec, 2011 [facility] [address] [id number] [address] [place] [address], [place] [address] 04 Dec, 2011 [facility] [address] [id number] [address] [place] [address], [place] [address] 25 Nov, 2011 [facility] [address] [id number] [address] [place] [address], [place] [address] 18 Nov, 2011 [facility] [address] [id number] [address] [place] [address], [place] [address] 30 Oct, 2011 [facility] [address] [id number] [address] [place] [address], [place] [address] Sep, [facility] [address] [id number] [address] [place] [address], [place] [address] Aug, [facility] [address] [id number] [address] [place] [address], [place] [address] May, [facility] [address] [id number] [address] [place] [address], [place] [address] May, [facility] [address] [id number] [address] [place] [address], [place] [address] May, [facility] [address] [id number] [address] [place] [address], [place] [address] May, [facility] [address] [id number] [address] [place] [address], [place] [address] 19 May, 2011 [facility] [address] [id number] [address] [place] [address], [place] [address] 16 Apr, 2011 [facility] [address] [id number] [address] [place] [address], [place] [address] 14 Dec, 2010 [facility] [address] [id number] [address] [place] [address], [place] [address] 13 Nov, 2010 [facility] [address] [facility] [id number] [address] [place] [address] Feb, [facility] [address] [facility] [id number] [address] [place] [address] Jan, [facility] [address] [facility] [id number] [address] [place] [id number] Jan, [facility] [address] [facility] [id number] [address] [place] [id number] Jan, [facility] [address] [facility] [id number] [address] [place] [address] Jan, IMMUNIZATIONS No Known Immunizations SOCIAL HISTORY [...]
--- OUTSIDE RECORDS SUMMARY | 2019-07-28 21:43 | XMS REPORT ---
Author Author Bradley SAENZ [facility] Address [address] [place] [address] Care Team Providers Care Insulation Helper Name Role Phone NIKKI SAENZ Unavailable PROBLEMS Type Condition ICD9-CM Code ZHK03-NQ Code Onset Dates Condition S tatus SNOMED Code Problem Mood disorder F39 Active 606222 05 Problem Anxiety F41.9 Active 54524032 Problem Hemiplegia, unspecified etio logy, unspecified hemiplegia laterality, unspecified hemiplegia type G81.90 Active 11814619 Problem Left hemiplegia G81.94 Active 2782 76529 Problem Traumatic brain injury with loss of consciousness, sequela S06.9X9S Active 283318249 Problem Other specified glaucoma, unspecified laterality H 40.89 Active 68588942 Problem Other generalized epilepsy, 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, 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 Active 07306566 Problem Wheel chair as ambulatory aid Z99.3 Active 809249039 Problem Seizure disorder G40.909 Active 128 226136 ALLERGIES No Information ENCOUNTERS Encounter Location Date Diagnosis [facility] [address] [facility] [id number] [address] [place] [address] Aug, Rash R21 Gran [employer] [address] [place] [address] Aug, Ringworm B35.9 [facility] [address] [facility] [id number] [address] [place] [address] July, [facility] [address] [facility] [id number] [address] [place] [address] July, [facility] [address] [facility] [id number] [address] [place] [id number] Jan, [facility] [address] [facility] [id number] [address] [place] [address] Jan, Anxiety F41.9 ; Wheel chair as ambulatory aid Z99.3 ; Left hemiplegia G81.94 and Encounter for immunization Z23 [facility] [address] [facility] [id number] [address] [place] [id number] Jan, [facility] [address] [id number] [address] [place] [id number] Oct, Dental examination Z01.20 [facility] [address] [facility] [id number] [address] [place] [address] Aug, Medicare annual wellness vis it, initial [...] immunization Z23 [facility] [address] [place] [id number] [address] [place] [phone] July, Left hemiplegia G81.94 ; Low er extremity edema R60.0 ; Seizure disorder G40.909 and Wheel chair as ambulatory aid Z99.3 [place] [address] [place] [id number] [address] [place] [address] Jan, [place] [address] [place] [id number] [address] [place] [address] Dec, Dependent edema R60.9 and He miplegia, unspecified etiology, unspecified hemiplegia laterality, unspecified hemiplegia type G81.90 [place] [address] [facility] [id number] [address] [place] [address] Aug, Lower extremity edema R60.0 [place] [address] [facility] [id number] [address] [place] [address] July, Wheel chair as ambulatory ai d Z99.3 ; Hemiplegia, unspecified etiology, unspecified hemiplegia laterality, unspecified hemiplegia type G81.90 ; Spinal cord injury of thoracic region without bone injury, sequela S24.109S and Weakness of both lower limbs R29.898 [facility] [address] [id number] [address] [place] [address] Jun, [facility] [address] [id number] [place] [id number] May, [facility] [address] [id number] [place] [id number] May, [facility] [address] [id number] [address] [place] [phone] Feb, [facility] [address] [id number] [address] [place] [address] 30 Jan, 2016 [facility] [address] [id number] [address] [place] [phone] 16 Jan, 2016 Traumatic brain injury, with loss of consciousness of unspecified duration, sequela S06.9X9S ; Well adult health check Z00.00 and Other generalized epilepsy, 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ble, 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 [facility] [address] [id number] [address] [place] [phone] Jan, [facility] [address] [id number] [address] [place] [phone] 28 Nov, 2014 [facility] [address] [id number] [address] [place] [phone] Jun, [facility] [address] [id number] [address] [place] [phone] Jun, [facility] [address] [id number] [address] [place] [address] Apr, [facility] [address] [id number] [address] [place] [address] Apr, [facility] [address] [id number] [address] [place] [phone] 18 Apr, 2014 [facility] [address] [id number] [address] [place] [address], [place] [address] Apr, 2014 [facility] [address] [id number] [address] [place] [address], [place] [address] Apr, 2014 [facility] [address] [id number] [address] [place] [address], [place] [address] Apr, 2014 [facility] [address] [id number] [address] [place] [address], [place] [address] Apr, [facility] [address] [id number] [address] [place] [address], [place] [address] Mar, [facility] [address] [id number] [address] [place] [address], [place] [address] Mar, [facility] [address] [id number] [address] [place] [address], [place] [address] Feb, [facility] [address] [id number] [address] [place] [address], [place] [address] Feb, [facility] [address] [id number] [address] [place] [address], [place] [address] Nov, [facility] [address] [id number] [address] [place] [address], [place] [address] Nov, [facility] [address] [id number] [address] [place] [address], [place] [address] 10 Nov, 2013 [facility] [address] [id number] [address] [place] [address], [place] [address] Nov, [facility] [address] [id number] [address] [place] [address], [place] [address] 10 Nov, 2013 [facility] [address] [id number] [address] [place] [address], [place] [address] Nov, [facility] [address] [id number] [address] [place] [address], [place] [address] Sep, [facility] [address] [id number] [address] [place] [address], [place] [address] Sep, [facility] [address] [id number] [address] [place] [address], [place] [address] Sep, [facility] [address] [id number] [address] [place] [address], [place] [address] Sep, [facility] [address] [id number] [address] [place] [address], [place] [address] Sep, [facility] [address] [id number] [address] [place] [address], [place] [address] Sep, [facility] [address] [id number] [address] [place] [address], [place] [address] Aug, [facility] [address] [id number] [address] [place] [address], [place] [address] Aug, [facility] [address] [id number] [address] [place] [address], [place] [address] July, [facility] [address] [id number] [address] [place] [address], [place] [address] July, [facility] [address] [id number] [address] [place] [address], [place] [address] July, [facility] [address] [id number] [address] [place] [address], [place] [address] July, [facility] [address] [id number] [address] [place] [address], [place] [address] Jun, [facility] [address] [id number] [address] [place] [address], [place] [address] Jun, [facility] [address] [id number] [address] [place] [address], [place] [address] Jun, [facility] [address] [id number] [address] [place] [address], [place] [address] Jun, [facility] [address] [id number] [address] [place] [address], [place] [address] May, [facility] [address] [id number] [address] [place] [address], [place] [address] May, [facility] [address] [id number] [address] [place] [address], [place] [address] Apr, [facility] [address] [id number] [address] [place] [address], [place] [address] Apr, [facility] [address] [id number] [address] [place] [address], [place] [address] Apr, [facility] [address] [id number] [address] [place] [address], [place] [address] Apr, [facility] [address] [id number] [address] [place] [address], [place] [address] Apr, [facility] [address] [id number] [address] [place] [address], [place] [address] Mar, [facility] [address] [id number] [address] [place] [address], [place] [address] Mar, [facility] [address] [id number] [address] [place] [address], [place] [address] Mar, [facility] [address] [id number] [address] [place] [address], [place] [address] Mar, [facility] [address] [id number] [address] [place] [address], [place] [address] Feb, [facility] [address] [id number] [address] [place] [address], [place] [address] Feb, [facility] [address] [id number] [address] [place] [address], [place] [address] Jan, [facility] [address] [id number] [address] [place] [address], [place] [address] Jan, [facility] [address] [id number] [address] [place] [address], [place] [address] Jan, [facility] [address] [id number] [address] [place] [address], [place] [address] Jan, [facility] [address] [id number] [address] [place] [address], [place] [address] 14 Dec, 2012 [facility] [address] [id number] [address] [place] [address], [place] [address] 14 Dec, 2012 [facility] [address] [id number] [address] [place] [address], [place] [address] Dec, [facility] [address] [id number] [address] [place] [address], [place] [address] Nov, [facility] [address] [id number] [address] [place] [address], [place] [address] Oct, [facility] [address] [id number] [address] [place] [address], [place] [address] Sep, [facility] [address] [id number] [address] [place] [address], [place] [address] Sep, [facility] [address] [id number] [address] [place] [address], [place] [address] Sep, [facility] [address] [id number] [address] [place] [address], [place] [address] Jun, [facility] [address] [id number] [address] [place] [address], [place] [address] Jun, [facility] [address] [id number] [address] [place] [address], [place] [address] Apr, [facility] [address] [id number] [address] [place] [address] Mar, [facility] [address] [id number] [address] [place] [address], [place] [address] Feb, [facility] [address] [id number] [address] [place] [address] Feb, [facility] [address] [id number] [address] [place] [address] Dec, [facility] [address] [id number] [address] [place] [address], [place] [address] 15 Dec, 2011 [facility] [address] [id number] [address] [place] [address], [place] [address] 04 Dec, 2011 [facility] [address] [id number] [address] [place] [address], [place] [address] 25 Nov, 2011 [facility] [address] [id number] [address] [place] [address], [place] [address] 18 Nov, 2011 [facility] [address] [id number] [address] [place] [address], [place] [address] 30 Oct, 2011 [facility] [address] [id number] [address] [place] [address], [place] [address] 05 Sep, 2011 [facility] [address] [id number] [address] [place] [address], [place] [address] Aug, [facility] [address] [id number] [address] [place] [address], [place] [address] 22 May, 2011 [facility] [address] [id number] [address] [place] [address], [place] [address] May, [facility] [address] [id number] [address] [place] [address], [place] [address] May, [facility] [address] [id number] [address] [place] [address], [place] [address] May, [facility] [address] [id number] [address] [place] [address], [place] [address] 19 May, 2011 [facility] [address] [id number] [address] [place] [address], [place] [address] 16 Apr, 2011 [facility] [address] [id number] [address] [place] [address], [place] [address] 14 Dec, 2010 [facility] [address] [id number] [address] [place] [address], [place] [address] 13 Nov, 2010 [facility] [address] [id number] [address] [place] [address], [place] [address] Feb, [facility] [address] [facility] [id number] [address] [place] [address] Jan, [facility] [address] [facility] [id number] [address] [place] [address] Jan, [facility] [address] [facility] [id number] [address] [place] [address] Jan, [facility] [address] [facility] [id number] [address] [place] [address] Jan, IMMUNIZATIONS No Known Immunizations SOCIAL HISTORY [...]
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
--- OUTSIDE RECORDS SUMMARY | 2019-07-28 21:44 | XMS REPORT ---
Author Author Bradley BATES Organization [facility] Address [address] [place] [address] Care Team Providers Care Superintendent Division Name Role Phone ADRIANO BATES Unavailable PROBLEMS Type Condition ICD9-CM Code HUO88-XK Code Onset Dates Condition S tatus SNOMED Code Problem Anxiety F41.9 Active 50893970 Problem Mood disorder F39 Active 814034 05 Problem Seizure disorder G40.909 Active 128 283447 Problem Left hemiplegia G81.94 Active 2782 02123 Problem Other specified glaucoma, unspecified laterality H 40.89 Active 13273924 Problem Hemiplegia, unspecified etio logy, unspecified hemiplegia laterality, unspecified hemiplegia type G81.90 Active 27939828 Problem Wheel chair as ambulatory aid Z99.3 Active 543029707 Problem Other generalized epilepsy, 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, 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 Active 48104181 ALLERGIES No Known Allergies ENCOUNTERS Encounter Location Date Diagnosis [facility] [address] [facility] [id number] [address] [place] [phone] Aug, Medicare annual wellness vis it, initial Z00.00 ; Encounter for immunization Z23 ; Anxiety F41.9 ; Mood disorder F39 ; Other specified glaucoma, unspecified laterality H40.89 ; Hemiplegia, unspecified etiology, unspecified hemiplegia laterality, unspecified hemiplegia type G81.90 ; Other generalized epilepsy, 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ble, 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 and Left hemiplegia G81.94 [facility] [address] [facility] [id number] [address] [place] [phone] July, Left hemiplegia G81.94 ; Low er extremity edema R60.0 ; Seizure disorder G40.909 and Wheel chair as ambulatory aid Z99.3 [facility] [address] [facility] [id number] [address] [place] [id number] Jan, [facility] [address] [id number] [address] [place] [phone] Dec, Dependent edema R60.9 and He miplegia, unspecified etiology, unspecified hemiplegia laterality, unspecified hemiplegia type G81.90 [facility] [address] [id number] [address] [place] [phone] Aug, Lower extremity edema R60.0 [facility] [address] [id number] [address] [place] [phone] July, Wheel chair as ambulatory ai d Z99.3 ; Hemiplegia, unspecified etiology, unspecified hemiplegia laterality, unspecified hemiplegia type G81.90 ; Spinal cord injury of thoracic region without bone injury, sequela S24.109S and Weakness of both lower limbs R29.898 [facility] [address] [place] [id number] [address] [place] [phone] Jun, [facility] [address] [id number] [place] [id number] May, [facility] [address] [id number] [facility] [id number] May, [facility] [address] [place] [id number] [address] [place] [phone] Feb, [facility] [address] [facility] [id number] [address] [place] [phone] Jan, [facility] [address] [place] [id number] [address] [place] [phone] 16 Jan, 2016 Traumatic brain injury, with loss of consciousness of unspecified duration, sequela S06.9X9S ; Well adult health check Z00.00 and Other generalized epilepsy, 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ble, 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 [facility] [address] [facility] [id number] [address] [place] [id number] 15 Jan, 2016 [facility] [address] [facility] [id number] [address] [place] [phone] Nov, [facility] [address] [id number] [address] [place] [address], [place] [id number] 14 Jun, 2014 [facility] [address] [id number] [address] [place] [address], [place] [id number] 13 Jun, 2014 [facility] [address] [id number] [address] [place] [address], [place] [id number] 19 Apr, 2014 [facility] [address] [id number] [address] [place] [address], [place] [id number] Apr, 2014 [facility] [address] [id number] [address] [place] [address], [place] [id number] 18 Apr, 2014 [facility] [address] [id number] [address] [place] [address], [place] [id number] Apr, 2014 [facility] [address] [id number] [address] [place] [address], [place] [phone] Apr, [facility] [address] [id number] [address] [place] [address], [place] [id number] Apr, [facility] [address] [id number] [address] [place] [address], [place] [id number] Apr, [facility] [address] [id number] [address] [place] [address], [place] [id number] Mar, [facility] [address] [id number] [address] [place] [address], [place] [id number] Mar, [facility] [address] [id number] [address] [place] [address], [place] [id number] Feb, [facility] [address] [id number] [address] [place] [address], [place] [id number] Feb, [facility] [address] [id number] [address] [place] [address], [place] [address] Nov, [facility] [address] [id number] [address] [place] [address], [place] [address] Nov, [facility] [address] [id number] [address] [place] [address], [place] [address] Nov, [facility] [address] [id number] [address] [place] [address], [place] [address] Nov, [facility] [address] [id number] [address] [place] [address], [place] [address] Nov, [facility] [address] [id number] [address] [place] [address], [place] [id number] Nov, [facility] [address] [id number] [address] [place] [address], [place] [address] Sep, [facility] [address] [id number] [address] [place] [address], [place] [address] Sep, [facility] [address] [id number] [address] [place] [address], [place] [id number] Sep, [facility] [address] [id number] [address] [place] [address], [place] [id number] Sep, [facility] [address] [id number] [address] [place] [address], [place] [address] Sep, [facility] [address] [id number] [address] [place] [address], [place] [address] Sep, [facility] [address] [id number] [address] [place] [address], [place] [address] Aug, [facility] [address] [id number] [address] [place] [address], [place] [address] Aug, [facility] [address] [id number] [address] [place] [address], [place] [address] July, [facility] [address] [id number] [address] [place] [address], [place] [id number] July, [facility] [address] [id number] [address] [place] [address], [place] [address] July, [facility] [address] [id number] [address] [place] [address], [place] [address] July, [facility] [address] [id number] [address] [place] [address], [place] [id number] Jun, [facility] [address] [id number] [address] [place] [address], [place] [address] Jun, [facility] [address] [id number] [address] [place] [address], [place] [id number] Jun, [facility] [address] [id number] [address] [place] [address], [place] [id number] Jun, [facility] [address] [id number] [address] [place] [address], [place] [address] May, [facility] [address] [id number] [address] [place] [address], [place] [id number] May, [facility] [address] [id number] [address] [place] [address], [place] [id number] Apr, [facility] [address] [id number] [address] [place] [address], [place] [address] Apr, [facility] [address] [id number] [address] [place] [address], [place] [id number] Apr, [facility] [address] [id number] [address] [place] [address], [place] [address] Apr, [facility] [address] [id number] [address] [place] [address], [place] [id number] Apr, [facility] [address] [id number] [address] [place] [address], [place] [address] Mar, [facility] [address] [id number] [address] [place] [address], [place] [id number] Mar, [facility] [address] [id number] [address] [place] [address], [place] [address] Mar, [facility] [address] [id number] [address] [place] [address], [place] [address] Mar, [facility] [address] [id number] [address] [place] [address], [place] [id number] 05 Feb, 2013 [facility] [address] [id number] [address] [place] [address], [place] [address] Feb, [facility] [address] [id number] [address] [place] [address], [place] [address] Jan, [facility] [address] [id number] [address] [place] [address], [place] [address] Jan, [facility] [address] [id number] [address] [place] [address], [place] [address] Jan, [facility] [address] [id number] [address] [place] [address], [place] [address] Jan, [facility] [address] [id number] [address] [place] [address], [place] [address] Dec, [facility] [address] [id number] [address] [place] [address], [place] [address] Dec, [facility] [address] [id number] [address] [place] [address], [place] [address] Dec, [facility] [address] [id number] [address] [place] [address], [place] [address] Nov, [facility] [address] [id number] [address] [place] [address], [place] [address] Oct, [facility] [address] [id number] [address] [place] [address], [place] [address] Sep, [facility] [address] [id number] [address] [place] [address], [place] [address] Sep, [facility] [address] [id number] [address] [place] [address], [place] [address] Sep, [facility] [address] [id number] [address] [place] [address], [place] [address] Jun, [facility] [address] [id number] [address] [place] [address], [place] [address] Jun, [facility] [address] [id number] [address] [place] [address], [place] [address] 15 Apr, 2012 [facility] [address] [id number] [address] [place] [address], [place] [address] Mar, [facility] [address] [id number] [address] [place] [address], [place] [address] Feb, [facility] [address] [id number] [address] [place] [address], [place] [address] Feb, [facility] [address] [id number] [address] [place] [address], [place] [address] Dec, [facility] [address] [id number] [address] [place] [address], [place] [address] Dec, [facility] [address] [id number] [address] [place] [address], [place] [address] Dec, [facility] [address] [id number] [address] [place] [address], [place] [address] Nov, [facility] [address] [id number] [address] [place] [address], [place] [address] Nov, [facility] [address] [id number] [address] [place] [address], [place] [address] Oct, [facility] [address] [id number] [address] [place] [address], [place] [address] Sep, [facility] [address] [id number] [address] [place] [address], [place] [address] Aug, [facility] [address] [id number] [address] [place] [address], [place] [address] May, [facility] [address] [id number] [address] [place] [address], [place] [address] May, [facility] [address] [id number] [address] [place] [address], [place] [address] May, [facility] [address] [id number] [address] [place], [place] [address] [address] May, [facility] [address] [id number] [address] [place] [phone] May, [facility] [address] [id number] [address] [place] [phone] Apr, [facility] [address] [facility] [id number] [address] [place] [phone] Dec, [facility] [address] [id number] [address] [place] [phone] Nov, [facility] [address] [id number] [address] [place] [phone] Feb, [facility] [address] [facility] [id number] [address] [place] [id number] Jan, [facility] [address] [facility] [id number] [address] [place] [phone] Jan, [facility] [address] [facility] [id number] [address] [place] [phone] Jan, [facility] [address] [facility] [id number] [address] [place] [phone] Jan, IMMUNIZATIONS Vaccine Route Administration Date Status FLUARIX QUAD (3 AND UP) 2016 IM Intramuscular Jan 14, 2017 Ad ministered SOCIAL HISTORY Never Assessed REASON FOR VISIT Water retention--[id number] CARLOS PLAN OF CARE Activity Details Follow Up 3 Months with Josy Grover on: VITAL SIGNS Height 74 in 2017-01-14 Temperature 98.0 degrees Fahrenheit 2017-01-14 Heart Rate 84 bpm 2017-01-14 Respiratory Rate 20 2017-01-14 Blood pressure systolic 124 mmHg 2017-01-14 Blood pressure diastolic 86 mmHg 2017-01-14 MEDICATIONS Medication Instructions Dosage Frequency Start Date End Date Duration S tatus Centrum Silver - Active Alphagan P 0.15 % Ophthalmic Three times a day 1 drop into affected ey e 8h Active Calcium-Vitamin D 600-400 MG-UNIT Active Keppra 250 MG Orally Twice a day 1 tablet 12h Active Keppra 1,000 mg 1 Tablet by Oral route 3 times per day 1 3 Jul, 2013 Active Mucinex Maximum Strength 1200 MG Orally every 12 hrs 1 tablet as neede d 12h Active Depakote 500 mg Orally 2 times a day 1 tablet 12h Active Docusate Sodium 100 mg take 1 capsule (100 mg) b y oral route 2 times per day Jan, Active Effexor XR 150 MG Orally Once a day 1 capsule with food 24h Active Vitamin C 1000 MG Orally Once a day 1 tablet 24h Active RESULTS No Results PROCEDURES Procedure Date Ordered Result Body Site FLUARIX QUAD (3 AND UP) 2016Jan 14, 2017 SINGLE IMMUNIZATION ADMIN Jan 14, 2017 [facility] VISIT ESTABLISHED PATIENT Jan 14, 2017 INSTRUCTIONS MEDICATIONS ADMINISTERED No Known Medications [...]
--- OUTSIDE RECORDS SUMMARY | 2019-07-28 21:44 | XMS REPORT ---
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
--- OUTSIDE RECORDS SUMMARY | 2019-07-28 21:44 | XMS REPORT ---
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
--- OUTSIDE RECORDS SUMMARY | 2019-07-28 21:44 | XMS REPORT ---
Author Author Bradley BATES Organization [facility] Address [address] [place] [address] Care Team Providers Care Thermostat Machine Tender Name Role Phone ADRIANO BATES Unavailable PROBLEMS Type Condition ICD9-CM Code [id number] Code Onset Dates Condition S tatus SNOMED Code Problem Mood disorder F39 Active 566791 05 Problem Hemiplegia, unspecified etio logy, unspecified hemiplegia laterality, unspecified hemiplegia type G81.90 Active 43413749 Problem Anxiety F41.9 Active 22112390 Problem Traumatic brain injury with loss of consciousness, sequela S06.9X9S Active 928639967 Problem Left hemiplegia G81.94 Active 2782 77544 Problem Other generalized epilepsy, 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, 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 Active 43405321 Problem Other specified glaucoma, unspecified laterality H 40.89 Active 67104231 Problem Seizure disorder G40.909 Active 128 131036 Problem Wheel chair as ambulatory aid Z99.3 Active [id number] ALLERGIES No Information ENCOUNTERS Encounter Location Date Diagnosis [facility] [address] [id number] [place] [address] Jan, [facility] [id number] [place] [address] Jan, [facility] [address] [facility] [id number] [address] [place] [id number] Oct, Dental examination Z01.20 [facility] [id number] [place] [address] Aug, Medicare annual wellness vis it, initial Z00.00 ; Traumatic brain injury with loss of consciousness, sequela S06.9X9S ; Anxiety F41.9 ; Mood disorder F39 ; Other specified glaucoma, unspecified laterality H40.89 ; Hemiplegia, unspecified etiology, unspecified hemiplegia laterality, unspecified hemiplegia type G81.90 ; Other generalized epilepsy, 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ble, 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 ; Left hemiplegia G81.94 and Encounter for immunization Z23 [place] [address] [id number] [address] [place] [address] July, Left hemiplegia G81.94 ; Low er extremity edema R60.0 ; Seizure disorder G40.909 and Wheel chair as ambulatory aid Z99.3 [place] [address] [id number] [address] [place] [phone] Jan, [place] [address] [id number] [address] [place] [address] Dec, Dependent edema R60.9 and He miplegia, unspecified etiology, unspecified hemiplegia laterality, unspecified hemiplegia type G81.90 [place] [address] [id number] [address] [place] [address] Aug, Lower extremity edema R60.0 [place] [id number] [address] [place] [address] July, Wheel chair as ambulatory ai d Z99.3 ; Hemiplegia, unspecified etiology, unspecified hemiplegia laterality, unspecified hemiplegia type G81.90 ; Spinal cord injury of thoracic region without bone injury, sequela S24.109S and Weakness of both lower limbs R29.898 [place] [address] [facility] [id number] [address] [place] [address] Jun, [place] [address] [id number] [place] [id number] May, [facility] [place] [address] [id number] [place] [id number] May, [place] [address] [facility] [id number] [address] [place] [phone] Feb, [place] [address] [facility] [id number] [address] [place] [phone] Jan, [place] [address] [id number] [address] [place] [address] 16 Jan, 2016 Traumatic brain injury, with loss of consciousness of unspecified duration, sequela S06.9X9S ; Well adult health check Z00.00 and Other generalized epilepsy, 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ble, 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 [facility] [address] [id number] [address] [place] [phone] 15 Jan, 2016 [facility] [address] [id number] [address] [place] [phone] 28 Nov, 2014 [facility] [address] [id number] [address] [place] [address] 14 Jun, 2014 [facility] [address] [id number] [address] [place] [address] Jun, [facility] [address] [id number] [address] [place] [address] Apr, [facility] [address] [id number] [address] [place] [phone] Apr, [facility] [address] [id number] [address] [place] [address] Apr, [facility] [address] [id number] [address] [place] [phone] Apr, [facility] [address] [id number] [address] [place] [address] Apr, [facility] [address] [id number] [address] [place] [address] Apr, [facility] [address] [id number] [address] [place] [address] Apr, [facility] [address] [id number] [address] [place] [address] Mar, [facility] [address] [id number] [address] [place] [address] Mar, [facility] [address] [id number] [facility] [place] [address] Feb, [facility] [address] [id number] [address] [place] [address], [place] [address] Feb, [facility] [address] [id number] [address] [place] [address], [place] [address] Nov, [facility] [address] [id number] [address] [place] [address], [place] [address] Nov, [facility] [address] [id number] [address] [place] [address], [place] [address] Nov, [facility] [address] [id number] [address] [place] [address], [place] [address] Nov, [facility] [address] [id number] [address] [place] [address], [place] [address] Nov, [facility] [address] [id number] [address] [place] [address], [place] [address] Nov, [facility] [address] [id number] [address] [place] [address], [place] [address] Sep, [facility] [address] [id number] [address] [place] [address], [place] [address] Sep, [facility] [address] [id number] [address] [place] [address], [place] [address] Sep, [facility] [address] [id number] [address] [place] [address], [place] [address] Sep, [facility] [address] [id number] [address] [place] [address], [place] [address] Sep, [facility] [address] [id number] [address] [place] [address], [place] [address] Sep, [facility] [address] [id number] [address] [place] [address], [place] [address] Aug, [facility] [address] [id number] [address] [place] [address], [place] [address] Aug, [facility] [address] [id number] [address] [place] [address], [place] [address] July, [facility] [address] [id number] [address] [place] [address], [place] [address] July, [facility] [address] [id number] [address] [place] [address], [place] [address] July, [facility] [address] [id number] [address] [place] [address], [place] [address] July, [facility] [address] [id number] [address] [place] [address], [place] [address] Jun, [facility] [address] [id number] [address] [place] [address], [place] [address] Jun, [facility] [address] [id number] [address] [place] [address], [place] [address] Jun, [facility] [address] [id number] [address] [place] [address], [place] [address] Jun, [facility] [address] [id number] [address] [place] [address], [place] [address] May, [facility] [address] [id number] [address] [place] [address], [place] [address] May, [facility] [address] [id number] [address] [place] [address], [place] [address] Apr, [facility] [address] [id number] [address] [place] [address], [place] [address] Apr, [facility] [address] [id number] [address] [place] [address], [place] [address] Apr, [facility] [address] [id number] [address] [place] [address], [place] [address] Apr, [facility] [address] [id number] [address] [place] [address], [place] [address] Apr, [facility] [address] [id number] [address] [place] [address], [place] [address] 16 Mar, 2013 [facility] [address] [id number] [address] [place] [address], [place] [address] Mar, [facility] [address] [id number] [address] [place] [address], [place] [address] Mar, [facility] [address] [id number] [address] [place] [address], [place] [address] Mar, [facility] [address] [id number] [address] [place] [address], [place] [address] Feb, [facility] [address] [id number] [address] [place] [address], [place] [address] Feb, [facility] [address] [id number] [address] [place] [address], [place] [address] Jan, [facility] [address] [id number] [address] [place] [address], [place] [address] Jan, [facility] [address] [id number] [address] [place] [address], [place] [address] Jan, [facility] [address] [id number] [address] [place] [address], [place] [address] Jan, [facility] [address] [id number] [address] [place] [address], [place] [address] Dec, [facility] [address] [id number] [address] [place] [address], [place] [address] 14 Dec, 2012 [facility] [address] [id number] [address] [place] [address], [place] [address] Dec, [facility] [address] [id number] [address] [place] [address], [place] [address] Nov, [facility] [address] [id number] [address] [place] [address], [place] [address] Oct, [facility] [address] [id number] [address] [place] [address], [place] [address] Sep, [facility] [address] [id number] [address] [place] [address], [place] [address] Sep, [facility] [address] [id number] [address] [place] [address], [place] [address] Sep, [facility] [address] [id number] [address] [place] [address], [place] [address] Jun, [facility] [address] [id number] [address] [place] [address], [place] [address] Jun, [facility] [address] [id number] [address] [place] [address], [place] [address] Apr, [facility] [address] [id number] [address] [place] [address], [place] [address] Mar, [facility] [address] [id number] [address] [place] [address], [place] [address] Feb, [facility] [address] [id number] [address] [place] [address], [place] [address] Feb, [facility] [address] [id number] [address] [place] [address], [place] [address] Dec, [facility] [address] [id number] [address] [place] [address], [place] [address] Dec, [facility] [address] [id number] [address] [place] [address], [place] [address] Dec, [facility] [address] [id number] [address] [place] [address], [place] [address] Nov, [facility] [address] [id number] [address] [place] [address], [place] [address] Nov, [facility] [address] [id number] [address] [place] [address], [place] [address] Oct, [facility] [address] [id number] [address] [place] [address], [place] [address] Sep, [facility] [address] [id number] [address] [place] [address] 07 Aug, 2011 [facility] [address] [id number] [address] [place] [address] May, [facility] [address] [id number] [address] [place] [address] May, [facility] [address] [id number] [address] [place] [address] May, [facility] [address] [id number] [address] [place] [address] May, [facility] [address] [id number] [address] [place] [address] May, [facility] [address] [id number] [address] [place] [address] 16 Apr, 2011 [facility] [address] [id number] [address] [place] [address] 14 Dec, 2010 [facility] [address] [id number] [address] [place] [address] 13 Nov, 2010 [facility] [address] [id number] [address] [place] [address] Feb, [facility] [address] [id number] [address] [place] [address] 30 Jan, 2009 [facility] [address] [id number] [address] [place] [address] Jan, [facility] [address] [id number] [address] [place] [address] Jan, [facility] [address] [id number] [address] [place] [address] Jan, IMMUNIZATIONS No Known Immunizations SOCIAL HISTORY Never Assessed REASON FOR VISIT Requests return call PLAN OF CARE VITAL SIGNS MEDICATIONS Unknown [...]
--- OUTSIDE RECORDS SUMMARY | 2019-07-28 21:44 | XMS REPORT ---
Author Author Bradley BATES Organization [facility] Address [address] [place] [address] Care Team Providers Care Online Marketing Coordinator Name Role Phone ADRIANO BATES Unavailable PROBLEMS Type Condition ICD9-CM Code OYX50-QF Code Onset Dates Condition S tatus SNOMED Code Problem Mood disorder F39 Active 053307 05 Problem Hemiplegia, unspecified etio logy, unspecified hemiplegia laterality, unspecified hemiplegia type G81.90 Active 33055822 Problem Anxiety F41.9 Active 47767412 Problem Traumatic brain injury with loss of consciousness, sequela S06.9X9S Active 121938676 Problem Left hemiplegia G81.94 Active 2782 13992 Problem Other generalized epilepsy, 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 [id number] [address] [place] [id number] Jan, [facility] [address] [place] [id number] [address] [place] [address] Jan, Anxiety F41.9 ; Wheel chair as ambulatory aid Z99.3 ; Left hemiplegia G81.94 and Encounter for immunization Z23 [facility] [address] [facility] [id number] [address] [place] [address] Jan, [facility] [address] [facility] [id number] [address] [place] [address] [id number] Oct, Dental examination Z01.20 [facility] [address] [facility] [id number] [address] [place] [address] Aug, Medicare annual wellness vis it, initial Z00.00 ; Traumatic brain injury with loss of consciousness, sequela S06.9X9S ; Anxiety F41.9 ; Mood disorder F39 ; Other specified glaucoma, unspecified laterality H40.89 ; Hemiplegia, unspecified etiology, unspecified hemiplegia laterality, unspecified hemiplegia type G81.90 ; Other generalized epilepsy, 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ble, 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 ; Left hemiplegia G81.94 and Encounter for immunization Z23 [place] [address] [facility] [id number] [address] [place] [address] July, Left hemiplegia G81.94 ; Low er extremity edema R60.0 ; Seizure disorder G40.909 and Wheel chair as ambulatory aid Z99.3 [place] [address] [facility] [id number] [address] [place] [address] Jan, [place] [address] [place] [id number] [address] [place] [address] Dec, Dependent edema R60.9 and He miplegia, unspecified etiology, unspecified hemiplegia laterality, unspecified hemiplegia type G81.90 [place] [address] [id number] [address] [place] [address] Aug, Lower extremity edema R60.0 [place] [address] [facility] [id number] [address] [place] [address] July, Wheel chair as ambulatory ai d Z99.3 ; Hemiplegia, unspecified etiology, unspecified hemiplegia laterality, unspecified hemiplegia type G81.90 ; Spinal cord injury of thoracic region without bone injury, sequela S24.109S and Weakness of both lower limbs R29.898 [place] [address] [id number] [address] [place] [address] Jun, [place] [address] [id number] [place] [id number] May, [place] [address] [id number] [place] [id number] May, [place] [address] [place] [id number] [address] [place] [id number] 14 Feb, 2016 [facility] [address] [id number] [address] [place] [id number] 30 Jan, 2016 [facility] [address] [id number] [address] [place] [id number] 16 Jan, 2016 Traumatic brain injury, with loss of consciousness of unspecified duration, sequela S06.9X9S ; Well adult health check Z00.00 and Other generalized epilepsy, 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ble, 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 [facility] [address] [id number] [address] [place] [id number] 15 Jan, 2016 [facility] [address] [id number] [address] [place] [id number] 28 Nov, 2014 [facility] [address] [id number] [address] [place] [id number] 14 Jun, 2014 [facility] [address] [id number] [address] [place] [id number] 13 Jun, 2014 [facility] [address] [id number] [address] [place] [id number] Apr, [facility] [address] [id number] [address] [place] [address] Apr, [facility] [address] [id number] [address] [place] [id number] 18 Apr, 2014 [facility] [address] [id number] [address] [place] [id number] 17 Apr, 2014 [facility] [address] [id number] [address] [place] [address] Apr, [facility] [address] [id number] [address] [place] [id number] Apr, [facility] [address] [facility] [facility] [id number] [address] [place] [id number] Apr, [facility] [address] [id number] [facility] [place] [address] Mar, [facility] [address] [id number] [address] [place] [address], [place] [address] Mar, [facility] [address] [id number] [address] [place] [address], [place] [address] Feb, [facility] [address] [id number] [address] [place] [address], [place] [address] Feb, [facility] [address] [id number] [address] [place] [address], [place] [address] Nov, [facility] [address] [id number] [address] [place] [address], [place] [address] Nov, [facility] [address] [id number] [address] [place] [address], [place] [address] Nov, [facility] [address] [id number] [address] [place] [address], [place] [address] Nov, [facility] [address] [id number] [address] [place] [address], [place] [address] Nov, [facility] [address] [id number] [address] [place] [address], [place] [address] Nov, [facility] [address] [id number] [address] [place] [address], [place] [address] Sep, [facility] [address] [id number] [address] [place] [address], [place] [address] Sep, [facility] [address] [id number] [address] [place] [address], [place] [address] Sep, [facility] [address] [id number] [address] [place] [address], [place] [address] Sep, [facility] [address] [id number] [address] [place] [address], [place] [address] Sep, [facility] [address] [id number] [address] [place] [address], [place] [address] Sep, [facility] [address] [id number] [address] [place] [address], [place] [address] Aug, [facility] [address] [id number] [address] [place] [address], [place] [address] Aug, [facility] [address] [id number] [address] [place] [address], [place] [address] July, [facility] [address] [id number] [address] [place] [address], [place] [address] July, [facility] [address] [id number] [address] [place] [address], [place] [address] July, [facility] [address] [id number] [address] [place] [address], [place] [address] July, [facility] [address] [id number] [address] [place] [address], [place] [address] Jun, [facility] [address] [id number] [address] [place] [address], [place] [address] Jun, [facility] [address] [id number] [address] [place] [address], [place] [address] Jun, [facility] [address] [id number] [address] [place] [address], [place] [address] Jun, [facility] [address] [id number] [address] [place] [address], [place] [address] May, [facility] [address] [id number] [address] [place] [address], [place] [address] May, [facility] [address] [id number] [address] [place] [address], [place] [address] Apr, [facility] [address] [id number] [address] [place] [address], [place] [address] Apr, [facility] [address] [id number] [address] [place] [address], [place] [address] Apr, [facility] [address] [id number] [address] [place] [address], [place] [address] Apr, [facility] [address] [id number] [address] [place] [address], [place] [address] Apr, [facility] [address] [id number] [address] [place] [address], [place] [address] Mar, [facility] [address] [id number] [address] [place] [address], [place] [address] Mar, [facility] [address] [id number] [address] [place] [address], [place] [address] Mar, [facility] [address] [id number] [address] [place] [address], [place] [address] Mar, [facility] [address] [id number] [address] [place] [address], [place] [address] Feb, [facility] [address] [id number] [address] [place] [address], [place] [address] Feb, [facility] [address] [id number] [address] [place] [address], [place] [address] Jan, [facility] [address] [id number] [address] [place] [address], [place] [address] Jan, [facility] [address] [id number] [address] [place] [address], [place] [address] Jan, [facility] [address] [id number] [address] [place] [address], [place] [address] Jan, [facility] [address] [id number] [address] [place] [address], [place] [address] Dec, [facility] [address] [id number] [address] [place] [address], [place] [address] Dec, [facility] [address] [id number] [address] [place] [address], [place] [address] Dec, [facility] [address] [id number] [address] [place] [address], [place] [address] Nov, [facility] [address] [id number] [address] [place] [address], [place] [address] Oct, [facility] [address] [id number] [address] [place] [address], [place] [address] Sep, [facility] [address] [id number] [address] [place] [address], [place] [address] Sep, [facility] [address] [id number] [address] [place] [address], [place] [address] Sep, [facility] [address] [id number] [address] [place] [address], [place] [address] Jun, [facility] [address] [id number] [address] [place] [address], [place] [address] Jun, [facility] [address] [id number] [address] [place] [address], [place] [address] Apr, [facility] [address] [id number] [address] [place] [address], [place] [address] Mar, [facility] [address] [id number] [address] [place] [address], [place] [address] Feb, [facility] [address] [id number] [address] [place] [address], [place] [address] Feb, [facility] [address] [id number] [address] [place] [address], [place] [address] Dec, [facility] [address] [id number] [address] [place] [address], [place] [address] Dec, [facility] [address] [id number] [address] [place] [address], [place] [address] Dec, [facility] [address] [id number] [address] [place] [address], [place] [address] Nov, [facility] [address] [id number] [address] [place] [address], [place] [address] 18 Nov, 2011 [facility] [address] [id number] [address] [place] [id number] 30 Oct, 2011 [facility] [address] [id number] [address] [place] [address], [place] [address] 05 Sep, 2011 [facility] [address] [id number] [address] [place] [address] Aug, [facility] [address] [id number] [address] [place] [address], [place] [address] May, [facility] [address] [id number] [address] [place] [address], [place] [address] May, [facility] [address] [id number] [address] [place] [address], [place] [address] May, [facility] [address] [id number] [address] [place] [address], [place] [address] May, [facility] [address] [id number] [address] [place] [address] May, [facility] [address] [id number] [address] [place] [address] Apr, [facility] [address] [id number] [address] [place] [id number] 14 Dec, 2010 [facility] [address] [id number] [address] [place] [address] Nov, [facility] [address] [id number] [address] [place] [address] Feb, [facility] [address] [id number] [address] [place] [id number] 30 Jan, 2009 [facility] [address] [id number] [address] [place] [address] 24 Jan, 2009 [facility] [address] [id number] [address] [place] [id number] 16 Jan, 2009 [facility] [address] [id number] [address] [place] [address] Jan, IMMUNIZATIONS No Known Immunizations SOCIAL HISTORY Never Assessed REASON FOR VISIT Eye Exam PLAN OF CARE VITAL SIGNS MEDICATIONS Unknown [...]
--- OUTSIDE RECORDS SUMMARY | 2019-07-28 21:44 | XMS REPORT ---
Author Author Bradley Briseno Doctor Organization [facility] Address Unknown Phone Unavailable Care Team Providers Care Information Operator Name Role Phone Migration, Doctor Unavailable Unavailable PROBLEMS Type Condition ICD9-CM Code [id number] Code Onset Dates Condition S tatus SNOMED Code Problem Mood disorder F39 Active 341614 05 Problem Anxiety F41.9 Active 64339176 Problem Hemiplegia, unspecified etio logy, unspecified hemiplegia laterality, unspecified hemiplegia type G81.90 Active 46231592 Problem Left hemiplegia G81.94 Active 2782 88633 Problem Traumatic brain injury with loss of consciousness, sequela S06.9X9S Active 246262717 Problem Other specified glaucoma, unspecified laterality H 40.89 Active 72205650 Problem Other generalized epilepsy, 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, 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 Active 51393833 Problem Wheel chair as ambulatory aid Z99.3 Active 490115756 Problem Seizure disorder G40.909 Active 128 925088 ALLERGIES No Information ENCOUNTERS Encounter Location Date Diagnosis [facility] [place] [address] [id number] [address] [place] [address] Jan, [facility] [place] [address] [facility] [id number] [address] [place] [address] Jan, Anxiety F41.9 ; Wheel chair as ambulatory aid Z99.3 ; Left hemiplegia G81.94 and Encounter for immunization Z23 [facility] [place] [address] [facility] [id number] [address] [place] [address] Jan, [facility] [address] [id number] [address] [place] [id number] Oct, Dental examination Z01.20 [facility] [place] [address] [facility] [id number] [address] [place] [address] Aug, Medicare annual wellness vis it, initial Z00.00 ; Traumatic brain injury with loss of consciousness, sequela S06.9X9S ; Anxiety F41.9 ; Mood disorder F39 ; Other specified glaucoma, unspecified laterality H40.89 ; Hemiplegia, unspecified etiology, unspecified hemiplegia laterality, unspecified hemiplegia type G81.90 ; Other generalized epilepsy, 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ble, 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 ; Left hemiplegia G81.94 and Encounter for immunization Z23 [facility] [place] [address] [facility] [id number] [address] [place] [address] July, Left hemiplegia G81.94 ; Low er extremity edema R60.0 ; Seizure disorder G40.909 and Wheel chair as ambulatory aid Z99.3 [place] [address] [id number] [address] [place] [address] Jan, [place] [address] [facility] [id number] [address] [place] [address] Dec, Dependent edema R60.9 and He miplegia, unspecified etiology, unspecified hemiplegia laterality, unspecified hemiplegia type G81.90 [place] [address] [id number] [address] [place] [address] Aug, Lower extremity edema R60.0 [place] [address] [facility] [id number] [address] [place] [address] July, Wheel chair as ambulatory ai d Z99.3 ; Hemiplegia, unspecified etiology, unspecified hemiplegia laterality, unspecified hemiplegia type G81.90 ; Spinal cord injury of thoracic region without bone injury, sequela S24.109S and Weakness of both lower limbs R29.898 [place] [address] [id number] [address] [place] [address] Jun, [facility] [address] [id number] [id number] May, [place] [address] [id number] [place] [id number] May, [place] [address] [facility] [id number] [address] [place] [address] Feb, [facility] [place] [address] [id number] [address] [place] [address] Jan, [facility] [place] [address] [facility] [id number] [address] [place] [address] Jan, Traumatic brain injury, with loss of consciousness of unspecified duration, sequela S06.9X9S ; Well adult health check Z00.00 and Other generalized epilepsy, 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ble, 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 [facility] [place] [address] [id number] [address] [place] [address] Jan, [facility] [place] [address] [id number] [address] [place] [address] Nov, [facility] [place] [address] [id number] [address] [place] [address] Jun, [facility] [place] [address] [id number] [address] [place] [address] Jun, [facility] [place] [address] [id number] [address] [place] [address] Apr, [facility] [place] [address] [facility] [id number] [address] [place] [id number] Apr, [facility] [place] [address] [facility] [id number] [address] [place] [address] 18 Apr, 2014 [facility] [place] [address] [id number] [address] [place] [id number] Apr, [facility] [place] [address] [facility] [id number] [address] [place] [address] Apr, [facility] [place] [address] [facility] [id number] [address] [place] [id number] Apr, [facility] [place] [address] [facility] [id number] [address] [place] [address] Apr, [facility] [place] [address] [facility] [id number] [address] [place] [id number] Mar, [facility] [address] [id number] [address] [place] [address], [place] [address] Mar, [facility] [address] [id number] [address] [place] [address], [place] [address] Feb, [facility] [address] [id number] [address] [place] [address], [place] [address] Feb, [facility] [address] [id number] [address] [place] [address], [place] [address] Nov, [facility] [address] [id number] [address] [place] [address], [place] [address] Nov, [facility] [address] [id number] [address] [place] [address], [place] [address] Nov, [facility] [address] [id number] [address] [place] [address], [place] [address] Nov, [facility] [address] [id number] [address] [place] [address], [place] [address] Nov, [facility] [address] [id number] [address] [place] [address], [place] [address] Nov, [facility] [address] [id number] [address] [place] [address], [place] [address] Sep, [facility] [address] [id number] [address] [place] [address], [place] [address] Sep, [facility] [address] [id number] [address] [place] [address], [place] [address] Sep, [facility] [address] [id number] [address] [place] [address], [place] [address] Sep, [facility] [address] [id number] [address] [place] [address], [place] [address] Sep, [facility] [address] [id number] [address] [place] [address], [place] [address] Sep, [facility] [address] [id number] [address] [place] [address], [place] [address] Aug, [facility] [address] [id number] [address] [place] [address], [place] [address] Aug, [facility] [address] [id number] [address] [place] [address], [place] [address] July, [facility] [address] [id number] [address] [place] [address], [place] [address] July, [facility] [address] [id number] [address] [place] [address], [place] [address] July, [facility] [address] [id number] [address] [place] [address], [place] [address] July, [facility] [address] [id number] [address] [place] [address], [place] [address] Jun, [facility] [address] [id number] [address] [place] [address], [place] [address] Jun, [facility] [address] [id number] [address] [place] [address], [place] [address] Jun, [facility] [address] [id number] [address] [place] [address], [place] [address] Jun, [facility] [address] [id number] [address] [place] [address], [place] [address] May, [facility] [address] [id number] [address] [place] [address], [place] [address] May, [facility] [address] [id number] [address] [place] [address], [place] [address] Apr, [facility] [address] [id number] [address] [place] [address], [place] [address] Apr, [facility] [address] [id number] [address] [place] [address], [place] [address] Apr, [facility] [address] [id number] [address] [place] [address], [place] [address] Apr, [facility] [address] [id number] [address] [place] [address], [place] [address] 05 Apr, 2013 [facility] [address] [id number] [address] [place] [address], [place] [address] Mar, [facility] [address] [id number] [address] [place] [address], [place] [address] Mar, [facility] [address] [id number] [address] [place] [address], [place] [address] Mar, [facility] [address] [id number] [address] [place] [address], [place] [address] Mar, [facility] [address] [id number] [address] [place] [address], [place] [address] Feb, [facility] [address] [id number] [address] [place] [address], [place] [address] Feb, [facility] [address] [id number] [address] [place] [address], [place] [address] Jan, [facility] [address] [id number] [address] [place] [address], [place] [address] Jan, [facility] [address] [id number] [address] [place] [address], [place] [address] Jan, [facility] [address] [id number] [address] [place] [address], [place] [address] Jan, [facility] [address] [id number] [address] [place] [address], [place] [address] Dec, [facility] [address] [id number] [address] [place] [address], [place] [address] Dec, [facility] [address] [id number] [address] [place] [address], [place] [address] Dec, [facility] [address] [id number] [address] [place] [address], [place] [address] 16 Nov, 2012 [facility] [address] [id number] [address] [place] [address], [place] [address] Oct, [facility] [address] [id number] [address] [place] [address], [place] [address] Sep, [facility] [address] [id number] [address] [place] [address], [place] [address] Sep, [facility] [address] [id number] [address] [place] [address], [place] [address] Sep, [facility] [address] [id number] [address] [place] [address], [place] [address] Jun, [facility] [address] [id number] [address] [place] [address], [place] [address] Jun, [facility] [address] [id number] [address] [place] [address], [place] [address] Apr, [facility] [address] [id number] [address] [place] [address], [place] [address] Mar, [facility] [address] [id number] [address] [place] [address], [place] [address] Feb, [facility] [address] [id number] [address] [place] [address], [place] [address] Feb, [facility] [address] [id number] [address] [place] [address], [place] [address] Dec, [facility] [address] [id number] [address] [place] [address], [place] [address] Dec, [facility] [address] [id number] [address] [place] [address], [place] [address] Dec, [facility] [address] [id number] [address] [place] [address], [place] [address] Nov, [facility] [address] [id number] [address] [place] [address], [place] [address] Nov, [facility] [address] [id number] [address] [place] [address], [place] [address] Oct, [facility] [address] [id number] [address] [place] [address] 05 Sep, 2011 [facility] [place] [address] [id number] [address] [place] [address] Aug, [facility] [place] [address] [id number] [address] [place] [address] May, [facility] [place] [address] [id number] [address] [place] [address] May, [facility] [place] [address] [id number] [address] [place] [address] May, [facility] [place] [address] [id number] [address] [place] [address] May, [facility] [place] [address] [id number] [address] [place] [address] May, [facility] [place] [address] [id number] [address] [place] [address] 16 Apr, 2011 [facility] [place] [address] [id number] [address] [place] [address] 14 Dec, 2010 [facility] [place] [address] [id number] [address] [place] [address] Nov, [facility] [place] [address] [id number] [address] [place] [address] Feb, [facility] [place] [address] [id number] [address] [place] [address] 30 Jan, 2009 [facility] [place] [address] [id number] [address] [place] [address] 24 Jan, 2009 [facility] [place] [address] [id number] [address] [place] [address] 16 Jan, 2009 [facility] [place] [address] [id number] [address] [place] [address] 16 Jan, 2009 IMMUNIZATIONS No Known Immunizations SOCIAL HISTORY Never Assessed REASON FOR VISIT EMR-[facility] PLAN OF CARE VITAL SIGNS MEDICATIONS Unknown [...]
--- OUTSIDE RECORDS SUMMARY | 2019-07-28 21:44 | XMS REPORT ---
Author Author Bradley BATES Organization [facility] Address [address] [place] [address] Care Team Providers Care Cushion Maker Hand Name Role Phone ADRIANO BATES Unavailable PROBLEMS Type Condition ICD9-CM Code [id number] Code Onset Dates Condition S tatus SNOMED Code Problem Mood disorder F39 Active 171850 05 Problem Wheel chair as ambulatory aid Z99.3 Active 307927192 Problem Other generalized epilepsy, 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, 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 Active 62926027 Problem Calculus of kidney 592.0 Active 9 3295250 Problem Anxiety F41.9 Active 93874555 Problem Other specified glaucoma, unspecified laterality H 40.89 Active 72135552 Problem Hemiplegia, unspecified etio logy, unspecified hemiplegia laterality, unspecified hemiplegia type G81.90 Active 26606276 ALLERGIES No Information SOCIAL HISTORY Never Assessed PLAN OF CARE VITAL SIGNS MEDICATIONS Unknown [...]
--- OUTSIDE RECORDS SUMMARY | 2019-07-28 21:44 | XMS REPORT ---
Author Author Bradley Briseno Doctor Organization [facility] Address Unknown Phone Unavailable Care Team Providers Care Food Service Manager Name Role Phone Migration, Doctor Unavailable Unavailable PROBLEMS Type Condition ICD9-CM Code JPU50-VK Code Onset Dates Condition S tatus SNOMED Code Problem Mood disorder F39 Active 912307 05 Problem Anxiety F41.9 Active 40185812 Problem Hemiplegia, unspecified etio logy, unspecified hemiplegia laterality, unspecified hemiplegia type G81.90 Active 96996590 Problem Left hemiplegia G81.94 Active 2782 01179 Problem Traumatic brain injury with loss of consciousness, sequela S06.9X9S Active 625805107 Problem Other specified glaucoma, unspecified laterality H 40.89 Active 16914648 Problem Other generalized epilepsy, 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, 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 Active 90347407 Problem Wheel chair as ambulatory aid Z99.3 Active 356863405 Problem Seizure disorder G40.909 Active 128 852951 ALLERGIES No Information ENCOUNTERS Encounter Location Date Diagnosis [facility] [address] [id number] [address] [place] [phone] Jan, [facility] [address] [facility] [id number] [address] [place] [id number] Jan, Anxiety F41.9 ; Wheel chair as ambulatory aid Z99.3 ; Left hemiplegia G81.94 and Encounter for immunization Z23 [facility] [address] [facility] [id number] [address] [place] [id number] Jan, [facility] [address] [id number] [address] [place] [id number] Oct, Dental examination Z01.20 [facility] [address] [facility] [id number] [address] [place] [id number] Aug, Medicare annual wellness vis it, initial Z00.00 ; Traumatic brain injury with loss of consciousness, sequela S06.9X9S ; Anxiety F41.9 ; Mood disorder F39 ; Other specified glaucoma, unspecified laterality H40.89 ; Hemiplegia, unspecified etiology, unspecified hemiplegia laterality, unspecified hemiplegia type G81.90 ; Other generalized epilepsy, 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ble, 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 ; Left hemiplegia G81.94 and Encounter for immunization Z23 [facility] [address] [facility] [id number] [address] [place] [id number] July, Left hemiplegia G81.94 ; Low er extremity edema R60.0 ; Seizure disorder G40.909 and Wheel chair as ambulatory aid Z99.3 [place] [address] [id number] [address] [place] [id number] Jan, [place] [address] [facility] [id number] [address] [place] [id number] Dec, Dependent edema R60.9 and He miplegia, unspecified etiology, unspecified hemiplegia laterality, unspecified hemiplegia type G81.90 [place] [address] [id number] [address] [place] [id number] Aug, Lower extremity edema R60.0 [place] [address] [facility] [id number] [address] [place] [id number] July, Wheel chair as ambulatory ai d Z99.3 ; Hemiplegia, unspecified etiology, unspecified hemiplegia laterality, unspecified hemiplegia type G81.90 ; Spinal cord injury of thoracic region without bone injury, sequela S24.109S and Weakness of both lower limbs R29.898 [place] [address] [id number] [address] [place] [id number] Jun, [facility] [address] [id number] [place] [id number] May, [place] [address] [id number] [place] [id number] May, [place] [address] [facility] [id number] [address] [place] [id number] Feb, [facility] [address] [id number] [address] [place] [id number] Jan, [facility] [address] [facility] [id number] [address] [place] [id number] Jan, Traumatic brain injury, with loss of consciousness of unspecified duration, sequela S06.9X9S ; Well adult health check Z00.00 and Other generalized epilepsy, 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ble, 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 [facility] [address] [id number] [address] [place] [id number] Jan, [facility] [address] [id number] [address] [place] [id number] Nov, [facility] [address] [place] [address] [id number] [address] [place] [id number] Jun, [facility] [address] [place] [address] [id number] [address] [place] [id number] Jun, [facility] [address] [address] [id number] [address] [place] [id number] Apr, [facility] [address] [facility] [id number] [address] [place] [phone] Apr, [facility] [address] [facility] [id number] [address] [place] [id number] 18 Apr, 2014 [facility] [address] [place] [address] [id number] [address] [place] [id number] Apr, [facility] [address] [facility] [id number] [address] [place] [id number] Apr, [facility] [address] [facility] [id number] [address] [place] [id number] Apr, [facility] [address] [facility] [id number] [address] [place] [id number] Apr, [facility] [address] [facility] [id number] [address] [place] [id number] Mar, [facility] [address] [id number] [address] [place] [address], [place] [address] Mar, [facility] [address] [id number] [address] [place] [address], [place] [address] Feb, [facility] [address] [id number] [address] [place] [address], [place] [address] Feb, [facility] [address] [id number] [address] [place] [address], [place] [address] Nov, [facility] [address] [id number] [address] [place] [address], [place] [address] Nov, [facility] [address] [id number] [address] [place] [address], [place] [address] Nov, [facility] [address] [id number] [address] [place] [address], [place] [address] Nov, [facility] [address] [id number] [address] [place] [address], [place] [address] Nov, [facility] [address] [id number] [address] [place] [address], [place] [address] Nov, [facility] [address] [id number] [address] [place] [address], [place] [address] Sep, [facility] [address] [id number] [address] [place] [address], [place] [address] Sep, [facility] [address] [id number] [address] [place] [address], [place] [address] Sep, [facility] [address] [id number] [address] [place] [address], [place] [address] Sep, [facility] [address] [id number] [address] [place] [address], [place] [address] Sep, [facility] [address] [id number] [address] [place] [address], [place] [address] Sep, [facility] [address] [id number] [address] [place] [address], [place] [address] Aug, [facility] [address] [id number] [address] [place] [address], [place] [address] Aug, [facility] [address] [id number] [address] [place] [address], [place] [address] July, [facility] [address] [id number] [address] [place] [address], [place] [address] July, [facility] [address] [id number] [address] [place] [address], [place] [address] July, [facility] [address] [id number] [address] [place] [address], [place] [address] July, [facility] [address] [id number] [address] [place] [address], [place] [address] Jun, [facility] [address] [id number] [address] [place] [address], [place] [address] Jun, [facility] [address] [id number] [address] [place] [address], [place] [address] Jun, [facility] [address] [id number] [address] [place] [address], [place] [address] Jun, [facility] [address] [id number] [address] [place] [address], [place] [address] May, [facility] [address] [id number] [address] [place] [address], [place] [address] May, [facility] [address] [id number] [address] [place] [address], [place] [address] Apr, [facility] [address] [id number] [address] [place] [address], [place] [address] Apr, [facility] [address] [id number] [address] [place] [address], [place] [address] Apr, [facility] [address] [id number] [address] [place] [address], [place] [address] Apr, [facility] [address] [id number] [address] [place] [address], [place] [address] 05 Apr, 2013 [facility] [address] [id number] [address] [place] [address], [place] [address] Mar, [facility] [address] [id number] [address] [place] [address], [place] [address] Mar, [facility] [address] [id number] [address] [place] [address], [place] [address] Mar, [facility] [address] [id number] [address] [place] [address], [place] [address] Mar, [facility] [address] [id number] [address] [place] [address], [place] [address] Feb, [facility] [address] [id number] [address] [place] [address], [place] [address] Feb, [facility] [address] [id number] [address] [place] [address], [place] [address] Jan, [facility] [address] [id number] [address] [place] [address], [place] [address] Jan, [facility] [address] [id number] [address] [place] [address], [place] [address] Jan, [facility] [address] [id number] [address] [place] [address], [place] [address] Jan, [facility] [address] [id number] [address] [place] [address], [place] [address] Dec, [facility] [address] [id number] [address] [place] [address], [place] [address] Dec, [facility] [address] [id number] [address] [place] [address], [place] [address] Dec, [facility] [address] [id number] [address] [place] [address], [place] [address] 16 Nov, 2012 [facility] [address] [id number] [address] [place] [address], [place] [address] Oct, [facility] [address] [id number] [address] [place] [address], [place] [address] Sep, [facility] [address] [id number] [address] [place] [address], [place] [address] Sep, [facility] [address] [id number] [address] [place] [address], [place] [address] Sep, [facility] [address] [id number] [address] [place] [address], [place] [address] Jun, [facility] [address] [id number] [address] [place] [address], [place] [address] Jun, [facility] [address] [id number] [address] [place] [address], [place] [address] Apr, [facility] [address] [id number] [address] [place] [address], [place] [address] Mar, [facility] [address] [id number] [address] [place] [address], [place] [address] Feb, [facility] [address] [id number] [address] [place] [address], [place] [address] Feb, [facility] [address] [id number] [address] [place] [address], [place] [address] Dec, [facility] [address] [id number] [address] [place] [address], [place] [address] Dec, [facility] [address] [id number] [address] [place] [address], [place] [address] Dec, [facility] [address] [id number] [address] [place] [address], [place] [address] Nov, [facility] [address] [id number] [address] [place] [address], [place] [address] Nov, [facility] [address] [id number] [address] [place] [address], [place] [address] Oct, [facility] [address] [id number] [address] [place] [id number] 05 Sep, 2011 [facility] [address] [id number] [address] [place] [id number] Aug, [facility] [address] [id number] [address] [place] [phone] May, [facility] [address] [id number] [address] [place] [id number] May, [facility] [address] [id number] [address] [place] [id number] May, [facility] [address] [id number] [address] [place] [id number] May, [facility] [address] [id number] [address] [place] [id number] May, [facility] [address] [id number] [address] [place] [id number] 16 Apr, 2011 [facility] [address] [id number] [address] [place] [id number] 14 Dec, 2010 [facility] [address] [id number] [address] [place] [phone] Nov, [facility] [address] [id number] [address] [place] [phone] Feb, [facility] [address] [id number] [address] [place] [id number] 30 Jan, 2009 [facility] [address] [id number] [address] [place] [id number] 24 Jan, 2009 [facility] [address] [id number] [address] [place] [id number] 16 Jan, 2009 [facility] [address] [id number] [address] [place] [id number] 16 Jan, 2009 IMMUNIZATIONS No Known Immunizations SOCIAL HISTORY Never Assessed REASON FOR VISIT EMR-John PLAN OF CARE VITAL SIGNS MEDICATIONS Medication Instructions Dosage Frequency Start Date End Date Duration S scarlet Centrum by Oral route May, Activ e Docusate Sodium 100 mg take 1 capsule (100 mg) b y oral route 2 times per day Jan, Active Multivitamin 1 Tablet 1 time per day Dec, Active Keppra 1,000 mg 1 Tablet by Oral route 3 times per day 1 July, Active Mucinex 600 mg 1 tablet by Oral route every 12 hours PRN with plenty of water Nov, Active Lorazepam 2 mg 1 Tablet by Oral route every 6 hours PRN Apr, Active Cipro 250 mg take 1 tablet by Oral route 2 times per d ay for 5 days Sep, Active RESULTS No Results PROCEDURES No Known procedures [...]
--- OUTSIDE RECORDS SUMMARY | 2019-07-28 21:44 | XMS REPORT ---
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
[2019-07-28] MEDS ORDERED: PIPERACILLIN SODIUM/TAZOBACTAM 4.5 GM in NS (IVPB) 100 ML IV ONE (21:45)
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
--- OUTSIDE RECORDS SUMMARY | 2019-07-28 21:45 | XMS REPORT ---
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 Active 72929331 Problem Anxiety F41.9 Active 86035744 Problem Mood disorder F39 Active 952419 05 Problem Other specified glaucoma, unspecified laterality H 40.89 Active 20797795 Problem Hemiplegia, unspecified etio logy, unspecified hemiplegia laterality, unspecified hemiplegia type G81.90 Active 69381802 ALLERGIES No Known Allergies ENCOUNTERS Encounter Location Date Diagnosis [place] [address] [place] [id number] [address] [place] [address] July, [place] [address] [place] [id number] [address] [place] [address] Jan, [place] [address] [place] [id number] [address] [place] [address] Dec, Dependent edema R60.9 and He miplegia, unspecified etiology, unspecified hemiplegia laterality, unspecified hemiplegia type G81.90 [place] [address] [facility] [id number] [address] [place] [address] Aug, Lower extremity edema R60.0 [place] [address] [facility] [id number] [address] [place] [address] July, Wheel chair as ambulatory ai d Z99.3 ; Hemiplegia, unspecified etiology, unspecified hemiplegia laterality, unspecified hemiplegia type G81.90 ; Spinal cord injury of thoracic region without bone injury, sequela S24.109S and Weakness of both lower limbs R29.898 [facility] [address] [id number] [address] [place] [address] Jun, [facility] [address] [id number] [id number] May, [facility] [address] [id number] [place] [id number] May, [facility] [address] [id number] [address] [place] [address] Feb, [facility] [address] [id number] [address] [place] [address] 30 Jan, 2016 [facility] [address] [facility] [id number] [address] [place] [address] 16 Jan, 2016 Traumatic brain injury, with loss of consciousness of unspecified duration, sequela S06.9X9S ; Well adult health check Z00.00 and Other generalized epilepsy, 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ble, 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 [facility] [address] [id number] [address] [place] [address] Jan, [facility] [address] [id number] [address] [place] [address] 28 Nov, 2014 [facility] [address] [facility] [id number] [address] [place] [address] Jun, [facility] [address] [id number] [address] [place] [address] Jun, [facility] [address] [id number] [address] [place] [address] Apr, [facility] [address] [id number] [address] [place] [address] Apr, [facility] [address] [id number] [address] [place] [address] 18 Apr, 2014 [facility] [address] [id number] [address] [place] [address] Apr, [facility] [address] [id number] [address] [place] [address], [place] [address] Apr, [facility] [address] [id number] [address] [place] [address], [place] [address] Apr, [facility] [address] [id number] [address] [place] [address], [place] [address] Apr, [facility] [address] [id number] [address] [place] [address], [place] [address] Mar, [facility] [address] [id number] [address] [place] [address], [place] [address] Mar, [facility] [address] [id number] [address] [place] [address], [place] [address] Feb, [facility] [address] [id number] [address] [place] [address], [place] [address] Feb, [facility] [address] [id number] [address] [place] [address], [place] [address] Nov, [facility] [address] [id number] [address] [place] [address], [place] [address] Nov, [facility] [address] [id number] [address] [place] [address], [place] [address] Nov, [facility] [address] [id number] [address] [place] [address], [place] [address] Nov, [facility] [address] [id number] [address] [place] [address], [place] [address] Nov, [facility] [address] [id number] [address] [place] [address], [place] [address] Nov, [facility] [address] [id number] [address] [place] [address], [place] [address] Sep, [facility] [address] [id number] [address] [place] [address], [place] [address] Sep, [facility] [address] [id number] [facility] [place] [address] Sep, [facility] [address] [id number] [address] [place] [address], [place] [address] Sep, [facility] [address] [id number] [address] [place] [address], [place] [address] Sep, [facility] [address] [id number] [address] [place] [address], [place] [address] Sep, [facility] [address] [id number] [address] [place] [address], [place] [address] Aug, [facility] [address] [id number] [address] [place] [address], [place] [address] Aug, [facility] [address] [id number] [address] [place] [address], [place] [address] July, [facility] [address] [id number] [address] [place] [address], [place] [address] July, [facility] [address] [id number] [address] [place] [address], [place] [address] July, [facility] [address] [id number] [address] [place] [address], [place] [address] July, [facility] [address] [id number] [address] [place] [address], [place] [address] Jun, [facility] [address] [id number] [address] [place] [address], [place] [address] Jun, [facility] [address] [id number] [address] [place] [address], [place] [address] Jun, [facility] [address] [id number] [address] [place] [address], [place] [address] Jun, [facility] [address] [id number] [address] [place] [address], [place] [address] May, [facility] [address] [id number] [address] [place] [address], [place] [address] May, [facility] [address] [id number] [address] [place] [address], [place] [address] Apr, [facility] [address] [id number] [address] [place] [address], [place] [address] Apr, [facility] [address] [id number] [address] [place] [address], [place] [address] Apr, [facility] [address] [id number] [address] [place] [address], [place] [address] Apr, [facility] [address] [id number] [address] [place] [address], [place] [address] Apr, [facility] [address] [id number] [address] [place] [address], [place] [address] Mar, [facility] [address] [id number] [address] [place] [address], [place] [address] Mar, [facility] [address] [id number] [address] [place] [address], [place] [address] Mar, [facility] [address] [id number] [address] [place] [address], [place] [address] Mar, [facility] [address] [id number] [address] [place] [address], [place] [address] Feb, [facility] [address] [id number] [address] [place] [address], [place] [address] Feb, [facility] [address] [id number] [address] [place] [address], [place] [address] Jan, [facility] [address] [id number] [address] [place] [address], [place] [address] Jan, [facility] [address] [id number] [address] [place] [address], [place] [address] Jan, [facility] [address] [id number] [address] [place] [address], [place] [address] Jan, [facility] [address] [id number] [address] [place] [address], [place] [address] 14 Dec, 2012 [facility] [address] [id number] [address] [place] [address], [place] [address] 14 Dec, 2012 [facility] [address] [id number] [address] [place] [address], [place] [address] 03 Dec, 2012 [facility] [address] [id number] [address] [place] [address], [place] [address] 16 Nov, 2012 [facility] [address] [id number] [address] [place] [address], [place] [address] Oct, [facility] [address] [id number] [address] [place] [address], [place] [address] Sep, [facility] [address] [id number] [address] [place] [address], [place] [address] Sep, [facility] [address] [id number] [address] [place] [address], [place] [address] Sep, [facility] [address] [id number] [address] [place] [address], [place] [address] Jun, [facility] [address] [id number] [address] [place] [address], [place] [address] Jun, [facility] [address] [id number] [address] [place] [address], [place] [address] 15 Apr, 2012 [facility] [address] [id number] [address] [place] [address], [place] [address] Mar, [facility] [address] [id number] [address] [place] [address], [place] [address] Feb, [facility] [address] [id number] [address] [place] [address], [place] [address] Feb, [facility] [address] [id number] [address] [place] [address], [place] [address] 15 Dec, 2011 [facility] [address] [id number] [address] [place] [address], [place] [address] 15 Dec, 2011 [facility] [address] [id number] [address] [place] [address], [place] [address] 04 Dec, 2011 [facility] [address] [id number] [address] [place] [address], [place] [address] 25 Nov, 2011 [facility] [address] [id number] [address] [place] [address], [place] [address] 18 Nov, 2011 [facility] [address] [id number] [address] [place] [address], [place] [address] 30 Oct, 2011 [facility] [address] [id number] [address] [place] [address], [place] [address] Sep, [facility] [address] [id number] [address] [place] [address], [place] [address] Aug, [facility] [address] [id number] [address] [place] [address], [place] [address] May, [facility] [address] [id number] [address] [place] [address], [place] [address] May, [facility] [address] [id number] [address] [place] [address], [place] [address] May, [facility] [address] [id number] [address] [place] [address], [place] [address] May, [facility] [address] [id number] [address] [place] [address], [place] [address] May, [facility] [address] [id number] [address] [place] [address], [place] [address] 16 Apr, 2011 [facility] [address] [id number] [address] [place] [address], [place] [address] 14 Dec, 2010 [facility] [address] [id number] [address] [place] [address], [place] [address] 13 Nov, 2010 [facility] [address] [id number] [address] [place] [address], [place] [address] Feb, [facility] [address] [id number] [address] [place] [address] Jan, [facility] [address] [facility] [id number] [address] [place] [address] Jan, [facility] [address] [facility] [id number] [address] [place] [address] Jan, [facility] [address] [facility] [id number] [address] [place] [address] Jan, IMMUNIZATIONS No Known Immunizations SOCIAL HISTORY Never Assessed REASON FOR VISIT water retention -- alfonso bullock PLAN OF CARE Activity Details Follow Up 6 Months with Josy for [facility] Reason: VITAL SIGNS Height 74 in 2016-09-17 Weight 293.0 lbs 2016-09-17 Temperature 97.6 degrees Fahrenheit 2016-09-17 Heart Rate 99 bpm 2016-09-17 BMI 37.61 kg/m2 2016-09-17 Blood pressure systolic 124 mmHg 2016-09-17 Blood pressure diastolic 75 mmHg 2016-09-17 MEDICATIONS Medication Instructions Dosage Frequency Start Date End Date Duration S tatus Docusate Sodium 100 mg take 1 capsule (100 mg) b y oral route 2 times per day Jan, Active Keppra 1,000 mg 1 Tablet by Oral route 3 times per day 1 July, Active Vitamin C 1000 MG Orally Once a day 1 tablet 24h Active Alphagan P 0.15 % Ophthalmic Three times a day 1 drop into affected ey e 8h Active Effexor XR 150 MG Orally Once a day 1 capsule with food 24h Active Depakote 500 MG Active Centrum Silver - Active Calcium-Vitamin D 600-400 MG-UNIT Active RESULTS No Results PROCEDURES Procedure Date Ordered Result Body Site [facility] VISIT ESTABLISHED PATIENT September 17, 2016 INSTRUCTIONS MEDICATIONS ADMINISTERED No Known Medications MEDICAL [...]
--- OUTSIDE RECORDS SUMMARY | 2019-07-28 21:45 | XMS REPORT ---
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
[2019-07-28 21:46] LABS: BACTERIA,URINE TRACE /HPF; CALCIUM OXALATE CRYSTALS,UR MODERATE /LPF
--- NOTE | 2019-07-28 22:25 | NUR ---
blanket provided. patient is resting quietly in room and denies additional needs at this time. monitoring maintained. waiting at this time for bed assignment for cardiac stepdown.
--- NOTE | 2019-07-28 23:11 | NUR ---
SPOKE TO YESSY AT [facility] TO REPORT PATIENT CONDITION AND ADMISSION TO HOSPITAL. RIA LYNN APRN ALSO CALLED PATIENTS MOTHER TO UPDATE HER OF HER SONS CONDITION.
--- NOTE | 2019-07-28 23:41 | NUR ---
to room to visit with patient and reinforce we will be transferring him up to room 12 as a cardiac stepdown patient in a few minutes.patient is very patient and kind. denies needs at this time. call light in reach.
--- OUTSIDE RECORDS SUMMARY | 2019-07-28 23:43 | XMS REPORT ---
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 [employer] [place] [place] [employer] Address [address] [address] Care Team Providers Care Plate Grainer Name Role Phone LETTY, NIKKI Unavailable Unavailable KENYETTA FU Unavailable [facility] OF Unavailable [phone] SAENZ, NIKKI K Unavailable KENYETTA FU Unavailable [...] ADRIANO BATES Communit y (20 sources.) unspecified [address] [place] [address] Translations: of [facility] [ - Dependent [place] ([address]) edema R60.9, - Lower extremity edema R60.0, - Lower extremity edema R60.0, - Dependent edema R60.9] Medical Encounter for Episodic Active ADRIANO Hayden ity examination/ev general adult [address] [place] [address] aluation (4 medical of [facility] sources.) examination [place] ([address]) without abnormal findings Translations: [ - Well adult health check Z00.00, - Medicare annual wellness visit, initial Z00.00] Immunizations Encounter for Episodic Active ADRIANO BATES Co mmunity and screening immunization [address] [place] [address] for infectious Translations: of [facility] disease (20 [ - Encounter [place] ([address]) sources.) for immunization Z23, - Encounter for immunization Z23] Residual Localized Episodic Active ADRIANO BATES Community codes; edema [address] [place] [address] unclassified Translations: of [facility] (20 sources.) [ - Lower [place] ([address]277) extremity edema R60.0] Other Other symptoms Episodic Active ADRIANO BATES Commu nity connective and signs [address] [place] [address] tissue disease involving the of [facility] (20 sources.) musculoskeleta [place] ([address]51) l system Translations: [ - Weakness of both lower limbs R29.898, - Weakness of both lower limbs R29.898] Spinal cord Unspecified Episodic Active ADRIANO BATES Commun ity injury (20 injury at [address] [place] [address] sources.) unspecified of [facility] level of [place] ([address]) thoracic spinal cord, sequela Translations: [ - Spinal cord injury of thoracic region without bone injury, sequela S24.109S, - Spinal cord injury of thoracic region without bone injury, sequela S24.109S] Intracranial Unspecified Episodic Active ADRIANO BATES Commu nity injury (20 [facility] sources.) injury with of [facility] (65420) consciousness of unspecified duration, sequela Translations: [ [...] Blood count complete no information no name [facility] auto&auto difrntl wbc [facility] (52804) 04-14-2014 Comprehensive no information no name [facility] metabolic panel [facility] (67903) 11-12-2017 Dental prophylaxis no information no name [facility] adult [facility] (07587) 09-12-2017 Fall risk assessment no information no name [facility] docd [facility] (02301) 07-23-2017 [facility] visit, estab pt no information no name [facility] (80790) 01-14-2017 [facility] visit, estab pt no information no name [facility] (57955) 09-12-2017 FQ visit, IPPE or no information no name [facility] AWV [facility] (44892) 09-12-2017 Pt tobacco screen rcvd no information no name [facility] tlk [facility] (80179) 08-10-2013 Quantitation drug not no information no name [facility] specified [facility] (50303) 04-14-2014 Radiologic examination no information no name [facility] ankle 2 views [facility] (00409) 11-12-2017 Topical fluoride no information no name [facility] (44651) 04-14-2014 Urnls dip stick/tablet no information no name [facility] rgnt auto w/o [facility] (67996) Immunizations Normalized Immunization Date Notes Care Provider Facili ty Immunization influenza, 01-14-2017 - no information ADRIANO BATES [address] [facility] injectable, 01-14-2017 [facility] [place] ([address]) preservative free Translations: [ FLUARIX QUAD (3 AND UP) 2016] influenza, seasonal, 01-28-2018 no information no name [facility] injectable [facility] (43032) tetanus toxoid, 09-12-2017 - no information ADRIANO BATES 38419 [facility] reduced diphtheria 09-12-2017 [facility] (16488) acellular pertussis vaccine, adsorbed Translations: [ SINGLE IMMUNIZATION ADMIN, TDAP (BOOSTRIX)] SINGLE IMMUNIZATION 01-14-2017 no information ADRIANO BATES [phone] [facility] (97335) Results The data below is from unstructured [...] 09-12-2017 HO Y GAULT Community Index) 12:20-[id number] [place] [address] (95655) BMI (Body Mass 37.61 kg/m2 (no code) 15 - 25 kg/m2 07-23-2017 HO LLY GAULT Community Index) 14:20-[id number] [place] [address] (27[address]) Body height 187.96 cm (no code) cm 08-24-2013 [employer] [facility] 12:520400 19088 [facility] (75668) Body 97.9 [degF] (no code) 97.8 - 99.0 09-12-2017 ADRIANOMinnie WILLARD [facility] Temperature [degF] 12:[id number] [place] [address] (96221) Body 98.2 [degF] (no code) 97.8 - 99.0 07-23-2017 ADRIANOMinnie WILLARD [facility] Temperature [degF] 14: [address] [place] [address] ([id number]) Body 98 [degF] (no code) 97.8 - 99.0 01-14-2017 ADRIANO [employer] [facility] Temperature [degF] 12:[address] [place] [address] ([id number]) Body 98.6 [degF] (no code) 97.8 - 99.0 08-24-2013 NIKKI SAENZ [facility] temperature [degF] 12:520400 [address] [place] [address] (20410) Height 187.96 cm (no code) cm 09-12-2017 ADRIANO GAULT Co mmunity 12: [address] [place] [address] (54305) Height 187.96 cm (no code) cm 07-23-2017 ADRIANO GAULT Co mmunity 14: [address] [place] [address] ([id number]) Height 187.96 cm (no code) cm 01-14-2017 ADRIANO GAULT Co mmunity 12:[address] [place] [address] (54705) Weight 121.56 kg (no code) kg 09-12-2017 ADRIANO GAULT Co mmunity 12:[address] [place] [address] (03239) Weight 132.9 kg (no code) kg 07-23-2017 ADRIANO GAULT Com munity 14: [address] [place] [address] (05442) Interventions No Information Plan of Treatment The [...] Visit Edema, unspecified ADRIANO BATES (no phone) [facility] - (no phone) 01-14-2017 - 01-14-2017 09-17-2016 (ACUTE) Acute Visit Localized edema ADRIANO BATES (no phone) [facility] - (no phone) 09-17-2016 - 09-17-2016 01-28-2018 (M) Chronic Health Anxiety disorder, ADRIANO BATES (no phone) [facility] - Maintenance unspecified (no phone) 01-28-2018 - 01-28-2018 07-23-2017 (M) Chronic Health Hemiplegia, ADRIANO BATES (no ph one) [facility] - Maintenance unspecified affecting (no cherie ne) 07-23-2017 left nondominant side - 07-23-2017 08-06-2016 (CHM) Chronic Health Dependence on ADRIANO TOLEDOMCKAY (no phone) [facility] - Maintenance wheelchair (no phone) 08-06-2016 - 08-06-2016 11-12-2017 (d-outreach) Dental Encounter for dental STUART MURPHY (no [facility] - Outreach examination and phone) DENTAL (no phone) 11-12-2017 cleaning without - abnormal findings 11-12-2017 02-08-2016 (ESTAB) Establish Care Unspecified ADRIANO BATES (no phone) [facility] - intracranial injury (no phone) 02-08-2016 with loss of - consciousness of 02-08-2016 unspecified duration, sequela 09-12-2017 (MAWV) Medicare Annual Encounter for general ADRIANO BATES (no phone) [facility] - Wellness Visit adult medical (no phone) 09-12-2017 examination without - abnormal findings 09-12-2017 06-19-2016 [facility] no information ADRIANO BATES (no cherie ne) [facility] - NONFQHC NONFQHC (no phone) 06-19-2016 - 06-19-2016 06-12-2016 [facility] no information ADRIANO BATES (no cherie ne) [facility] - NONFQHC NONFQHC (no phone) 06-12-2016 - 06-12-2016 02-01-2017 [facility] no information ADRIANO BATES (n o phone) [facility] - (no phone) 02-01-2017 - 02-01-2017 07-11-2016 [facility] no information ADRIANO BATES (n o phone) [facility] - (no phone) 07-11-2016 - 07-11-2016 03-07-2016 [facility] no information KENYETTA FU (no [facility] - phone) (no phone) 03-07-2016 - 03-07-2016 02-22-2016 [facility] no information KENYETTA FU (no [facility] - phone) (no phone) 02-22-2016 - 02-22-2016 02-07-2016 [facility] no information NIKKI SAENZ (no phone) [facility] - (no phone) 02-07-2016 - 02-07-2016 12-20-2014 [facility] no information NIKKI SAENZ (no phone) [facility] - (no phone) 12-20-2014 - 12-20-2014 07-06-2014 [facility] no information Doctor Migrati on (no [facility] - phone) (no phone) 07-06-2014 - 07-06-2014 07-05-2014 [facility] no information Doctor Migrati on (no [facility] - phone) (no phone) 07-05-2014 - 07-05-2014 05-13-2014 [facility] no information NIKKI SAENZ (no phone) [facility] - Doctor Migration (no (no phone) 05-13-2014 phone) Doctor - Migration (no phone) 05-13-2014 NIKKI SAENZ (no phone) NIKKI SAENZ (no phone) Doctor [facility] (no phone) 05-12-2014 [facility] no information Doctor Migrati on (no [facility] - phone) (no phone) 05-12-2014 - 05-12-2014 05-11-2014 [facility] no information NIKKI SAENZ (no phone) [facility] - Doctor Migration (no (no phone) 05-11-2014 phone) NIKKI SAENZ (no - phone) Doctor 05-11-2014 [facility] (no phone) NIKKI SAENZ (no phone) Doctor [facility] (no phone) 04-26-2014 [facility] no information NIKKI SAENZ (no phone) [facility] - Doctor Migration (no (no phone) 04-26-2014 phone) NIKKI SAENZ (no - phone) Doctor 04-26-2014 [facility] (no phone) Doctor [facility] (no phone) NIKKI SAENZ (no phone) 04-14-2014 [facility] no information NIKKI SAENZ (no phone) [facility] - Doctor Migration (no (no phone) 04-14-2014 phone) NIKKI SAENZ (no - phone) Doctor 04-14-2014 [facility] (no phone) Doctor [facility] (no phone) NIKKI SAENZ (no phone) 03-08-2014 [facility] no information NIKKI SAENZ (no phone) [facility] - Doctor Migration (no (no phone) 03-08-2014 phone) NIKKI SAENZ (no - phone) Doctor 03-08-2014 [facility] (no phone) Doctor [facility] (no phone) NIKKI SAENZ (no phone) 12-18-2013 [facility] no information NIKKI SAENZ (no phone) [facility] - Doctor Migration (no (no phone) 12-18-2013 phone) NIKKI SAENZ (no - phone) Doctor 12-18-2013 [facility] (no phone) Doctor [facility] (no phone) NIKKI SAENZ (no phone) 12-02-2013 [facility] no information NIKKI SAENZ (no phone) [facility] - Doctor Migration (no (no phone) 12-02-2013 phone) NIKKI SAENZ (no - phone) Doctor 12-02-2013 [facility] (no phone) NIKKI SAENZ (no phone) Doctor [facility] (no phone) 10-19-2013 [facility] no information NIKKI SAENZ (no phone) [facility] - Doctor Migration (no (no phone) 10-19-2013 phone) NIKKI SAENZ (no - phone) Doctor 10-19-2013 [facility] (no phone) NIKKI SAENZ (no phone) Doctor [facility] (no phone) 10-16-2013 [facility] no information NIKKI SAENZ (no phone) [facility] - Doctor Migration (no (no phone) 10-16-2013 phone) NIKKI SAENZ (no - phone) Doctor 10-16-2013 [facility] (no phone) Doctor [facility] (no phone) NIKKI SAENZ (no phone) 09-28-2013 [facility] no information Doctor Migrati on (no [facility] - phone) KENYETTA FU (no phone) 09-28-2013 (no phone) Doctor - Migration (no phone) 09-28-2013 KENYETTA UF (no phone) Doctor [facility] (no phone) KENYETTA FU (no phone) 08-24-2013 [facility] no information NIKKI SAENZ (no phone) [facility] - Doctor Migration (no (no phone) 08-24-2013 phone) NIKKI SAENZ (no - phone) Doctor 08-24-2013 [facility] (no phone) NIKKI SAENZ (no phone) Doctor [facility] (no phone) 08-10-2013 [facility] no information Doctor Migrati on (no [facility] - phone) NIKKI SAENZ (no (no phone) 08-10-2013 phone) Doctor - [facility] (no phone) 08-10-2013 NIKKI SAENZ (no phone) Doctor [facility] (no phone) NIKKI SAENZ (no phone) 08-04-2013 [facility] no information NIKKI SAENZ (no phone) [facility] - Doctor Migration (no (no phone) 08-04-2013 phone) NIKKI SAENZ (no - phone) Doctor 08-04-2013 [facility] (no phone) NIKKI SAENZ (no phone) Doctor [facility] (no phone) 07-10-2013 [facility] no information NIKKI SAENZ (no phone) [facility] - Doctor Migration (no (no phone) 07-10-2013 phone) NIKKI SAENZ (no - phone) Doctor 07-10-2013 [facility] (no phone) NIKKI SAENZ (no phone) Doctor [facility] (no phone) 07-03-2013 [facility] no information KENYETTA FU (no [facility] - phone) Doctor (no phone) 07-03-2013 [facility] (no phone) - KENYETTA FU (no 07-03-2013 phone) Doctor [facility] (no phone) KENYETTA FU (no phone) Doctor [facility] (no phone) 06-19-2013 [facility] no information NIKKI SAENZ (no phone) [facility] - Doctor Migration (no (no phone) 06-19-2013 phone) NIKKI SAENZ (no - phone) Doctor 06-19-2013 [facility] (no phone) NIKKI SAENZ (no phone) Doctor [facility] (no phone) 05-18-2013 [facility] no information NIKKI SAENZ (no phone) [facility] - Doctor Migration (no (no phone) 05-18-2013 phone) NIKKI SAENZ (no - phone) Doctor 05-18-2013 [facility] (no phone) Doctor [facility] (no phone) NIKKI SAENZ (no phone) 05-05-2013 [facility] no information Doctor Migrati on (no [facility] - phone) NIKKI SAENZ (no (no phone) 05-05-2013 phone) Doctor - [facility] (no phone) 05-05-2013 NIKKI SAENZ (no phone) NIKKI SAENZ (no phone) Doctor [facility] (no phone) 04-29-2013 [facility] no information Doctor Migrati on (no [facility] - phone) (no phone) 04-29-2013 - 04-29-2013 04-09-2013 [facility] no information NIKKI SAENZ (no phone) [facility] - Doctor Migration (no (no phone) 04-09-2013 phone) NIKKI SAENZ (no - phone) Doctor 04-09-2013 [facility] (no phone) Doctor [facility] (no phone) NIKKI SAENZ (no phone) 04-02-2013 [facility] no information NIKKI SAENZ (no phone) [facility] - Doctor Migration (no (no phone) 04-02-2013 phone) NIKKI SAENZ (no - phone) Doctor 04-02-2013 [facility] (no phone) Doctor [facility] (no phone) NIKKI SAENZ (no phone) 02-26-2013 [facility] no information Doctor Migrati on (no [facility] - phone) NIKKI SAENZ (no (no phone) 02-26-2013 phone) Doctor - [facility] (no phone) 02-26-2013 NIKKI SAENZ (no phone) NIKKI SAENZ (no phone) Doctor [facility] (no phone) 02-13-2013 [facility] no information Doctor Migrati on (no [facility] - phone) (no phone) 02-13-2013 - 02-13-2013 02-12-2013 [facility] no information NIKKI SAENZ (no phone) [facility] - Doctor Migration (no (no phone) 02-12-2013 phone) NIKKI SAENZ (no - phone) Doctor 02-12-2013 [facility] (no phone) Doctor [facility] (no phone) NIKKI SAENZ (no phone) 01-05-2013 [facility] no information NIKKI SAENZ (no phone) [facility] - Doctor [facility] (no (no phone) 01-05-2013 phone) NIKKI SAENZ (no - phone) Doctor 01-05-2013 [facility] (no phone) Doctor [facility] (no phone) NIKKI SAENZ (no phone) 12-25-2012 [facility] no information NIKKI SAENZ (no phone) [facility] - (no phone) 12-25-2012 - 12-25-2012 12-08-2012 [facility] no information NIKKI SAENZ (no phone) [facility] - (no phone) 12-08-2012 - 12-08-2012 10-23-2012 [facility] no information NIKKI SAENZ (no phone) [facility] - (no phone) 10-23-2012 - 10-23-2012 10-16-2012 [facility] no information NIKKI SAENZ (no phone) [facility] - (no phone) 10-16-2012 - 10-16-2012 10-15-2012 [facility] no information NIKKI SAENZ (no phone) [facility] - (no phone) 10-15-2012 - 10-15-2012 09-23-2012 [facility] no information Doctor Migrati on (no [facility] - phone) (no phone) 09-23-2012 - 09-23-2012 06-30-2012 [facility] no information NIKKI SAENZ (no phone) [facility] - (no phone) 06-30-2012 - 06-30-2012 06-27-2012 [facility] no information Doctor Migrati on (no [facility] - phone) (no phone) 06-27-2012 - 06-27-2012 05-09-2012 [facility] no information NIKKI SAENZ (no phone) [facility] - (no phone) 05-09-2012 - 05-09-2012 03-26-2012 [facility] no information NIKKI SAENZ (no phone) [facility] - (no phone) 03-26-2012 - 03-26-2012 02-25-2012 [facility] no information KENYETTA FU (no [facility] - phone) Doctor (no phone) 02-25-2012 [facility] (no phone) - KENYETTA FU (no 02-25-2012 phone) Doctor [facility] (no phone) Doctor [facility] (no phone) KENYETTA FU (no phone) 01-07-2012 [facility] no information Doctor Migrati on (no [facility] - phone) KENYETTA FU (no phone) 01-07-2012 (no phone) Doctor - [facility] (no phone) 01-07-2012 KENYETTA FU (no phone) KENYETTA FU (no phone) Doctor [facility] (no phone) 12-27-2011 [facility] no information NIKKI SEANZ (no phone) [facility] - (no phone) 12-27-2011 - 12-27-2011 12-18-2011 [facility] no information Doctor Migrati on (no [facility] - phone) (no phone) 12-18-2011 - 12-18-2011 12-11-2011 [facility] no information KENYETTA FU (no [facility] - phone) (no phone) 12-11-2011 - 12-11-2011 11-22-2011 [facility] no information KENYETTA FU (no [facility] - phone) (no phone) 11-22-2011 - 11-22-2011 09-27-2011 [facility] no information KENYETTA FU (no [facility] - phone) (no phone) 09-27-2011 - 09-27-2011 08-30-2011 [facility] no information NIKKI SAENZ (no phone) [facility] - (no phone) 08-30-2011 - 08-30-2011 06-14-2011 [facility] no information NIKKI SAENZ (no phone) [facility] - (no phone) 06-14-2011 - 06-14-2011 06-13-2011 [facility] no information NIKKI SAENZ (no phone) [facility] - (no phone) 06-13-2011 - 06-13-2011 06-12-2011 [facility] no information NIKKI SAENZ (no phone) [facility] - (no phone) 06-12-2011 - 06-12-2011 06-11-2011 [facility] no information NIKKI SAENZ (no phone) [facility] - (no phone) 06-11-2011 - 06-11-2011 05-10-2011 [facility] no information NIKKI SAENZ (no phone) [facility] - (no phone) 05-10-2011 - 05-10-2011 01-05-2011 [facility] no information Doctor Migrati on (no [facility] - phone) (no phone) 01-05-2011 - 01-05-2011 12-05-2010 [facility] no information Doctor Migrati on (no [facility] - phone) (no phone) 12-05-2010 - 12-05-2010 03-14-2009 [facility] no information Doctor Migrati on (no [facility] - phone) (no phone) 03-14-2009 - 03-14-2009 02-21-2009 [facility] no information Doctor Migrati on (no [facility] - phone) (no phone) 02-21-2009 - 02-21-2009 02-15-2009 [facility] no information Doctor Migrati on (no [facility] - phone) (no phone) 02-15-2009 - 02-15-2009 02-07-2009 [facility] no information Doctor Migrati on (no [facility] - phone) (no phone) 02-07-2009 - 02-07-2009 [...] no information ADRIANO BATES (no phone) [facility] - (no phone) 01-24-2018 - 01-24-2018 no information Encounter for dental no name no organi zation name examination and cleaning without abnormal findings no information Encounter for general no name no organ ization name adult medical examination without abnormal findings Medical Equipment No Information Payers The data below is from unstructured sources Payer Name Policy Number Subscriber Name Relationship [facility] [id number] Bradley Winters Jr Self / Same As Patient Wps Medicare [id number] Bradley Winters Jr Self / Same As Patient Payer Name Policy Number Subscriber Name Relationship Medicaid [place] [id number] Bradley Winters,Jr Self / Same As Patient Wps Medicare [id number] Bradley Winters 01 Self / Same As Patient Summary Purpose eClinicalWorks Submission Advance Directives Directive Response Recor ded Date Advance Directives N 06/04 3:37pm Health Care Power of Sales Forecast Analyst Y MOTHER 12/25/12 3:37pm Organ Donor N 12/25/12 3 :37pm Directive Response Recor ded Date Advance Directives N 11:05am Health Care Power of Sales Forecast Analyst Y MOTHER 01/07/13 11:05am Organ Donor N 01/07/13 1 1:05am Directive Response Recor ded Date Advance Directives N 1:20pm Health Care Power of Sales Forecast Analyst N 09/21/12 1:20pm Organ Donor N 09/21/12 1 :20pm Additional Source Comments This clinical document has been generated using [employer] software that has been certified by the Office of the National Coordinator for Health Information Technology (ONC 15.99.04.3023.Diam.31.00.0.152423) and the National Committee for Cleaning Handyman (NCQA, as an eMeasure certified technology). FOR [...] BASED ON T HE PRIMARY CLINICAL RECORDS. [facility] [employer] [facility]. provides no warranty or guara ntee [...] Initial Visit-mpolshakMAADULT OUTREACH 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Requests return callEye BsukRLO-[id number]
[2019-07-28] MEDS ORDERED: LACTATED RINGERS 1,000 ML IV ONE (23:49)
[2019-07-28 23:59] VITALS: BP 112/82
[2019-07-29] VITALS (13 sets, daily range): BP systolic 107–148; BP diastolic 78–93
[2019-07-29] MEDS ORDERED: ENOXAPARIN 40 MG/0.4 ML (LOVENOX) SYR ONE (00:10)
[2019-07-29] MEDS ORDERED: ACETAMINOPHEN 325 MG TABLET PO PRN (00:45)
[2019-07-29] MEDS ORDERED: RT-ALBUTEROL/IPRATROPIUM 3 ML (DUONEB) VIAL INH PRN (00:45)
[2019-07-29] MEDS ORDERED: IBUPROFEN 600 MG (MOTRIN) TAB PO PRN (00:45)
[2019-07-29] MEDS ORDERED: ONDANSETRON 4 MG/2 ML (SDV) Z0FRAN IV PRN (00:45)
[2019-07-29] MEDS ORDERED: LORazepam INJ 2 MG/ML (ATIVAN) VIAL IV PRN ×3 (00:45)
[2019-07-29] MEDS ORDERED: NS (IVPB) 100 ML ONE (01:47)
[2019-07-29] MEDS ORDERED: PIPERACILLIN/TAZO 4.5 GM VIAL (ZOSYN) IV ONE (01:47)
[2019-07-29] MEDS: PIPERACILLIN/TAZOBACTAM (BULK) 4.5 GM in NS (IVPB) 100 ML IV SCH ×3 (02:33→18:15)
[2019-07-29 03:42] LABS: BASOPHILS % (AUTO) 0 % (0-10); EOSINOPHILS # (AUTO) 0.2 10^3/uL (0.0-0.3); EOSINOPHILS % (AUTO) 1 % (0-10); HEMATOCRIT 40 % (40-54); HEMOGLOBIN 13.4 G/DL (13.3-17.7); LYMPHOCYTES # (AUTO) 3.2 X 10^3 (1.0-4.0); LYMPHOCYTES % (AUTO) 27 % (12-44); MEAN CORPUSCULAR HEMOGLOBIN 31 PG (25-34); MEAN CORPUSCULAR HGB CONC 33 G/DL (32-36); MEAN CORPUSCULAR VOLUME 95 FL (80-99); MONOCYTES # (AUTO) 1.8 X 10^3 (0.0-1.0); MONOCYTES % (AUTO) 15 % (0-12); NEUTROPHILS # (AUTO) 6.8 X 10^3 (1.8-7.8); NEUTROPHILS % (AUTO) 57 % (42-75); PLATELET COUNT 240 10^3/uL (130-400); RED CELL DISTRIBUTION WIDTH 13.2 % (10.0-14.5)
[2019-07-29 03:52] LABS: ALANINE AMINOTRANSFERASE 43 U/L (0-55); ALBUMIN 3.5 GM/DL (3.2-4.5); ALKALINE PHOSPHATASE 59 U/L (40-136); BILIRUBIN,TOTAL 0.4 MG/DL (0.1-1.0); BUN/CREATININE RATIO 13; CALCIUM 8.2 MG/DL (8.5-10.1); CARBON DIOXIDE 21 MMOL/L (21-32); CHLORIDE 109 MMOL/L (98-107); GFR ESTIMATED > 60; GLUCOSE 112 MG/DL (70-105); POTASSIUM 3.8 MMOL/L (3.6-5.0); SODIUM 142 MMOL/L (135-145); TOTAL PROTEIN 6.2 GM/DL (6.4-8.2)
[2019-07-29] MEDS ORDERED: ASCO10006 PO (08:23)
[2019-07-29] MEDS ORDERED: LORA-407 PO ×2 (08:23→08:27)
[2019-07-29] MEDS ORDERED: DIVA-76 PO (08:23)
[2019-07-29] MEDS ORDERED: DOCU100C37 PO (08:23)
[2019-07-29] MEDS ORDERED: ACET-2267 PO (08:23)
[2019-07-29] MEDS ORDERED: LEVE250T5 PO (08:23)
[2019-07-29] MEDS ORDERED: BRIM5DRO2 OU (08:23)
[2019-07-29] MEDS ORDERED: GUAI120013 PO (08:23)
[2019-07-29] MEDS ORDERED: LEVE500T6 PO (08:23)
[2019-07-29] MEDS ORDERED: VENL150C98 PO (08:23)
[2019-07-29] MEDS ORDERED: MULT-1029 PO (08:23)
[2019-07-29] MEDS ORDERED: CALC-901 PO (08:23)
--- NOTE | 2019-07-29 08:29 | NUR ---
ENTERED THE MED REC USING THE MEDICATION REVIEW REPORT FROM NANO WEAVER. I ALSO UPDATED THE PREFERRED PHARMACY TO [facility]
[2019-07-29] MEDS: ENOXAPARIN 40 MG/0.4 ML (LOVENOX) SYR SC SCH (09:16)
[2019-07-29] MEDS: LACTATED RINGERS 1,000 ML IV SCH ×2 (09:23→20:04)
--- NOTE | 2019-07-29 09:24 | Diagnostic Imaging Report ---
INDICATION: Pneumonia and sepsis. Comparison made with prior examination from 07/28/2019. FINDINGS: There is cardiomegaly. There is mild venous congestion. There is no pleural effusion or pneumothorax. The mediastinum is unremarkable. IMPRESSION: Cardiomegaly and mild central pulmonary venous congestion. Dictated by: Dictated on workstation # [id number]
[2019-07-29] MEDS ORDERED: ACETAMINOPHEN 500 MG TAB (TYLENOL) PO PRN (09:30)
[2019-07-29] MEDS ORDERED: NON-FORMULARY MEDICATION 1 EA EA (Lorazepam (Ativan) 2 MG) PO PRN (09:30)
[2019-07-29] MEDS ORDERED: DOCUSATE SODIUM 100 MG (COLACE) CAP PO PRN (09:30)
--- NOTE | 2019-07-29 09:32 | History & Physical-Hospitalist ---
History of Present Illness HPI/Chief Complaint CC: Seizure with upper lobe pneumonia suspicious for aspiration HPI: This is a 48yo disabled white male of [facility] who resides at [facility] found to have multiple seizures yesterday, and came in. Upon workup found to have pneumonia, suspicious for aspiration risk. Pt was placed on Zosyn empirically, nebulizer treatments and ICU stepdown status due to high risk for status epilepticus. He is currently feeling a lot better. He did require oxygen last night, suspicious for ALEXSANDER considering his neck circumference also so we will do a respiratory therapy overnight oxygen supplementation evaluation. We will have a midline placed since the IV is in his right thumb. We will restart his home medication seizure medication and continue his supportive care on 4th floor. Source: patient, RN/MD Exam Limitations: physical impairment Date Seen 07/29/19 Time Seen by a Provider: 09:20 Attending Physician Sera Dwyer DO PCP Lisa Ren DO Referring Physician Date of Admission July 28, 2019 at 21:31 Home Medications & Allergies Home Medications Reviewed patient Home Medication Reconciliation performed by pharmacy medication reconciliations coil repair technician and/or nursing. Patients Allergies have been reviewed. Allergies Allergies Coded Allergies No Known Drug Allergies (Unverified09/21/12) Past Frqndup-Jvwntf-Xkxtjw Hx Past Med/Social Hx: Reviewed Nursing Past Med/Soc Hx, Reviewed and Corrections made Patient Social History Marrital Status: single Employed/Student: unemployed Alcohol Use: Denies Use Recreational Drug Use: No Smoking Status: Never a Smoker Recent Foreign Travel: No Contact w/other who traveled: No Recent Hopitalizations: No Recent Infectious Disease Expo: No Immunizations Up To Date Tetanus Booster (TDap): More than 5yrs Pediatric: Yes Date of Pneumonia Vaccine: Dec 27, 2012 Date of Influenza Vaccine: Dec 27, 2012 Seasonal Allergies Seasonal Allergies: No Past Medical History brain surgery Neurological: Traumatic Brain Injury Reproductive: No Sexually Transmitted Disease: No HIV/AIDS: No Genitourinary: Neurogenic Bladder Musculoskeletal: Foot Drop Loss of Vision: Denies Hearing Impairment: Denies Psychosocial: Anxiety History of Blood Disorders: No Family History No Pertinent Family Hx Review of Systems Constitutional: see HPI, weakness Respiratory: cough Psychiatric/Neurological: Seizure Physical Exam Physical Exam Vital Signs Vital Signs - First Documented 07/28/19 07/29/19 07/29/19 19:55 00:34 01:21 Temp 36.9 Pulse 126 Resp 20 B/P (MAP) 116/87 (97) Pulse Ox 94 O2 Delivery Room Air O2 Flow Rate 2.00 FiO2 21 Capillary Refill : Less Than 3 Seconds Height, Weight, BMI Height: 6'2" Weight: 225lbs. 2.0oz. 102.041981nt; 30.72 BMI Method:Estimated General Appearance: No Apparent Distress, Chronically ill, Obese Eyes: Right Eye Normal Inspection, Right Eye PERRL HEENT: PERRL/EOMI, Normal ENT Inspection, Pharynx Normal, Moist Mucous Membranes Neck: Full Range of Motion, Normal Inspection, Non Tender Respiratory: Chest Non Tender, Lungs Clear, No Accessory Muscle Use, No Respiratory Distress, Decreased Breath Sounds Cardiovascular: Regular Rate, Rhythm, No Edema, No Gallop, No JVD, No Murmur, Normal Peripheral Pulses Gastrointestinal: Normal Bowel Sounds, No Organomegaly, No Pulsatile Mass, Non Tender, Soft Back: Normal Inspection, No CVA Tenderness, No Vertebral Tenderness Extremity: Normal Capillary Refill, Normal Inspection, Normal Range of Motion, Non Tender, No Calf Tenderness, No Pedal Edema Neurologic/Psychiatric: Alert, Oriented x3, Normal Mood/Affect, Motor Weakness (left sided, contractures hands) Skin: Normal Color, Warm/Dry Lymphatic: No Adenopathy Results Results/Procedures Labs Laboratory Tests 07/28/19 20:10 07/29/19 03:26 Patient resulted labs reviewed. Assessment/Plan Admission Diagnosis Assessment: Status epilepticus with aspiration PNA TBI hx Mood disorder Night time hypoxia noted in ICU last night on monitor Plan: Home meds IV abx Night time Ox study Lovenox Admission Status: Inpatient Order (span 2 midnights) Reason for Inpatient Admission: seizure with aspiration PNA Diagnosis/Problems Diagnosis/Problems (1) Altered mental status Status: Acute (2) Seizure disorder Status: Acute (3) Pneumonia Status: Acute Qualifiers: Pneumonia type: due to unspecified organism Laterality: right Lung location: upper lobe of lung Qualified Codes: J18.1 - Lobar pneumonia, unspecified organism Clinical Quality Measures DVT/VTE Risk/Contraindication: Risk Factor Score Per Nursin RFS Level Per Nursing on Admit: 1=Low/No VTE PPX SERA DWYER DO July 29, 2019 09:32
[2019-07-29] MEDS ORDERED: LEVETIRACETAM 500 MG (KEPPRA) TAB PO SCH ×2 (09:38→21:00)
[2019-07-29] MEDS ORDERED: LORazepam 1 MG (ATIVAN) TAB PO PRN (10:00)
--- NOTE | 2019-07-29 11:00 | NUR ---
patient to floor via bed, transferred at this time to recliner with assistance from icu aide and 4th floor staff.
[2019-07-29] MEDS: CALCIUM CARB + VIT D 600 MG (CALCARB + D) TAB PO SCH (11:37)
[2019-07-29] MEDS: LEVETIRACETAM 500 MG (KEPPRA) TAB PO SCH ×2 (11:38→21:41)
[2019-07-29] MEDS: ASCORBIC ACID (VIT C) 500 MG TABLET PO SCH ×2 (11:38→16:30)
[2019-07-29] MEDS: LEVETIRACETAM 1,000 MG (KEPPRA) TABLET PO SCH ×2 (11:38→21:40)
[2019-07-29] MEDS: BRIMONIDINE 0.2% (ALPHAGAN) OPHTH SOLN 5 ML BTL OU SCH ×2 (11:39→21:42)
[2019-07-29] MEDS: DIVALPROEX 500 MG DELAYED RELEASE (DEPAKOTE) TAB PO SCH ×2 (11:56→21:41)
[2019-07-29] MEDS ORDERED: guaiFENesin (MUCINEX) 600 MG TAB PO PRN (21:00)
[2019-07-29] MEDS: RT-ALBUTEROL/IPRATROPIUM 3 ML (DUONEB) VIAL INH SCH (22:17)
[2019-07-30] VITALS: BP 123/76
[2019-07-30] MEDS ORDERED: NS (IVPB) 0 ML ONE (03:09)
[2019-07-30] MEDS ORDERED: PIPERACILLIN/TAZO 4.5 GM VIAL (ZOSYN) IV ONE (03:09)
[2019-07-30] MEDS: PIPERACILLIN/TAZOBACTAM (BULK) 4.5 GM in NS (IVPB) 100 ML IV SCH ×2 (03:28→11:27)
[2019-07-30 04:40] VITALS: BP 123/85
[2019-07-30] MEDS: LACTATED RINGERS 1,000 ML IV SCH (06:04)
[2019-07-30] MEDS: CALCIUM CARB + VIT D 600 MG (CALCARB + D) TAB PO SCH (06:33)
[2019-07-30] MEDS: ASCORBIC ACID (VIT C) 500 MG TABLET PO SCH (06:33)
[2019-07-30 06:51] LABS: BASOPHILS % (AUTO) 0 % (0-10); EOSINOPHILS # (AUTO) 0.3 10^3/uL (0.0-0.3); EOSINOPHILS % (AUTO) 3 % (0-10); HEMATOCRIT 42 % (40-54); HEMOGLOBIN 13.7 G/DL (13.3-17.7); LYMPHOCYTES # (AUTO) 2.3 X 10^3 (1.0-4.0); LYMPHOCYTES % (AUTO) 22 % (12-44); MEAN CORPUSCULAR HEMOGLOBIN 31 PG (25-34); MEAN CORPUSCULAR HGB CONC 33 G/DL (32-36); MEAN CORPUSCULAR VOLUME 96 FL (80-99); MEAN PLATELET VOLUME 9.8 FL (7.4-10.4); MONOCYTES # (AUTO) 1.3 X 10^3 (0.0-1.0); MONOCYTES % (AUTO) 12 % (0-12); NEUTROPHILS # (AUTO) 6.5 X 10^3 (1.8-7.8); NEUTROPHILS % (AUTO) 62 % (42-75); PLATELET COUNT 227 10^3/uL (130-400); RED CELL DISTRIBUTION WIDTH 13.2 % (10.0-14.5); WHITE BLOOD COUNT 10.5 10^3/uL (4.3-11.0)
[2019-07-30] MEDS: RT-ALBUTEROL/IPRATROPIUM 3 ML (DUONEB) VIAL INH SCH (07:00)
[2019-07-30] MEDS ORDERED: VENlafaxine XR 75 MG (EFFEXOR XR) CAP PO SCH (07:00)
[2019-07-30] MEDS ORDERED: MULTIVIT W/MINERALS TAB (THERAGRAN M) PO SCH (07:00)
[2019-07-30 07:11] LABS: ALANINE AMINOTRANSFERASE 35 U/L (0-55); ALBUMIN 3.6 GM/DL (3.2-4.5); ALKALINE PHOSPHATASE 60 U/L (40-136); BILIRUBIN,TOTAL 0.5 MG/DL (0.1-1.0); BUN/CREATININE RATIO 10; CALCIUM 8.6 MG/DL (8.5-10.1); CARBON DIOXIDE 26 MMOL/L (21-32); CHLORIDE 104 MMOL/L (98-107); CREATININE SERUM 0.82 MG/DL (0.60-1.30); GFR ESTIMATED > 60; GLUCOSE 107 MG/DL (70-105); POTASSIUM 4.3 MMOL/L (3.6-5.0); SODIUM 141 MMOL/L (135-145); TOTAL PROTEIN 6.5 GM/DL (6.4-8.2)
[2019-07-30 08:00] VITALS: BP 145/85
[2019-07-30] MEDS: LEVETIRACETAM 1,000 MG (KEPPRA) TABLET PO SCH (08:59)
[2019-07-30] MEDS: ENOXAPARIN 40 MG/0.4 ML (LOVENOX) SYR SC SCH (08:59)
[2019-07-30] MEDS: LEVETIRACETAM 500 MG (KEPPRA) TAB PO SCH (08:59)
[2019-07-30] MEDS: BRIMONIDINE 0.2% (ALPHAGAN) OPHTH SOLN 5 ML BTL OU SCH (09:00)
[2019-07-30] MEDS: DIVALPROEX 500 MG DELAYED RELEASE (DEPAKOTE) TAB PO SCH (09:00)
--- NOTE | 2019-07-30 10:05 | Physical Therapy Evaluation ---
PT Evaluation-General Medical Diagnosis Admission Date July 28, 2019 at 21:31 Medical Diagnosis: left hip labral injury/pneumonia/sepsis Onset Date: July 28, 2019 Therapy Diagnosis Therapy Diagnosis: debility/weakness Height/Weight Height (Feet): 6 Height (Inches): 2 Weight (Pounds): 225 Weight (Ounces): 2.0 Precautions Precautions/Isolations: Seizure, Fall Prevention, Standard Precautions Weight Bear Status Right Lower Extremity: Right Full Weight Bearing Left Lower Extremity: Left Weight Bearing/Tolerated Referral Physician: Yuliya Reason for Referral: Evaluation/Treatment Medical History Pertinent Medical History: TBI (left hemiparesis) Additional Medical History seizure disorder/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 Reviewed History: Yes Social History Home: Assisted Living Entry Into Home: Level Entry Prior Prior Level of Function SCALE: Activities may be completed with or without assistive devices. 6-Scddivqcet-mlklpij completes the activity by him/herself with no assistance from a helper. 5-Set-up or Clean-up Assistance-helper sets up or cleans up; patient completes activity. [place] assists only prior to or following the activity. 4-Supervision or Touching Assistance-helper provides verbal cues and/or touching/steadying and/or contact guard assistance as patient completes activity. Assistance may be provided throughout the activity or intermittently. 3-Partial/Moderate Assistance-helper does LESS THAN HALF the effort. [place] lifts, holds or supports trunk or limbs, but provides less than half the effort. 2-Substantial/Maximal Assistance-helper does MORE THAN HALF the effort. [place] lifts or holds trunk or limbs and provides more than half the effort. 0-Vckmfuwnp-ufqnlp does ALL the effort. Patient does none of the effort to complete the activity. Or, the assistance of 2 or more helpers is required for the patient to complete the activity. If activity was not attempted, code reason: 7-Patient Refused. 9-Not Applicable-not attempted and the patient did not perform the activity before the current illness, exacerbation or injury. 10-Not Attempted due to Environmental Limitations-(lack of equipment, weather restraints, etc.). 88-Not Attempted due to Medical Conditions or Safety Concerns. Bed Mobility: 3 Transfers (B,C,W/C): 3 Gait: 3 Stairs: 9 Wheelchair Mobility: 4 Indoor Mobility (Ambulation): Needed Some Help Stairs: Not Applicalbe Prior Devices Use: Manual wheelchair, Other-see list below Prior Device Use: cane due to left hemiparesis PT Evaluation-Current Subjective Patient reluctantly agrees to PT. Pain Numeric Pain Scale: 10-Worst Possible Pain Location: Left Location Body Site: Hip Pain Description: Acute Objective Patient Orientation: Person, Time, Situation Attachments: IV ROM/Strength ROM Lower Extremities left LE increase tone due to TBI/right LE WFL (dependent assist to don left AFO) Strength Lower Extremities right LE 4-/5 grossly / left LE tone noted Integumentary/Posture Integumentary refer to nursing notes Bowel Incontinence: Yes Bladder Incontinence: Yes Posture WFL Neuromuscular (Tone, Coordination, Reflexes) left hemiparesis with increase LE tone and use of AFO for stand Sensory Vision: Wears Glasses Hearing: Functional Sensation Right Lower Extremit: Intact Sensation Left Lower Extremity: Impaired Transfers Roll Left to Right (QC): 2 Sit to Lying (QC): 2 Lying to Sitting/Side of Bed(Q: 2 Sit to Stand (QC): 2 max assist with sit to stand and all bed mobility due to left hip pain. Patient impulsively sits from standing position due to pain. Gait Does the Patient Walk?: No and Walking Goal IS indicated Balance Sitting Static: Fair Sitting Dynamic: Fair Standing Static: Poor Standing Dynamic: Poor Assessment/Needs 48 y.o. male, will benefit from skilled PT to address functional mobility to improve current LOF. Patient demonstrated impulsive behavior with sitting (throwing self to bed backward) due to left hip pain. Rehab Potential: Fair PT Rn On Site Goals Rn On Site Goals PT Rn On Site Goals Time Frame: August 08, 2019 Roll Left & Right (QC): 4 Sit to Lying (QC): 4 Lying-Sitting on Side/Bed(QC): 4 Sit to Stand (QC): 4 Chair/Sbt-vx-Nbzzd Xfer(QC): 4 PT Plan Problem List Problem List: Activity Tolerance, Functional Strength, Safety, Balance, Gait, Transfer, Bed Mobility Treatment/Plan Treatment Plan: Continue Plan of Care Treatment Plan: Bed Mobility, Education, Functional Activity Amado, Functional Strength, Gait, Safety, Therapeutic Exercise, Transfers Treatment Duration: August 08, 2019 Frequency: 6 times per week Estimated Hrs Per Day: .25 hour per day Time/GCodes Time In: 915 Time Out: 933 Total Billed Treatment Time: 18 [facility] CALVIN BAUER PT July 30, 2019 10:04
--- NOTE | 2019-07-30 10:06 | NUR ---
OVER NIGHT Addendum: 07/30/19 at 1006 by ASHLYN GARCIA RT Amended: Links added.
[2019-07-30] MEDS ORDERED: CEFD300C3 PO (10:38)
--- NOTE | 2019-07-30 10:42 | Discharge Summary ---
Discharge Summary Hospital Course Was the Problem List Reviewed?: Yes Problems/Dx: (1) Altered mental status Status: Acute (2) Seizure disorder Status: Acute (3) Pneumonia Status: Acute Qualifiers: Qualified Codes: J18.1 - Lobar pneumonia, unspecified organism Hospital Course Date of Admission: July 28, 2019 at 21:31 Admission Diagnosis : Family Physician/Provider: Lisa Ren DO Date of Discharge: 07/30/19 Discharge Diagnosis: Status epilepticus, aspiration PNA, TBI hx Hospital Course: Hospital course: Pt had an uneventful hospital course after he was admitted for status epilepticus that was resolved at the time he was admitted, but pneumonia found on X-ray and he was tachycardic at 125 and considering his traumatic brain injury he needed close monitoring to prevent decompensation, he lives in assisted living. He was placed on Zosyn empiric treatment, restarted all home meds, white count and the rest of the labs returned to normal and he was ready for discharge back to [facility] to complete an Omnicef antibiotic treatment for an additional five days. Labs and Pending Lab Test: Laboratory Tests 07/30/19 06:40: White Blood Count 10.5, Red Blood Count 4.41, Hemoglobin 13.7, Hematocrit 42, Mean Corpuscular Volume 96, Mean Corpuscular Hemoglobin 31, Mean Corpuscular Hemoglobin Concent 33, Red Cell Distribution Width 13.2, Platelet Count 227, Mean Platelet Volume 9.8, Neutrophils (%) (Auto) 62, Lymphocytes (%) (Auto) 22, Monocytes (%) (Auto) 12, Eosinophils (%) (Auto) 3, Basophils (%) (Auto) 0, Neutrophils # (Auto) 6.5, Lymphocytes # (Auto) 2.3, Monocytes # (Auto) 1.3H, Eosinophils # (Auto) 0.3, Basophils # (Auto) 0.0, Sodium Level 141, Potassium Level 4.3, Chloride Level 104, Carbon Dioxide Level 26, Anion Gap 11, Blood Urea Nitrogen 8, Creatinine 0.82, Estimat Glomerular Filtration Rate > 60, BUN/Creat inine Ratio 10, Glucose Level 107H, Calcium Level 8.6, Corrected Calcium 8.9, Total Bilirubin 0.5, Aspartate Amino Transf (AST/SGOT) 19, Alanine Aminotransferase (ALT/SGPT) 35, Alkaline Phosphatase 60, Total Protein 6.5, Albumin 3.6 Home Meds Active Cefdinir 300 Mg Capsule 300 Mg PO BID Reported Ativan (Lorazepam) 2 Mg Tablet 2 Mg PO PRN PRN GIVE AT ONSET OF SEIZURE AND CALL AND NOTIFY PHYSICAN OF USE AND RECIEVE FURTHER ORDERS Vitamin C (Ascorbic Acid) 1,000 Mg Tablet 1,000 Mg PO BID Tylenol Extra Strength (Acetaminophen) 500 Mg Tablet 500 Mg PO Q8H PRN Mucinex (Guaifenesin) 1,200 Mg Tab.er.12h 1,200 Mg PO Q12H PRN Docusate Sodium 100 Mg Capsule 100 Mg PO DAILY PRN Centrum Silver Tablet (Multivit-Min/FA/Lycopene/Lut) 1 Each Tablet 1 Each PO DAILY Calcium 600 + Vit D 800 Tab (Calcium Carbonate/Vitamin D3) 1 Each Tablet 1 Each PO DAILY Ativan (Lorazepam) 2 Mg Tablet 2 Mg PO Q6H PRN Levetiracetam 250 Mg Tablet 250 Mg PO BID Levetiracetam 500 Mg Tablet 1,500 Mg PO BID TAKES 3 (500MG) TABS TWICE DAILY Alphagan P (Brimonidine Tartrate) 5 Ml Drops 1 Drop OU BID Divalproex Sodium 500 Mg Tablet.dr 500 Mg PO BID Venlafaxine HCl ER (Venlafaxine HCl) 150 Mg Cap.er.24h 150 Mg PO DAILY Assessment/Pt Instructions [facility] 1 week Discharge Planning: <30 minutes discharge planning Discharge Instructions Discharge Diet: No Restrictions Discharge Physical Examination Vital Signs Vital Signs Date Time Temp Pulse Resp B/P (MAP) Pulse Ox O2 Delivery O2 Flow Rate FiO2 07/30/19 09:00 94 Room Air 07/30/19 08:00 36.2 98 20 145/85 (105) 07/29/19 12:00 4.00 07/29/19 08:34 21 General Appearance: No Apparent Distress, WD/WN, Chronically ill Allergies: Coded Allergies: No Known Drug Allergies (Unverified , 09/21/12) Discharge Summary Date of Admission July 28, 2019 at 21:31 Date of Discharge Discharge Date: July 30, 2019 Admission Diagnosis Assessment: Status epilepticus with aspiration PNA TBI hx Mood disorder Night time hypoxia noted in ICU last night on monitor Plan: Home meds IV abx Night time Ox study Lovenox Discharge Diagnosis (1) Altered mental status Status: Acute (2) Seizure disorder Status: Acute (3) Pneumonia Status: Acute Qualifiers: Qualified Codes: J18.1 - Lobar pneumonia, unspecified organism Clinical Quality Measures DVT/VTE Risk/Contraindication: Risk Factor Score Per Nursin RFS Level Per Nursing on Admit: 1=Low/No VTE PPX DENNIS ESPINOZA DO July 30, 2019 10:42
--- NOTE | 2019-07-30 10:50 | Physical Therapy Daily Note ---
PT Daily Note-Current Subjective Patient instructed to perform gait with cane to chair and back to ensure safe return to [facility]. Patient agrees. Pain Numeric Pain Scale: 8 Location: Left Location Body Site: Hip Comment: FLACC Transfers SCALE: Activities may be completed with or without assistive devices. 9-Azbqtesgxs-euishel completes the activity by him/herself with no assistance from a helper. 5-Set-up or Clean-up Assistance-helper sets up or cleans up; patient completes activity. Umpire assists only prior to or following the activity. 4-Supervision or Touching Assistance-helper provides verbal cues and/or touching/steadying and/or contact guard assistance as patient completes activity. Assistance may be provided throughout the activity or intermittently. 3-Partial/Moderate Assistance-helper does LESS THAN HALF the effort. Umpire lifts, holds or supports trunk or limbs, but provides less than half the effort. 2-Substantial/Maximal Assistance-helper does MORE THAN HALF the effort. Umpire lifts or holds trunk or limbs and provides more than half the effort. 2-Znltjskql-fcafhu does ALL the effort. Patient does none of the effort to complete the activity. Or, the assistance of 2 or more helpers is required for the patient to complete the activity. If activity was not attempted, code reason: 7-Patient Refused. 9-Not Applicable-not attempted and the patient did not perform the activity before the current illness, exacerbation or injury. 10-Not Attempted due to Environmental Limitations-(lack of equipment, weather restraints, etc.). 88-Not Attempted due to Medical Conditions or Safety Concerns. Sit to Stand (QC): 4 Chair/Yrs-wb-Rzqwi Xfer(QC): 4 Weight Bearing Right Lower Extremity: Right Full Weight Bearing Left Lower Extremity: Left Weight Bearing/Tolerated Gait Training Does the Patient Walk?: Yes Distance: 10' x 2 Walk 10 feet (QC): 4 Gait Assistive Device: Walker Golden leads with left LE to ambulate bed to recliner to bed x 2 with CGA assist Assessment Patient performed gait training and is up in recliner with needs met. Patient advances left LE first with gait with cane (hemiwalker). SW notified to contact AL on LOF. PT Decatizer Goals Penitentiary Goals PT Penitentiary Goals Time Frame: August 08, 2019 Roll Left & Right (QC): 4 Sit to Lying (QC): 4 Lying-Sitting on Side/Bed(QC): 4 Sit to Stand (QC): 4 Chair/Djr-ue-Kaouk Xfer(QC): 4 PT Plan Treatment/Plan Treatment Plan: Continue Plan of Care Treatment Plan: Bed Mobility, Education, Functional Activity Amado, Functional Strength, Gait, Safety, Therapeutic Exercise, Transfers Treatment Duration: August 08, 2019 Frequency: 6 times per week Estimated Hrs Per Day: .25 hour per day Time/GCodes Time In: 1035 Time Out: 1046 Total Billed Treatment Time: 11 Total Billed Treatment 1 visit GT 11 min CALVIN BAUER PT July 30, 2019 10:50
--- NOTE | 2019-07-30 11:31 | Occ Therapy Progress Note ---
Therapy Progress Note OT educated pt on purpose and benefits of OT, he verbalized understanding. Pt reports he is at his PLOF with ADLs and has assistance at prior level, and he declines OT at this time. Pt also reports he is hoping to d/c today. Due to pt declining OT and reporting he is at his baseline, skilled OT services are not indicated at this time. Thank you for this referral. 1, visit 11:00 HARMONY PLUMMER OT July 30, 2019 11:31
--- NOTE | 2019-07-30 12:37 | NUR ---
CM/SS: Visited with pt as to plan to return to [facility]. Plan: Pt to return to [facility] today Summary: Pt is doing ok today. He reports he has lived at [facility] for 10 years after his traumatic brain injury. He reports he is able to get around in his room at the facility. Pt reports that he uses a wheelchair when he goes out of his room. Pt reports there has been no change with how he is getting around. Facility want to ensure that pt can bear weight and walk 15 steps. Physical therapy has worked with pt and he is able to do so. Facility nurse and Renal Technician are informed of this. Discharge summary and paperwork from his ER, and progress notes are faxed to facility. [phone]. 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
[2019-07-30 13:50] VITALS: BP 145/85
--- NOTE | 2019-07-30 13:55 | NUR ---
ATTEMPTED TO CALL REPORT TO GLENDY AT [facility]. SHE STATED THAT THEY COULD NOT TAKE HIM. SHE REPORTED THAT HE IS NOT AT HIS PRIOR LEVEL OF FUNCTIONING. THIS RN ATTEMPTED TO LET HER KNOW THAT THE PATIENT GOT UP FROM THE BED BY HIMSELF AND WALKED TO THE CHAIR AND BACK TO THE BED WITH HIS CANE. THIS WAS WITNESSED BY Eliud SIMPSON, [facility], AND THIS RN. GLENDY KEPT INTERRUPTING STATING THAT THEY COULD NOT TAKE HIM. I LET HER KNOW I WOULD TALK TO THE HEAD STILL OPERATOR TO SEE WHAT COULD BE DONE. SHE WANTED TO KNOW WHAT THE HEAD STILL OPERATOR COULD DO ABOUT IT. IT EXPLAINED THAT I WAS NOT SURE WHAT NEEDED TO BE DONE AND SHE MIGHT HAVE SOME IDEA SINCE SHE FACILITATED THE DISCHARGE WITH [facility].
== END 2019-07-30 10:36 | disposition home or self-care (01) ==
LOC: EDUNIT# 19:52 → ER 19:53 → ICU 21:31 → UNDOADMOB 21:31 → ICU 23:55 → 4TH 07-29 10:55 → UNDODISOB 07-30 14:32
PROVIDERS: ADMIT Internal Medicine; ATTEND Internal Medicine
DX: G40.901 Epilepsy, unspecified, 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ble, with status epilepticus (principal); J69.0 Pneumonitis due to inhalation of food and vomit; M25.552 Pain in left hip; M21.379 Foot drop, unspecified foot; R41.82 Altered mental status, unspecified; F41.9 Anxiety disorder, unspecified; Z79.899 Other long term (current) drug therapy; Z87.820 Personal history of traumatic brain injury
CPT/HCPCS: 36415; 71045; 73700; 76937; 80053; 80164; 81000; 84145; 85025; 85610; 94640; 94664; 94760; 96361; 96365; 96375; G0378

== ENCOUNTER 2020-07-05 20:02 | Emergency (ER) | payer MEDICARE, MEDICAID ==
[~2020-07-05] VITALS: Ht 188 cm; Wt 70.3 kg
[~2020-07-05 20:02] MED LIST changes: +ACET-2267 PO; +ASCO100024 PO; +BRIM5DRO2 OU; +CALC-901 PO; +CEFD300C3 PO; +DIVA-76 PO; +DOCU100C37 PO; +GUAI120013 PO; +LEVE250T5 PO; +LEVE500T6 PO; +LORA-407 PO; +VENL150C98 PO
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
--- NOTE | 2020-07-05 20:54 | Diagnostic Imaging Report ---
INDICATION: Fall and pain AP view of the chest is obtained with comparison made to study of 07/29/2019. FINDINGS: Heart size and pulmonary vascularity are within normal limits, and the lungs are clear, bilaterally. IMPRESSION: Unremarkable chest. Dictated by: Dictated on workstation # [id number]
[2020-07-05 21:33] VITALS: BP 130/99
== END 2020-07-05 21:33 | disposition home or self-care (01) ==
LOC: EDUNIT# 20:02 → ER 20:05
DX: S70.02XA Contusion of left hip, initial encounter (principal); F41.9 Anxiety disorder, unspecified; Z87.820 Personal history of traumatic brain injury; W17.89XA Other fall from one level to another, initial encounter
CPT/HCPCS: 71045

== ENCOUNTER 2021-04-16 15:41 | Emergency (ER) | payer MEDICARE, MEDICAID ==
[~2021-04-16] VITALS: Ht 188 cm; Wt 100.0 kg
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
[2021-04-16 16:51] LABS: BASOPHILS # (AUTO) 0.1 10^3/uL (0.0-0.1); BASOPHILS % (AUTO) 1 % (0-10); EOSINOPHILS # (AUTO) 0.2 10^3/uL (0.0-0.3); EOSINOPHILS % (AUTO) 2 % (0-10); HEMATOCRIT 46 % (40-54); HEMOGLOBIN 14.8 g/dL (13.3-17.7); LYMPHOCYTES # (AUTO) 2.9 10^3/uL (1.0-4.0); LYMPHOCYTES % (AUTO) 31 % (12-44); MEAN CORPUSCULAR HEMOGLOBIN 31 pg (25-34); MEAN CORPUSCULAR HGB CONC 32 g/dL (32-36); MEAN CORPUSCULAR VOLUME 98 fL (80-99); MEAN PLATELET VOLUME 9.7 fL (9.0-12.2); MONOCYTES # (AUTO) 1.1 10^3/uL (0.0-1.0); MONOCYTES % (AUTO) 11 % (0-12); NEUTROPHILS # (AUTO) 5.1 10^3/uL (1.8-7.8); NEUTROPHILS % (AUTO) 54 % (42-75); PLATELET COUNT 285 10^3/uL (130-400); WHITE BLOOD COUNT 9.5 10^3/uL (4.3-11.0)
[2021-04-16 17:00] LABS: ALBUMIN 3.8 GM/DL (3.2-4.5)
[2021-04-16 17:02] LABS: CALCIUM 9.2 MG/DL (8.5-10.1)
[2021-04-16 17:05] LABS: BILIRUBIN,TOTAL 0.3 MG/DL (0.1-1.0)
[2021-04-16 17:07] LABS: CREATININE SERUM 0.85 MG/DL (0.60-1.30)
--- NOTE | 2021-04-16 17:27 | Diagnostic Imaging Report ---
INDICATION: Cough. FINDINGS: There is trace left basilar partial atelectasis. No findings of edema or pneumonia. No effusion or pneumothorax. No failure pattern. IMPRESSION: Slight left basilar atelectasis, otherwise unremarkable. Dictated by: Dictated on workstation # [id number]
--- NOTE | 2021-04-16 17:34 | Diagnostic Imaging Report ---
PROCEDURE: CT head without contrast. TECHNIQUE: Multiple contiguous axial images were obtained through the brain without the use of intravenous contrast. Auto Exposure Controls were utilized during the CT exam to meet ALARA standards for radiation dose reduction. INDICATION: Seizures, confusion, weakness. COMPARISON: Study of 05/03/2014. FINDINGS: Chronic right frontoparietal craniectomy present. There is extensive right hemispheric encephalomalacia, chronic. There is associated compensatory dilatation of the right lateral ventricle. More mild left frontal lobe encephalomalacia, also stable and chronic. No edema. No new site of abnormal attenuation. No findings of internal or external brain herniation. No evidence for elevation of pressures. No acute appearing calvarial pathology. There is paranasal sinus membrane thickening in the right greater than left maxillaries. There is nasal bone fracture deformities without overlying swelling, presumed chronic. Nasal bones below field of view of comparison. There is some old depression of the medial orbital amaro chronic no acute bony abnormality. IMPRESSION: Extensive areas of encephalomalacia and ventriculomegaly, stable from prior. No hemorrhage, edema or acute intracerebral pathology. Postsurgical changes and chronic appearing paranasal sinus disease. Chronic bony findings stable. Dictated by: Dictated on workstation # [id number]
[2021-04-16 18:03] VITALS: BP 130/92
== END 2021-04-16 18:03 | disposition home or self-care (01) ==
LOC: EDUNIT# 15:41 → ER 15:43
DX: G40.909 Epilepsy, unspecified, 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ble, without status epilepticus (principal); B34.9 Viral infection, unspecified; F41.9 Anxiety disorder, unspecified; Z87.820 Personal history of traumatic brain injury; Z20.822 Contact with and (suspected) exposure to COVID-19; Z79.899 Other long term (current) drug therapy
CPT/HCPCS: 36415; 70450; 71045; 80053; 84145; 85025; 87636

== ENCOUNTER 2022-06-19 18:51 | Emergency (ER) | payer MEDICARE, MEDICAID ==
[~2022-06-19] VITALS: Ht 188 cm; Wt 113.0 kg
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
--- NOTE | 2022-06-19 19:42 | Diagnostic Imaging Report ---
INDICATION: Fall with left foot pain. Time of Exam: 7:39 PM Metatarsals are intact. Phalanges appear intact. Midfoot and hindfoot are unremarkable. No fractures are seen. IMPRESSION: No acute bony abnormality is detected. Dictated by: Dictated on workstation # [id number]
--- NOTE | 2022-06-19 19:43 | Diagnostic Imaging Report ---
INDICATION: Fall. Time of Exam: 7:33 PM Single view of the pelvis shows normal femoral acetabular alignment. Rami are intact. Hips appear intact. SI joints and symphysis are non-widened. No fractures are seen. LOCKSTITCH SHOULDER JOINER shunt tubing appears to be within the midline pelvis. IMPRESSION: No acute bony abnormality is detected. Dictated by: Dictated on workstation # [id number]
--- NOTE | 2022-06-19 19:44 | Diagnostic Imaging Report ---
INDICATION: Fall. Time of Exam: 7:34 PM Two views of the left femur were obtained. Alignment at the hip and knee is normal. Femur is intact. No fractures are seen. There are degenerative changes in the patellofemoral joint. IMPRESSION: No acute bony abnormality is detected. Dictated by: Dictated on workstation # [id number]
--- NOTE | 2022-06-19 19:45 | Diagnostic Imaging Report ---
INDICATION: Fall with left leg pain. Time of Exam: 7:36 PM Two views of the left tibia and fibula demonstrate normal alignment at the knee and ankle. Tibia and fibula appear intact. No fractures are seen. IMPRESSION: No acute bony abnormality is detected. Dictated by: Dictated on workstation # [id number]
--- NOTE | 2022-06-19 19:47 | Diagnostic Imaging Report ---
EXAMINATION: CT thoracic and lumbar spine without contrast. TECHNIQUE: Multiple contiguous axial images were obtained through the thoracic and lumbar spine without the use of intravenous contrast. Sagittal and coronal reformations were then performed. All CT scans use one or more of the following dose optimizing techniques: automated exposure control, MA and/or KvP adjustment based on patient size and exam type or iterative reconstruction. HISTORY: Back pain COMPARISON: 12/25/2012. FINDINGS: The alignment of the thoracic and lumbar spine is normal. There are compression fractures of the T12, L1, and L4 vertebral bodies. The L4 and L1 compression fractures were seen on a prior CT of 12/25/2012. No other acute fracture is seen. There is mild lumbar facet hypertrophy. Disk heights are normal. There is mild thoracolumbar spondylosis. Spinal stimulator leads are present. Limited views of the soft tissues show no abnormality. The aorta is normal. IMPRESSION: 1. Age indeterminate compression fracture of the T12 vertebral body. Chronic compression fractures of the L1 and L4 vertebral bodies. 2. No other acute osseous abnormality. Dictated by: Dictated on workstation # [id number]
[2022-06-19 20:44] VITALS: BP 123/87
== END 2022-06-19 21:20 ==
LOC: EDUNIT# 18:51 → ER 18:53
DX: S93.402A Sprain of unspecified ligament of left ankle, initial encounter (principal); S30.0XXA Contusion of lower back and pelvis, initial encounter; M48.56XA Collapsed vertebra, not elsewhere classified, lumbar region, initial encounter for fracture; Z87.820 Personal history of traumatic brain injury; W18.30XA Fall on same level, unspecified, initial encounter; Y92.129 Unspecified place in nursing home as the place of occurrence of the external cause
CPT/HCPCS: 70450; 72125; 72128; 72131; 72170; 73552; 73590; 73630